=== PATIENT | female | born 1950 | race Caucasian/White ===

== ENCOUNTER 2016-05-11 08:37 | Inpatient (IN) | payer OTHER, MEDICARE ==
[~2016-05-11] VITALS: Ht 170.2 cm; Wt 70.8 kg
--- NOTE | 2016-05-11 09:00 | NUR ---
PT BIBA FROM DIALYSIS WHERE SHE WAS SNF THROUGH HER DIALYSIS WHEN SHE WILFRED DOWN INTO THE 30'S. PER EMS, UPON THEIR ARRIVAL PT BECAME UNRESPONSIVE. UPON ARRIVAL TO ED, PT BEING BAGGED BY EMS, PER EMS, UNABLE TO INTUBATE D/T GAG REFLEX. UPON ARRIVAL, RT AND DR JASMINE AT BEDSIDE. BIPAP PLACED AND PT MOANING CONSTANTLY. PT FOLLOWING COMMANDS TO OPEN EYES. PT MOVING ALL OVER STRETCHER. PT USUALLY SEEN AT [facility]
[2016-05-11 09:10] LABS: ABSOLUTE BASOPHIL COUNT 0.1 /CUMM (0.0-0.2); ABSOLUTE EOSINOPHIL COUNT 0.4 /CUMM (0.0-0.7); ABSOLUTE GRANULOCYTE CT 11.8 /CUMM (1.4-6.5); ABSOLUTE LYMPH COUNT 2.7 /CUMM (1.2-3.4); ABSOLUTE MONOCYTE COUNT 0.5 /CUMM (0.10-0.60); BASOPHIL % 0.4 % (0.0-2.0); EOSINOPHIL % 2.4 % (0-5); GRANULOCYTE % 76.7 % (42.2-75.2); HEMATOCRIT 22.4 % (37-47); MEAN CORPUSCULAR HGB 30.8 PG (27.0-31.0); MEAN PLATELET VOLUME 8.4 FL (7.4-10.4); PLATELET COUNT 447 /CUMM (130-400); RBC DISTRIBUTION WIDTH 17.4 % (11.5-14.5); RED BLOOD CELL CT 2.34 /CUMM (4.20-5.40); WHITE BLOOD CELL COUNT 15.3 /CUMM (4.8-10.8)
--- NOTE | 2016-05-11 09:10 | ED GENERAL ADULT ---
History of Present Illness General Chief Complaint: General Adult Stated Complaint: UNRESPONSIVE Source: EMS Exam Limitations: unable to give history Vital Signs & Intake/Output Vital Signs & Intake/Output Vital Signs Date Time Temp Pulse Resp B/P Pulse O2 O2 Flow FiO2 Ox Delivery Rate 05/11 1006 96.1 78 22 154/68 100 BIPAP 100% 05/11 0930 96.4 80 22 174/78 100 BIPAP 05/11 0859 106 100 05/11 0857 180/62 05/11 0852 95.2 82 22 202/117 100 BIPAP 100% Allergies Coded Allergies: No Known Allergies (05/11/16) Reconcile Medications Amlodipine Besylate 10 MG TABLET 1 TAB PO DAILY HEART (Reported) Calcium Acetate 667 MG TABLET 3 TAB PO TIDAC UNKNOWN (Reported) Carvedilol 3.125 MG TABLET 1 TAB PO BID HEART (Reported) Ergocalciferol (Vitamin D2) (Vitamin D2) 50,000 UNIT CAPSULE 1 CAP PO DAILY SUPPLEMENT (Reported) Eszopiclone (Lunesta) 1 MG TABLET 1 TAB PO QPM SLEEP (Reported) Furosemide (Lasix) 40 MG TABLET 1 TAB PO DAILY WATER PILL (Reported) Hydralazine HCl 25 MG TABLET 2 TAB PO TID UNKNOWN (Reported) Insulin Glargine,Hum.rec.anlog (Lantus Solostar) 100 UNIT/ML (3 ML) INSULN.PEN 10 U SC 1200 DIABETES (Reported) Lisinopril 40 MG TABLET 1 TAB PO DAILY HEART (Reported) Multivitamin (Daily Multiple Vitamin) 1 EACH TABLET 1 TAB PO DAILY SUPPLEMENT (Reported) Sertraline HCl 50 MG TABLET 1 TAB PO DAILY MENTAL HEALTH (Reported) Warfarin Sodium (Coumadin) 5 MG TABLET 1 TAB PO Fri BLOOD THINNER ( Reported) Warfarin Sodium (Coumadin) 7.5 MG TABLET 1 TAB PO Fri BLOOD THINNER ( Reported) Triage Note: PT BIBA FROM DIALYSIS WHERE SHE WAS DETENTION THROUGH HER DIALYSIS WHEN SHE WILFRED DOWN INTO THE 30'S. PER EMS, UPON THEIR ARRIVAL PT BECAME UNRESPONSIVE. UPON ARRIVAL TO ED, PT BEING BAGGED BY EMS, PER EMS, UNABLE TO INTUBATE D/T GAG REFLEX. UPON ARRIVAL, RT AND DR JASMINE AT BEDSIDE. BIPAP PLACED AND PT MOANING CONSTANTLY. PT FOLLOWING COMMANDS TO OPEN EYES. PT MOVING ALL OVER STRETCHER. PT USUALLY SEEN AT [facility] HPI: Patient 77-year-old lady with past medical history of ESRD requiring dialysis, HTN, anemia requiring high doses of EPO, is BIBA after having difficulty breathing and destaurating in the 60s while going through dialysis. Even though pt is awake, she is minimally responsive and not able to give a history. Per EMS , pt became unresponsive while dialysing, her heart rate was in the 30s which came back to the 50s when she was bagged. Due to gag reflex, was unable to be intubated by EMS. Pt receives dialysis at [facility], had only been dialysed 300mls, before she destaurated. Pt does not have any medical records at [place], normally goes to [facility]. (BRE SÁNCHEZ MD) Triage Nurses Notes Reviewed? yes (MAO JASMINE MD) Past History Travel History Traveled to [place] past 21 day No Psychosocial History What is your primary language Stateless Tobacco Use: UN (BRE SÁNCHEZ MD) Medical History Any Pertinent Medical History? see below for history Surgical History Surgical History: non-contributory Family History Hx Contributory? No (MAO JASMINE MD) Review of Systems Review of Systems Constitutional: Reports: see HPI. Respiratory: Reports: see HPI. (MAO JASMINE MD) Physical Exam Physical Exam General Appearance: awake, moderate distress Head: atraumatic, normal appearance Eyes: Bilateral: PERRL. Neck: normal inspection, supple, full range of motion Respiratory: crackles Cardiovascular: regular rate/rhythm Gastrointestinal: normal bowel sounds, soft Extremities: normal capillary refill, no edema Skin: intact, normal color, warm/dry (BRE SÁNCHEZ MD) Physical Exam Neurologic/Psych: VERBAL TO PAINFUL STIMULAE Core Measures ACS in differential dx? Yes CVA/TIA Diagnosis: No Severe Sepsis Present: No Septic Shock Present: No (MAO JASMINE MD) Progress Differential Diagnoses I considered the following diagnoses in my evaluation of the patient: pulmonary edema, TN, PE, Cardiac tamponade, PNA, ARDS. Plan of Care: Orders Procedure Date/time Status Patient Data 05/11 945 Active Admit to inpatient 05/11 939 Active BIPAP 05/11 935 Complete Lab Add-on Test 05/11 921 Active Restraint- Medical 05/11 907 Active URINALYSIS 05/11 0850 Complete TYPE & SCREEN (NOT X-MATCH) 05/11 0843 Active ARTERIAL BLOOD GAS (GEN) 05/11 841 Complete XRY-PORTABLE CHEST XRAY 05/11 841 Active Telemetry/Neurological Surgeon 05/11 841 Active TROPONIN LEVEL 05/11 841 Complete COMPREHENSIVE METABOLIC PANEL 05/11 841 Complete CBC WITHOUT DIFFERENTIAL 05/11 841 Complete EKG 05/11 08 Active Laboratory Tests 05/11/16 0850: Urinalysis LIGHT H, Urine Color YEL, Urine Clarity CLEAR, Urine pH 7.5, Ur Specific [place] 1.020, Urine Protein >=300 H, Urine Ketones NEG, Urine Nitrite NEG, Urine Bilirubin NEG, Urine Urobilinogen 0.2, Ur Leukocyte Esterase NEG, Ur Microscopic SEDIMENT EXAMINED, Urine RBC 1-3, Urine WBC 1-3 H, Ur Epithelial Cells RARE, Urine Mucus RARE, Urine Hemoglobin TRACE-LYSED, Urine Glucose 100 H 05/11/16 0843: Anion Gap 15, Estimated GFR 15 L, BUN/Creatinine Ratio 6.6 L, Glucose 312 H, Calcium 7.8 L, Total Bilirubin 0.5, AST 60 H, ALT 43, Alkaline Phosphatase 178 H, Troponin I 0.02, Total Protein 6.4, Albumin 3.6, Globulin 2.8, Albumin/ Globulin Ratio 1.3, CBC w Diff NO MAN DIFF REQ, RBC 2.34 L, MCV 96.0, MCH 30.8, RDW 17.4 H, MPV 8.4, Gran % 76.7 H, Lymphocytes % 17.4 L, Monocytes % 3.1, Eosinophils % 2.4, Basophils % 0.4, Absolute Granulocytes 11.8 H, Absolute Lymphocytes 2.7, Absolute Monocytes 0.5, Absolute Eosinophils 0.4, Absolute Basophils 0.1, PUBS MCHC 32.0 L Initial ED EKG: normal axis, no ST T wave changes Comments: Spoke to Dr De La O (Nephro) and discussed the case. He reccomended to continue stabilizing the patient and f/u with CXR, trops and CBC. At this point no need for emergent dialysis, and pt will be revaluated for any status changes, and will be seen later today by Nephrology. (GONZALO MONTANO,BRE) Differential Diagnoses I considered the following diagnoses in my evaluation of the patient: (MAO JASMINE MD) Departure Departure Disposition: STILL A PATIENT Condition: Stable Departure Forms: Customer Survey General Discharge Information (GONZALO MONTANO,BRE) Departure Clinical Impression Primary Impression: Respiratory failure Secondary Impressions: Anemia, Chronic renal failure, Symptomatic bradycardia Admission Note Spoke With: KULDEEP CHAVEZ MD Documentation of Exam: Documentation of any treatments & extenuating circumstances including Concerns Regarding Discharge (functional status, medication knowledge or non-compliance, living conditions, etc.) that warrant an admission rather than observation: [ Patient sent in from dialysis after going unresponsive. Shortly after starting dialysis. Patient had agonal respirations and her heart rate dropped to 30. The heart rate increased after EMS began to ventilator with a BVM. Upon presentation to the emergency room patient is attempted to pull off her mask but is not following any commands. She has rales in all [place]. Positive JVD. Her heart rate and blood pressure have normalized. Patient is responding to BiPAP. Patient is currently verbal however not following commands. Nephrology and cardiology have been consult 2. Patient will go to the intensive care unit. Patient will require dialysis. Patient will require transfusion during dialysis.] (MAO JASMINE MD) Critical Care Note Critical Care Note Critical Care Time: mins: (90 MIN) (MAO JASMINE MD)
--- NOTE | 2016-05-11 09:28 | NUR ---
CRITICAL TEST RESULTS [id number] YASEMIN SZYMANSKI 66 F TESTS AND RESULTS: H&H 7.2.4 Results received and read back by: REGGIE ORLANDO Results received date and time: 05/11/16 0928 The following provider was notified of the results, and read the results back: DR JASMINE Notified date and time: 05/11/16 at 0928
--- NOTE | 2016-05-11 09:39 | NUR ---
PCXR AT BEDSIDE
--- NOTE | 2016-05-11 09:40 | NUR ---
RT AT BEDSIDE TO CHANGE MASK
[2016-05-11] MEDS ORDERED: CARVEDILOL3.125 M1 PO (09:51)
[2016-05-11] MEDS ORDERED: DAILY MULTIPLE1 EACH PO (09:51)
[2016-05-11] MEDS ORDERED: AMLODIPINE BESY10 M1 PO (09:51)
[2016-05-11] MEDS ORDERED: LUNESTA1 MG PO (09:52)
[2016-05-11] MEDS ORDERED: HYDRALAZINE HCL25 M1 PO (09:52)
[2016-05-11] MEDS ORDERED: LISINOPRIL40 M1 PO (09:52)
[2016-05-11] MEDS ORDERED: SERTRALINE HCL50 MG PO (09:53)
--- NOTE | 2016-05-11 09:53 | NUR ---
HOUSE STAFF AND FAMILY AT BEDSIDE , PT REMIANS ON BIPAP, O2 SAT 99 % AT 100 A5 PT NOTED TO BE VERY ANXIOUS, REPEATING SHE CANT BREATHE, RESP AT BEDSIDE TO ADJUST FACE MASK.
[2016-05-11] MEDS ORDERED: CALCIUM ACETAT667 M2 PO (09:54)
[2016-05-11] MEDS ORDERED: COUMADIN5 M2 PO (09:55)
[2016-05-11] MEDS ORDERED: COUMADIN7.5 M1 PO (09:55)
[2016-05-11] MEDS ORDERED: LASIX40 M1 PO (09:56)
[2016-05-11] MEDS ORDERED: LANTUS SOL100 UNIT/1 SC (09:57)
--- NOTE | 2016-05-11 09:57 | NUR ---
RAD AT BEDSIDE TO DO REPEAT CXR
[2016-05-11] MEDS ORDERED: VITAMIN D250000 UNIT PO (09:58)
--- NOTE | 2016-05-11 10:08 | History & Physical ---
RANJEET GAY 05/11/16 1008: General Information and HPI MD Statement: I have seen and personally examined YASEMIN SZYMANSKI and documented this H&P. The patient is a 66 year old F who presented with a patient stated chief complaint of [Shortness of breath]. Source of Information: patient, family, EMS Exam Limitations: no limitations History of Present Illness: This is a 66 years old with medical history of end-stage renal disease on hemodialysis Friday and Friday, hypertension, diabetes mellitus, depression who was brought in by ambulance from hemodialysis facility after presenting with acute onset shortness of breath was followed by bradycardia and unresponsiveness midway through hemodialysis. The patient reports to have pain in her usual state of health and this morning was dropped by her at the dialysis facility. She denies any fever or chills, she has no cough sick contacts or shortness of breath prior to this index episode. She denies taking any new kind of food or medications prior to onset of symptoms. Patient has end-stage renal disease and is on hemodialysis since 2014 she has managed to get down and she has been worked up for a renal transplant in May 2016. Her tank builder is Dr. Rivera she denies following up with any other medical insurance verifier up at from battery starter visit for transplant clearance. Patient reports that she has been taking her blood pressure medications as instructed and her pressure has been well controlled. She is also compliant with her diabetic diet and taking insulin as instructed. She denies any lightheadedness or dizziness, she has no nausea or vomiting, she has no urinary symptoms like increased urine frequency burning sensation or sense of incomplete emptying. She denies any diarrhea or recent change in appetite. She has no chest pain or palpitations. Allergies/Medications Allergies: Coded Allergies: No Known Allergies (05/11/16) Home Med list Amlodipine Besylate 10 MG TABLET 1 TAB PO DAILY HEART (Reported) Calcium Acetate 667 MG TABLET 3 TAB PO TIDAC UNKNOWN (Reported) Carvedilol 3.125 MG TABLET 1 TAB PO BID HEART (Reported) Ergocalciferol (Vitamin D2) (Vitamin D2) 50,000 UNIT CAPSULE 1 CAP PO DAILY SUPPLEMENT (Reported) Eszopiclone (Lunesta) 1 MG TABLET 1 TAB PO QPM SLEEP (Reported) Furosemide (Lasix) 40 MG TABLET 1 TAB PO DAILY WATER PILL (Reported) Hydralazine HCl 25 MG TABLET 2 TAB PO TID UNKNOWN (Reported) Insulin Glargine,Hum.rec.anlog (Lantus Solostar) 100 UNIT/ML (3 ML) INSULN.PEN 10 U SC 1200 DIABETES (Reported) Lisinopril 40 MG TABLET 1 TAB PO DAILY HEART (Reported) Multivitamin (Daily Multiple Vitamin) 1 EACH TABLET 1 TAB PO DAILY SUPPLEMENT (Reported) Sertraline HCl 50 MG TABLET 1 TAB PO DAILY MENTAL HEALTH (Reported) Warfarin Sodium (Coumadin) 5 MG TABLET 1 TAB PO Fri BLOOD THINNER ( Reported) Warfarin Sodium (Coumadin) 7.5 MG TABLET 1 TAB PO Fri BLOOD THINNER ( Reported) Past History Travel History Traveled to [place] past 21 day No Surgical History Surgical History: cholecystectomy Past Family/Social History Family History Relations & Conditions if any MOTHER (Diabetes mellitus). Psychosocial History Smoking Status: Never Smoked ETOH Use: denies use Illicit Drug Use: denies illicit drug use Living Will? no Functional Ability ADLs Independent: dressing, eating, toileting, bathing. Ambulation: independent IADLs Independent: shopping, housework, finances, food prep, telephone, transportation , medication admin. Review of Systems Review of Systems Constitutional: Denies: chills, diaphoresis, fever. Cardiovascular: Denies: chest pain, palpitations. Respiratory: Denies: cough, orthopnea, short of breath, sputum production. GI: Denies: abdominal pain, nausea, vomiting. Genitourinary: Denies: dysuria, hesitation, urgency. Musculoskeletal: Denies: no symptoms. Skin: Denies: no symptoms. Neurological/Psychological: Denies: no symptoms. Hematologic/Endocrine: Denies: no symptoms. Immunologic/Allergic: Denies: no symptoms. Comments All other systems reviewed and are negative Exam & Diagnostic Data Last 24 Hrs of Vital Signs/I&O Vital Signs Date Time Temp Pulse Resp B/P Pulse O2 O2 Flow FiO2 Ox Delivery Rate 05/11 1137 96.0 64 18 103/53 100 BIPAP 100% 05/11 1052 77 18 122/58 99 BIPAP 100% 05/11 1045 100 05/11 1006 96.1 78 22 154/68 100 BIPAP 100% 05/11 0930 96.4 80 22 174/78 100 BIPAP 05/11 0859 106 100 05/11 0857 180/62 05/11 0852 95.2 82 22 202/117 100 BIPAP 100% Intake & Output 05/11 1600 05/11 0800 05/11 0000 Intake Total Output Total 75 Balance -75 Output, Urine 75 Patient 168 lb Weight Physical Exam General Appearance Alert, Oriented X3, Cooperative, No Acute Distress Skin No Rashes, No Breakdown HEENT Atraumatic, PERRLA, Mucous Membr. moist/pink, slight facial puffiness Neck Supple, No JVD Cardiovascular Regular Rate, Normal S1, Normal S2, systolic murmur Lungs transmitted sounds with basilar crackles Abdomen Normal Bowel Sounds, Soft, No Tenderness Neurological Strength at 5/5 X4 Ext, Normal Tone Extremities No Clubbing, No Cyanosis, mild pitting edema Vascular Normal Pulses Last 24 Hrs of Labs/Anupam: Laboratory Tests 05/11/16 1150: APTT Cancelled 05/11/16 1015: pH 7.27 *L, pCO2 51 H, pO2 155 H, HCO3 24, ABG O2 Sat (Measured) 98.0, P-50 ( Temp Corrected) Y, Carboxyhemoglobin 1.1 L, O2 Concentration % 100, Temperature 96.1 L, Respiration Rate 22, O2 Delivery Method BIPAP, Vent Mode ST, Expiratory Pressure 6, Inspiratory Pressure 18, Phlebotomy Draw Site LEFT RADIAL 05/11/16 0850: Methadone Screen Pending, Barbiturate Screen Pending, Ur Phencyclidine Scrn Pending, Amphetamines Screen Pending, U Benzodiazepines Scrn Pending, Urine Cocaine Screen Pending, Urine Cannabis Screen Pending, Urinalysis LIGHT H, Urine Color YEL, Urine Clarity CLEAR, Urine pH 7.5, Ur Specific [place] 1.020, Urine Protein >=300 H, Urine Ketones NEG, Urine Nitrite NEG, Urine Bilirubin NEG, Urine Urobilinogen 0.2, Ur Leukocyte Esterase NEG, Ur Microscopic SEDIMENT EXAMINED, Urine RBC 1-3, Urine WBC 1-3 H, Ur Epithelial Cells RARE, Urine Mucus RARE, Urine Hemoglobin TRACE-LYSED, Urine Glucose 100 H 05/11/16 0843: Anion Gap 15, Estimated GFR 15 L, BUN/Creatinine Ratio 6.6 L, Glucose 312 H, Lactic Acid 2.6 H, Calcium 7.8 L, Total Bilirubin 0.5, AST 60 H, ALT 43, Alkaline Phosphatase 178 H, Troponin I 0.02, Total Protein 6.4, Albumin 3.6, Globulin 2.8, Albumin/Globulin Ratio 1.3, CBC w Diff NO MAN DIFF REQ, RBC 2.34 L, MCV 96.0, MCH 30.8, RDW 17.4 H, MPV 8.4, Gran % 76.7 H, Lymphocytes % 17.4 L, Monocytes % 3.1, Eosinophils % 2.4, Basophils % 0.4, Absolute Granulocytes 11.8 H, Absolute Lymphocytes 2.7, Absolute Monocytes 0.5, Absolute Eosinophils 0.4, Absolute Basophils 0.1, PUBS MCHC 32.0 L 05/11/16 0842: PT 24.0 H, INR 2.30 H, APTT 37 Microbiology 05/11 1321 URINE ROUT: Urine Culture - CAN Cancelled: Cancelled via OE: Per MD Decision 05/11 1321 BLOOD: Blood Culture - ORD 05/11 1321 BLOOD: Blood Culture - ORD 05/11 1254 URINE ROUT: Legionella Antigen - CAN Cancelled: Cancelled via OE: Per MD Decision 05/11 1254 LOWER RESP: Respiratory Culture - ORD 05/11 1254 LOWER RESP: Gram Stain - ORD 05/11 1248 GI: Surveillance Culture - ORD 05/11 1041 UPPER RESP: Surveillance Culture - ORD Diagnostic Data EKG Results Sinus rhythm normal axis regular around [address]-T wave changes CXR Results Bilateral diffuse alveolar opacities are seen. Findings may represent ARDS in the clinical setting provided. Diffuse pulmonary edema or diffuse pneumonia can also be considered in the differential. Clinical correlation requested. Other Results Lactic acid 2.6 Assessment/Plan Assessment: 6 years old lady with an distended renal disease on hemodialysis, hypertension, diabetes mellitus and depression who presented after acute onset shortness of breath associated with bradycardia and unresponsiveness. On arrival the patient was dyspneic on antibiotics and improved significantly on BiPAP. Problem list Hypercarbic respiratory failure Diffuse pneumonia/pulmonary edema Anemia Lactic acidosis End-stage renal disease on hemodialysis Hypertension Diabetes mellitus A shunt admitted to the intensive care unit, vital signs every hour, continuous pulse oximetry, nothing by mouth Blood gas analysis one hour after initiation of BiPAP shows respiratory acidosis pH 7.27 with carbon dioxide of 51 continue with BiPAP Diffuse pneumonia/pulmonary edema: We will check urine Legionella and streptococcus antigens, lower respiratory culture, blood culture 2 times, cover the patient with IV contrast has been 1000 mg daily after dialysis, vancomycin 1000 mg after dialysis, azithromycin 500 mg daily. Anemia: Patient with end-stage renal disease whose blood level was reported to be always low. We have no previous hemoglobin levels to compare, but did hedge and head shows hemoglobin of 6.1 and hematocrit of 19 will give one transfusion of leukocyte reduced red blood cells during the dialysis. Continue to monitor H &H End-stage renal disease: Patient on hemodialysis Friday and Friday patient incomplete hemodialysis today. From chest x-ray had to rule out if has pulmonary edema. Assessment of the fistula shows that its clogged, we will get in a non-tunneled IJ catheter emergence dialysis. Patient seen by tank builder. Hypertension: Patient with history of hypertension on lisinopril hydralazine and amlodipine at home. Blood pressure is controlled. We'll restart home blood pressure medications and continue to monitor blood pressure. Diabetes mellitus: History of diabetes mellitus on insulin at home, patient is currently nothing by mouth and will be on insulin sliding scale for nothing by mouth, continue to monitor blood sugar. CODE STATUS: Full Code As Ranked By This Provider Problem List: 1. Respiratory failure 2. Anemia 3. End stage kidney disease 4. Hypertension 5. Depression Core Measures/Miscellaneous Acute Coronary Syndrome ACS Diagnosis: No Cerebrovascular Accident CVA/TIA Diagnosis: No Congestive Heart Failure CHF Diagnosis: No Venous Thromboembolism VTE Risk Factors: Acute medical illness, Age > 40 VTE Prophylaxis [facility]dered Inpt[facility] prophylaxis d/t: No contraindications No VTE Pharm Prophylaxis d/t: No contraindications VTE Diagnosis: No VTE Type: NONE VTE Confirmed by (Test): NONE Severe Sepsis Severe Sepsis Present: No Septic Shock Septic Shock Present: No Miscellaneous Documentation Attending Case Discussed With: KULDEEP CHAVEZ MD Primary Care Physician: TIA MORTENSEN MD Patient sees these Specialists Dr. Rivera Level of Patient Care: Critical Care (CRI) Consults Needed: Consulting Specialty: Cardiology Resident Review Statement Resident Statement: examined this patient, discussed with family, reviewed EMR data (avail) Other Findings: I did the initial review above KULDEEP CHAVEZ MD 05/11/16 0399: Attending Review Statement Attending Statement Attending Statement: examined this patient, discuss w/resident/PA/ENTOMOLOGY PROFESSOR, agreed w/resident/PA/ENTOMOLOGY PROFESSOR, discussed with family, reviewed EMR data (avail), discussed with nursing, discussed with case mgmt, reviewed images, amended to note Attending Assessment/Plan: 66-year-old female with history of end-stage renal disease on hemodialysis awaiting for renal transplant evaluation, hypertension, diabetes comes in with complaints of acute onset of shortness of breath and bradycardia with subsequent unresponsiveness at the hemodialysis center. intubation was attempted by EMS in the field, but wasn't successful. She was immediately brought to [facility] where she was stabilized on BiPAP. Chest x- ray done in the ER showed? ARDS/pulmonary edema/infiltrates. Dr. Chaudhary, Dr. Cary and the tank builder was contacted by the ER physician. Patient's and son were at the bedside. She usually goes to [facility]. Vital Signs Date Time Temp Pulse Resp B/P Pulse O2 O2 Flow FiO2 Ox Delivery Rate 05/11 1546 57 99 05/11 1429 51 98 05/11 1232 61 100 05/11 1137 96.0 64 18 103/53 100 BIPAP 100% 05/11 1052 77 18 122/58 99 BIPAP 100% 05/11 1045 100 05/11 1006 96.1 78 22 154/68 100 BIPAP 100% 05/11 0930 96.4 80 22 174/78 100 BIPAP 05/11 0859 106 100 05/11 0857 180/62 05/11 0852 95.2 82 22 202/117 100 BIPAP 100% Pertinent positive physical exam: Alert, awake, mild distress on BiPAP. Chest-Bilateral rhonchi and crackles Heart-S1,S2, murmur LE- no edema. Problem list 1. Acute respiratory failure- unclear etiology. Secondary to ? ARDS/ pulmonary edema/fluid overload/? Pneumonia 2. Chronic anemia resistant to EPO and IV iron 3. End-stage renal disease on hemodialysis 4. Dialysis fistula thrombosis Recommendations 1. Panculture. Check flu swab . Start IV vancomycin and ceftaz. Appreciate pulmonary input. 2. Patient will need urgent dialysis. But with a thrombosed dialysis fistula she'll need another line. As per renal she'll need nontunnel catheter which can be placed by IR. Awaiting IR input. 3. If repeat x-ray following hemodialysis does not show improvement will need a CT chest. 4. Monitor closely, low threshold for intubation if respiratory status deteriorates. 5. DVT prophylaxis.
--- NOTE | 2016-05-11 10:12 | NUR ---
RT AT BEDSIDE FOR ABG
--- NOTE | 2016-05-11 10:24 | NUR ---
DR GAY AT BEDSIDE FOR HOLDING ORDERS. PT MEDICATED WITH 0.25 MG ATIVAN IV FOR ANXIETY
--- NOTE | 2016-05-11 10:29 | RADIOLOGY REPORT ---
EXAMINATION: XR PORTABLE CHEST CLINICAL INFORMATION: Unresponsive. COMPARISON: None. TECHNIQUE: AP semierect portable view of the chest. FINDINGS: Cardiac mediastinal silhouette borderline enlarged. Calcification of aorta are noted. Lungs bilaterally symmetrically expanded with diffuse fluffy perihilar parenchymal opacities. No pleural effusion or pneumothorax. Multilevel vertebral spondylosis. Gaseous distention of stomach in the left upper quadrant. IMPRESSION: Bilateral diffuse alveolar opacities are seen. Findings may represent ARDS in the clinical setting provided. Diffuse pulmonary edema or diffuse pneumonia can also be considered in the differential. Clinical correlation requested.
--- NOTE | 2016-05-11 10:55 | NUR ---
PT IS GOING TO 101.
--- NOTE | 2016-05-11 11:19 | NUR ---
ICU NURSE UNABLE TO TAKE REPORT AT THIS TIME
--- NOTE | 2016-05-11 11:50 | NUR ---
DR OJEDA AT BEDSIDE, DR WHEELER AT BEDSIDE
--- NOTE | 2016-05-11 11:50 | NUR ---
REPORT TO JOEY CAMPOS. PT TO GO TO CT SCAN PRIOR TO ICU
--- NOTE | 2016-05-11 11:52 | NUR ---
CT SCAN IS BEING CANCELLED UNTIL AFTER DIALYSIS PER DR OJEDA
--- NOTE | 2016-05-11 12:06 | Cons- Nephrology ---
General Information and HPI Consulting Request Date of Consult: 05/11/16 Requested By: KULDEEP CHAVEZ MD Reason for Consult: ESRD & SOB Source of Information: patient, family, old records Exam Limitations: clinical condition History of Present Illness: 52 yr old WF w mult med problems including HTN, DM & ESRD on chronic HD. Admit today after developing resp distress w/o CP ~ 1 hr into HD. Found have bilat pulm infiltrates & hypercapnic resp failure requiring BiPaP w clinical improvement. Denies CP but had nonproductive cough w/o fever prior to HD. No vomiting. Known severe anemia resistant to EPO & IV Fe w last outpt Hg ~ 6.1. 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 In process of LD renal transplant eval/planning. Allergies/Medications Allergies: Coded Allergies: No Known Allergies (05/11/16) Home Med List: Amlodipine Besylate 10 MG TABLET 1 TAB PO DAILY HEART (Reported) Calcium Acetate 667 MG TABLET 3 TAB PO TIDAC UNKNOWN (Reported) Carvedilol 3.125 MG TABLET 1 TAB PO BID HEART (Reported) Ergocalciferol (Vitamin D2) (Vitamin D2) 50,000 UNIT CAPSULE 1 CAP PO DAILY SUPPLEMENT (Reported) Eszopiclone (Lunesta) 1 MG TABLET 1 TAB PO QPM SLEEP (Reported) Furosemide (Lasix) 40 MG TABLET 1 TAB PO DAILY WATER PILL (Reported) Hydralazine HCl 25 MG TABLET 2 TAB PO TID UNKNOWN (Reported) Insulin Glargine,Hum.rec.anlog (Lantus Solostar) 100 UNIT/ML (3 ML) INSULN.PEN 10 U SC 1200 DIABETES (Reported) Lisinopril 40 MG TABLET 1 TAB PO DAILY HEART (Reported) Multivitamin (Daily Multiple Vitamin) 1 EACH TABLET 1 TAB PO DAILY SUPPLEMENT (Reported) Sertraline HCl 50 MG TABLET 1 TAB PO DAILY MENTAL HEALTH (Reported) Warfarin Sodium (Coumadin) 5 MG TABLET 1 TAB PO Fri BLOOD THINNER ( Reported) Warfarin Sodium (Coumadin) 7.5 MG TABLET 1 TAB PO Fri BLOOD THINNER ( Reported) Current Medications: Current Medications Sig/Su Start time Last Medication Dose Route Stop Time Status Admin Lorazepam 0 .STK-MED ONE 05/11 1023 DC .ROUTE Lorazepam 0.25 MG ONCE ONE 05/11 1015 DC 05/11 IV 05/11 1016 1023 Review of Systems Review of Systems Constitutional: Denies: chills, fever. EENTM: Reports: no symptoms. Cardiovascular: Reports: see HPI. Respiratory: Reports: see HPI. GI: Reports: no symptoms. Genitourinary: Reports: no symptoms. Musculoskeletal: Reports: no symptoms. Skin: Reports: no symptoms. Neurological/Psychological: Reports: confusion. Hematologic/Endocrine: Reports: see HPI. Immunologic/Allergic: Reports: see HPI. Past History Travel History Traveled to [place] past 21 day No Surgical History Surgical History: non-contributory Exam & Diagnostic Data Vital Signs and I&O Vital Signs Date Time Temp Pulse Resp B/P Pulse O2 O2 Flow FiO2 Ox Delivery Rate 05/11 1137 96.0 64 18 103/53 100 BIPAP 100% 05/11 1052 77 18 122/58 99 BIPAP 100% 05/11 1045 100 05/11 1006 96.1 78 22 154/68 100 BIPAP 100% 05/11 0930 96.4 80 22 174/78 100 BIPAP 05/11 0859 106 100 05/11 0857 180/62 05/11 0852 95.2 82 22 202/117 100 BIPAP 100% Intake & Output 05/11 1600 05/11 0400 05/10 1600 05/10 0400 05/09 1600 05/09 0400 Intake Total Output Total 75 Balance -75 Output, Urine 75 Patient 168 lb Weight Physical Exam General Appearance: well developed/nourished, lethargic Head: atraumatic, normal appearance Eyes: Bilateral: normal appearance. Ears, Nose, Throat: normal ENT inspection, bipap mask Neck: normal inspection Respiratory: crackles Cardiovascular: regular rate/rhythm, friction rub (none) Gastrointestinal: soft, non-tender, no organomegaly Extremities: no edema, RICHARD AVG w/o bruit - needles inplace from outpt HD Neurologic/Psych: education nurse II-XII nml as tested, arouseable w/o obvious focal defecits Skin: intact, normal color, warm/dry Lymphatic: no anterior cervical gage Results Pertinent Lab Results: Laboratory Tests 05/11 05/11 1150 1015 Blood Gas pH (7.35 - 7.45 PH) 7.27 *L pCO2 (35 - 45 TORR) 51 H pO2 (80 - 100 TORR) 155 H HCO3 (21 - 28 MEQ/L) 24 ABG O2 Sat (Measured) (>96.0 %) 98.0 P-50 (Temp Corrected) Y Carboxyhemoglobin (1.5 - 5.0 %) 1.1 L O2 Concentration % 100 Temperature (97.0 - 100.0 FARH) 96.1 L Respiration Rate (BPM) 22 O2 Delivery Method BIPAP Vent Mode ST Expiratory Pressure (CM H2O P) 6 Inspiratory Pressure (CM H2O P) 18 Coagulation APTT Cancelled Miscellaneous Phlebotomy Draw Site LEFT RADIAL 05/11 05/11 0850 0843 Chemistry Sodium (137 - 145 mmol/L) 141 Potassium (3.5 - 5.1 mmol/L) 3.7 Chloride (98 - 107 mmol/L) 103 Carbon Dioxide (22 - 30 mmol/L) 24 Anion Gap (5 - 16) 15 BUN (7 - 17 mg/dL) 21 H Creatinine (0.5 - 1.0 mg/dL) 3.2 H Estimated GFR (>60 ml/min) 15 L BUN/Creatinine Ratio (7 - 25 %) 6.6 L Glucose (65 - 99 mg/dL) 312 H Calcium (8.4 - 10.2 mg/dL) 7.8 L Total Bilirubin (0.2 - 1.3 mg/dL) 0.5 AST (14 - 36 U/L) 60 H ALT (9 - 52 U/L) 43 Alkaline Phosphatase (<127 U/L) 178 H Troponin I (< 0.11 ng/ml) 0.02 Total Protein (6.3 - 8.2 g/dL) 6.4 Albumin (3.5 - 5.0 g/dL) 3.6 Globulin (1.9 - 4.2 gm/dL) 2.8 Albumin/Globulin Ratio (1.1 - 2.2 %) 1.3 Hematology CBC w Diff NO MAN DIFF REQ WBC (4.8 - 10.8 /CUMM) 15.3 H RBC (4.20 - 5.40 /CUMM) 2.34 L Hgb (12.0 - 16.0 G/DL) 7.2 *L Hct (37 - 47 %) 22.4 L MCV (81.0 - 99.0 FL) 96.0 MCH (27.0 - 31.0 PG) 30.8 RDW (11.5 - 14.5 %) 17.4 H Plt Count (130 - 400 /CUMM) 447 H MPV (7.4 - 10.4 FL) 8.4 Gran % (42.2 - 75.2 %) 76.7 H Lymphocytes % (20.5 - 51.1 %) 17.4 L Monocytes % (1.7 - 9.3 %) 3.1 Eosinophils % (0 - 5 %) 2.4 Basophils % (0.0 - 2.0 %) 0.4 Absolute Granulocytes (1.4 - 6.5 /CUMM) 11.8 H Absolute Lymphocytes (1.2 - 3.4 /CUMM) 2.7 Absolute Monocytes (0.10 - 0.60 /CUMM) 0.5 Absolute Eosinophils (0.0 - 0.7 /CUMM) 0.4 Absolute Basophils (0.0 - 0.2 /CUMM) 0.1 PUBS MCHC (33.0 - 37.0 G/DL) 32.0 L Urines Urinalysis LIGHT H Urine Color (YEL,AMB,STR) YEL Urine Clarity (CLEAR) CLEAR Urine pH (5.0 - 8.0) 7.5 Ur Specific [place] (1.001 - 1.035) 1.020 Urine Protein (NEG,<30 MG/DL) >=300 H Urine Ketones (NEG) NEG Urine Nitrite (NEG) NEG Urine Bilirubin (NEG) NEG Urine Urobilinogen (0.1 - 1.0 EU/dl) 0.2 Ur Leukocyte Esterase (NEG) NEG Ur Microscopic SEDIMENT EXAMINED Urine RBC (0 - 5 /HPF) 1-3 Urine WBC (0 - 2 /HPF) 1-3 H Ur Epithelial Cells (NONE,FEW) RARE Urine Mucus (FEW,NONE) RARE Urine Hemoglobin (NEG) TRACE-LYSED Urine Glucose (N MG/DL) 100 H Imaging/Other Studies: EXAMINATION: XR PORTABLE CHEST CLINICAL INFORMATION: Unresponsive. COMPARISON: None. TECHNIQUE: AP semierect portable view of the chest. FINDINGS: Cardiac mediastinal silhouette borderline enlarged. Calcification of aorta are noted. Lungs bilaterally symmetrically expanded with diffuse fluffy perihilar parenchymal opacities. No pleural effusion or pneumothorax. Multilevel vertebral spondylosis. Gaseous distention of stomach in the left upper quadrant. IMPRESSION: Bilateral diffuse alveolar opacities are seen. Findings may represent ARDS in the clinical setting provided. Diffuse pulmonary edema or diffuse pneumonia can also be considered in the differential. Clinical correlation requested. Assessment/Plan Assessment/Recommendations Assessment: 1. ESRD: due to DM & HTN; shortened HD today but AVG now clotted & will need IJ HD cath to complete. 2. Resp failure: doubt volume overload alone accounts for current picture w bilat infiltrates & leukocytosis but favor trial UF w HD as cover w antibiotics. Needs influenza excluded. Recommendations: 1. IR consult nontunneled HD cath 2. HD/UF later today 3. remove needles from AVG 3. antibitoic coverage 4. influenza screen 5. hold on any transfusion w stable Hg & upcoming plan for renal Tx
[2016-05-11 12:15] LABS: PTT 37 SEC (25-37)
[2016-05-11 12:25] VITALS: BP 130/52
--- NOTE | 2016-05-11 12:40 | Cons- CRCU ---
General Information and HPI Consulting Request Date of Consult: 05/11/16 Requested By: Dr. Olivarez Reason for Consult: Acute hypercarbic and hypoxemic respiratory failure Source of Information: patient, family Exam Limitations: clinical condition History of Present Illness: Patient is a 66-year-old woman. Consultation is requested in the emergency room department for hypoxemic and hypercarbic respiratory failure. Her medical problems include hypertension, diabetes and end-stage renal disease on chronic hemodialysis. She was getting hemodialysis and [place] today and about an hour into a developed chest pain and had an altered mental status. Upon presentation to the emergency room department and was considered to intubated the patient however she had a significant gag reflex and woke up and was alert and oriented. At the time she denied any chest pain without a cough she did have a sick contact with her who had a recent upper respiratory tract infection. She has known severe anemia that has been resistant to E Doyle and iron. Outpatient hemoglobin was 6.1 per nephrology and currently is 7.2. She also has had thrombosis of her AV graft requiring lysis in the past. She also is awaiting a renal transplantation. This morning she is on BiPAP after found to be hypercarbic and her blood gas showed pH of 7.27 PCO2 51 and a PO2 of 155. Creatinine is 3.2 with normal electrolytes. Troponin has been negative so far. Upon review she is on BiPAP and she is denying any new problems and overall does feel better without any new cough or fevers. She does have slight pitting edema that is trace. Allergies/Medications Allergies: Coded Allergies: No Known Allergies (05/11/16) Home Med List: Amlodipine Besylate 10 MG TABLET 1 TAB PO DAILY HEART (Reported) Calcium Acetate 667 MG TABLET 3 TAB PO TIDAC UNKNOWN (Reported) Carvedilol 3.125 MG TABLET 1 TAB PO BID HEART (Reported) Ergocalciferol (Vitamin D2) (Vitamin D2) 50,000 UNIT CAPSULE 1 CAP PO DAILY SUPPLEMENT (Reported) Eszopiclone (Lunesta) 1 MG TABLET 1 TAB PO QPM SLEEP (Reported) Furosemide (Lasix) 40 MG TABLET 1 TAB PO DAILY WATER PILL (Reported) Hydralazine HCl 25 MG TABLET 2 TAB PO TID UNKNOWN (Reported) Insulin Glargine,Hum.rec.anlog (Lantus Solostar) 100 UNIT/ML (3 ML) INSULN.PEN 10 U SC 1200 DIABETES (Reported) Lisinopril 40 MG TABLET 1 TAB PO DAILY HEART (Reported) Multivitamin (Daily Multiple Vitamin) 1 EACH TABLET 1 TAB PO DAILY SUPPLEMENT (Reported) Sertraline HCl 50 MG TABLET 1 TAB PO DAILY MENTAL HEALTH (Reported) Warfarin Sodium (Coumadin) 5 MG TABLET 1 TAB PO Fri BLOOD THINNER ( Reported) Warfarin Sodium (Coumadin) 7.5 MG TABLET 1 TAB PO Fri BLOOD THINNER ( Reported) Current Medications: Current Medications Sig/Su Start time Last Medication Dose Route Stop Time Status Admin Lorazepam 0 .STK-MED ONE 05/11 1023 DC .ROUTE Lorazepam 0.25 MG ONCE ONE 05/11 1015 DC 05/11 IV 05/11 1016 1023 Review of Systems Comments 18 point Review of Systems performed. Positive and negative pertinent findings are deliniated in the HPI. Otherwise the ROS is negative. Past History Travel History Traveled to [place] past 21 day No Surgical History Surgical History: non-contributory Family History Relations & Conditions If Any: MOTHER (Diabetes mellitus). Exam & Diagnostic Data Last 24 Hrs of Vital Signs/I&O Vital Signs Date Time Temp Pulse Resp B/P Pulse O2 O2 Flow FiO2 Ox Delivery Rate 05/11 1137 96.0 64 18 103/53 100 BIPAP 100% 05/11 1052 77 18 122/58 99 BIPAP 100% 05/11 1045 100 05/11 1006 96.1 78 22 154/68 100 BIPAP 100% 05/11 0930 96.4 80 22 174/78 100 BIPAP 05/11 0859 106 100 05/11 0857 180/62 05/11 0852 95.2 82 22 202/117 100 BIPAP 100% Intake & Output 05/11 1600 05/11 0800 05/11 0000 Intake Total Output Total 75 Balance -75 Output, Urine 75 Patient 168 lb Weight Physical Exam Other Physical Findings: General - Alert, awake and oriented HEENT - currently on BiPAP and arousable Cardiovascular - S1, S2 Lungs - bilateral rhonchi anterior chest Abdomen - soft, bowel sounds positive, no tenderness Extremities - trace pitting edema Normal capillary refill normal skin turgor Last 48 Hrs of Labs/Anupam: Laboratory Tests 05/11/16 1150: APTT Cancelled 05/11/16 1015: pH 7.27 *L, pCO2 51 H, pO2 155 H, HCO3 24, ABG O2 Sat (Measured) 98.0, P-50 ( Temp Corrected) Y, Carboxyhemoglobin 1.1 L, O2 Concentration % 100, Temperature 96.1 L, Respiration Rate 22, O2 Delivery Method BIPAP, Vent Mode ST, Expiratory Pressure 6, Inspiratory Pressure 18, Phlebotomy Draw Site LEFT RADIAL 05/11/16 0850: Urinalysis LIGHT H, Urine Color YEL, Urine Clarity CLEAR, Urine pH 7.5, Ur Specific [place] 1.020, Urine Protein >=300 H, Urine Ketones NEG, Urine Nitrite NEG, Urine Bilirubin NEG, Urine Urobilinogen 0.2, Ur Leukocyte Esterase NEG, Ur Microscopic SEDIMENT EXAMINED, Urine RBC 1-3, Urine WBC 1-3 H, Ur Epithelial Cells RARE, Urine Mucus RARE, Urine Hemoglobin TRACE-LYSED, Urine Glucose 100 H 05/11/16 0843: Anion Gap 15, Estimated GFR 15 L, BUN/Creatinine Ratio 6.6 L, Glucose 312 H, Lactic Acid 2.6 H, Calcium 7.8 L, Total Bilirubin 0.5, AST 60 H, ALT 43, Alkaline Phosphatase 178 H, Troponin I 0.02, Total Protein 6.4, Albumin 3.6, Globulin 2.8, Albumin/Globulin Ratio 1.3, CBC w Diff NO MAN DIFF REQ, RBC 2.34 L, MCV 96.0, MCH 30.8, RDW 17.4 H, MPV 8.4, Gran % 76.7 H, Lymphocytes % 17.4 L, Monocytes % 3.1, Eosinophils % 2.4, Basophils % 0.4, Absolute Granulocytes 11.8 H, Absolute Lymphocytes 2.7, Absolute Monocytes 0.5, Absolute Eosinophils 0.4, Absolute Basophils 0.1, PUBS MCHC 32.0 L 05/11/16 0842: PT Pending, INR Pending, APTT Pending Assessment/Plan Impression/Plan: Impression 66-year-old woman -Acute hypoxemic and hypercarbic respiratory failure with a broad differential could be fluid overload, pneumonia, possibly acute lung injury/ARDS -End-stage renal disease on dialysis -Chronic severe anemia appears stable with a hemoglobin of 7.2 baseline 6.1 last outpatient read per nephrology -Malfunctioning AV graft Plan Respiratory -keep spo2>92% -bipap for now -repeat abg after HD -hold CT chest until cxr performed after HD ID - begin vancomycin/ceftazadime empirically, would also give zithromax, - swab for influenza - pancx including sputum - monitor wbc, fevers CVS - monitor hemodynamics - check ECHO Heme - monitor cbc/coags - repeat cbc in 4 hrs, goal hgb >7 Metabolic - monitor ins/outs, creatinine, electrolytes - plan for HD, nephrology input - IR if AV graft has malfunctioned to insert a new access line - check lactate Neuro - no longer altered, would check utox DVT prophylaxis at all times Bakari Cary M.D. TTS 60 Min Consult Acknowledgment - Thank you for your consult request.
[2016-05-11 14:53] LABS: ABSOLUTE BASOPHIL COUNT 0 /CUMM (0.0-0.2); ABSOLUTE EOSINOPHIL COUNT 0 /CUMM (0.0-0.7); ABSOLUTE GRANULOCYTE CT 17.2 /CUMM (1.4-6.5); ABSOLUTE LYMPH COUNT 0.5 /CUMM (1.2-3.4); ABSOLUTE MONOCYTE COUNT 0.6 /CUMM (0.10-0.60); BASOPHIL % 0 % (0.0-2.0); EOSINOPHIL % 0 % (0-5); GRANULOCYTE % 94.1 % (42.2-75.2); MEAN CORPUSCULAR HGB 30.5 PG (27.0-31.0); MEAN CORPUSCULAR HGB CONC 31.9 G/DL (33.0-37.0); MEAN CORPUSCULAR VOLUME 95.5 FL (81.0-99.0); MEAN PLATELET VOLUME 8.1 FL (7.4-10.4); PLATELET COUNT 299 /CUMM (130-400); WHITE BLOOD CELL COUNT 18.2 /CUMM (4.8-10.8)
--- NOTE | 2016-05-11 14:57 | Cons- Cardiology ---
General Information and HPI Consulting Request Date of Consult: 05/11/16 Requested By: KULDEEP CHAVEZ MD Reason for Consult: Bradycardia Source of Information: old records Exam Limitations: unable to give history History of Present Illness: The patient is a 66-year-old female. She has a past medical history of end- stage renal disease, on hemodialysis, hypertension, diabetes, and depression. The patient was apparently at dialysis today. She developed acute onset of shortness of breath which was followed by the cardia with a heart rate in the 30s and subsequent unresponsiveness. Apparently, the patient was in her usual state of health prior to that time. There was no evidence of any prior illness, etc. There was no evidence of any chest discomfort, etc. at the time of the initial event. Since her respiratory status has improved, there has been no evidence of any further bradycardia. She does have occasional ventricular ectopy. Allergies/Medications Allergies: Coded Allergies: No Known Allergies (05/11/16) Home Med List: Amlodipine Besylate 10 MG TABLET 1 TAB PO DAILY HEART (Reported) Calcium Acetate 667 MG TABLET 3 TAB PO TIDAC UNKNOWN (Reported) Carvedilol 3.125 MG TABLET 1 TAB PO BID HEART (Reported) Ergocalciferol (Vitamin D2) (Vitamin D2) 50,000 UNIT CAPSULE 1 CAP PO DAILY SUPPLEMENT (Reported) Eszopiclone (Lunesta) 1 MG TABLET 1 TAB PO QPM SLEEP (Reported) Furosemide (Lasix) 40 MG TABLET 1 TAB PO DAILY WATER PILL (Reported) Hydralazine HCl 25 MG TABLET 2 TAB PO TID UNKNOWN (Reported) Insulin Glargine,Hum.rec.anlog (Lantus Solostar) 100 UNIT/ML (3 ML) INSULN.PEN 10 U SC 1200 DIABETES (Reported) Lisinopril 40 MG TABLET 1 TAB PO DAILY HEART (Reported) Multivitamin (Daily Multiple Vitamin) 1 EACH TABLET 1 TAB PO DAILY SUPPLEMENT (Reported) Sertraline HCl 50 MG TABLET 1 TAB PO DAILY MENTAL HEALTH (Reported) Warfarin Sodium (Coumadin) 5 MG TABLET 1 TAB PO Fri BLOOD THINNER ( Reported) Warfarin Sodium (Coumadin) 7.5 MG TABLET 1 TAB PO Fri BLOOD THINNER ( Reported) Current Medications: Current Medications Sig/Su Start time Last Medication Dose Route Stop Time Status Admin Azithromycin 500 MG ONCE ONE 05/11 1245 DC Dextrose/Water 250 ML IV 05/11 1344 Ceftazidime 1,000 MG DAILY 05/11 1300 AC IV Ceftazidime 2,000 MG DAILY 05/11 1230 CAN IV Insulin Human Regular 0 Q6 05/11 1324 AC SC Lorazepam 0 .STK-MED ONE 05/11 1023 DC .ROUTE Lorazepam 0.25 MG ONCE ONE 05/11 1015 DC 05/11 IV 05/11 1016 1023 Vancomycin HCl 1,000 MG ONCE ONE 05/11 1245 DC Dextrose/Water 250 ML IV 05/11 1344 Past History Travel History Traveled to [place] past 21 day No Medical History Blood Transfusion Hx: No Neurological: NONE EENT: NONE Cardiovascular: hypertension, hyperlipidemia Respiratory: NONE Gastrointestinal: CHRONIC DIARRHEA Hepatic: NONE Renal: ESRD on HD Musculoskeletal: chronic back pain Psychiatric: depression, insomnia Endocrine: diabetes, vitamin D deficiency Blood Disorders: anemia, 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 Psychosocial History Where Do You Live? Home Services at Home: None Smoking Status: Former Smoker ETOH Use: denies use Illicit Drug Use: denies illicit drug use Living Will? no Functional Ability ADLs Independent: dressing, eating, toileting, bathing. Ambulation: independent IADLs Independent: shopping, housework, finances, food prep, telephone, transportation , medication admin. Exam & Diagnostic Data Vital Signs and I&O Vital Signs Date Time Temp Pulse Resp B/P Pulse O2 O2 Flow FiO2 Ox Delivery Rate 05/11 1429 51 98 05/11 1232 61 100 05/11 1137 96.0 64 18 103/53 100 BIPAP 100% 05/11 1052 77 18 122/58 99 BIPAP 100% 05/11 1045 100 05/11 1006 96.1 78 22 154/68 100 BIPAP 100% 05/11 0930 96.4 80 22 174/78 100 BIPAP 05/11 0859 106 100 05/11 0857 180/62 05/11 0852 95.2 82 22 202/117 100 BIPAP 100% Intake & Output 05/11 1600 05/11 0800 05/11 0000 05/10 1600 05/10 0800 05/10 0000 Intake Total Output Total 75 Balance -75 Output, Urine 75 Patient 168 lb Weight Physical Exam: General Appearance: Resting quietly, no acute distress, vital signs stable Head: Normal Eyes:Normal Neck: normal inspection, JVP normal, carotid up strokes 1-2+ bilaterally with no bruits Respiratory: Bilateral rhonchi and crackles Cardiovascular: regular rate/rhythm, 1 to 2/6 systolic murmur Gastrointestinal: normal bowel sounds, soft Extremities: normal capillary refill, no edema Skin: intact, normal color, warm/dry Labs/Anupam Results: Laboratory Tests 05/11 05/11 05/11 1410 1150 1015 Blood Gas pH (7.35 - 7.45 PH) 7.27 *L pCO2 (35 - 45 TORR) 51 H pO2 (80 - 100 TORR) 155 H HCO3 (21 - 28 MEQ/L) 24 ABG O2 Sat (Measured) (>96.0 %) 98.0 P-50 (Temp Corrected) Y Carboxyhemoglobin (1.5 - 5.0 %) 1.1 L O2 Concentration % 100 Temperature (97.0 - 100.0 FARH) 96.1 L Respiration Rate (BPM) 22 O2 Delivery Method BIPAP Vent Mode ST Expiratory Pressure (CM H2O P) 6 Inspiratory Pressure (CM H2O P) 18 Coagulation APTT Cancelled Hematology CBC w Diff Pending WBC Pending RBC Pending Hgb Pending Hct Pending MCV Pending MCH Pending RDW Pending Plt Count Pending MPV Pending PUBS MCHC Pending Miscellaneous Phlebotomy Draw Site LEFT RADIAL 05/11 05/11 0850 0843 Chemistry Sodium (137 - 145 mmol/L) 141 Potassium (3.5 - 5.1 mmol/L) 3.7 Chloride (98 - 107 mmol/L) 103 Carbon Dioxide (22 - 30 mmol/L) 24 Anion Gap (5 - 16) 15 BUN (7 - 17 mg/dL) 21 H Creatinine (0.5 - 1.0 mg/dL) 3.2 H Estimated GFR (>60 ml/min) 15 L BUN/Creatinine Ratio (7 - 25 %) 6.6 L Glucose (65 - 99 mg/dL) 312 H Lactic Acid (0.7 - 2.1 mmol/L) 2.6 H Calcium (8.4 - 10.2 mg/dL) 7.8 L Total Bilirubin (0.2 - 1.3 mg/dL) 0.5 AST (14 - 36 U/L) 60 H ALT (9 - 52 U/L) 43 Alkaline Phosphatase (<127 U/L) 178 H Troponin I (< 0.11 ng/ml) 0.02 Total Protein (6.3 - 8.2 g/dL) 6.4 Albumin (3.5 - 5.0 g/dL) 3.6 Globulin (1.9 - 4.2 gm/dL) 2.8 Albumin/Globulin Ratio (1.1 - 2.2 %) 1.3 Hematology CBC w Diff NO MAN DIFF REQ WBC (4.8 - 10.8 /CUMM) 15.3 H RBC (4.20 - 5.40 /CUMM) 2.34 L Hgb (12.0 - 16.0 G/DL) 7.2 *L Hct (37 - 47 %) 22.4 L MCV (81.0 - 99.0 FL) 96.0 MCH (27.0 - 31.0 PG) 30.8 RDW (11.5 - 14.5 %) 17.4 H Plt Count (130 - 400 /CUMM) 447 H MPV (7.4 - 10.4 FL) 8.4 Gran % (42.2 - 75.2 %) 76.7 H Lymphocytes % (20.5 - 51.1 %) 17.4 L Monocytes % (1.7 - 9.3 %) 3.1 Eosinophils % (0 - 5 %) 2.4 Basophils % (0.0 - 2.0 %) 0.4 Absolute Granulocytes (1.4 - 6.5 /CUMM) 11.8 H Absolute Lymphocytes (1.2 - 3.4 /CUMM) 2.7 Absolute Monocytes (0.10 - 0.60 /CUMM) 0.5 Absolute Eosinophils (0.0 - 0.7 /CUMM) 0.4 Absolute Basophils (0.0 - 0.2 /CUMM) 0.1 PUBS MCHC (33.0 - 37.0 G/DL) 32.0 L Toxicology Urine Opiates Screen (>2000 NG/ML) < 100.00 Methadone Screen (>300 NG/ML) < 40 Barbiturate Screen (>200 NG/ML) < 60 Ur Phencyclidine Scrn (>25 NG/ML) < 6.00 Amphetamines Screen (>1000 NG/ML) < 100 U Benzodiazepines Scrn (>200 NG/ML) < 85 Urine Cocaine Screen (>300 NG/ML) < 50 Urine Cannabis Screen (>50 NG/ML) < 5.00 Urines Urinalysis LIGHT H Urine Color (YEL,AMB,STR) YEL Urine Clarity (CLEAR) CLEAR Urine pH (5.0 - 8.0) 7.5 Ur Specific [place] (1.001 - 1.035) 1.020 Urine Protein (NEG,<30 MG/DL) >=300 H Urine Ketones (NEG) NEG Urine Nitrite (NEG) NEG Urine Bilirubin (NEG) NEG Urine Urobilinogen (0.1 - 1.0 EU/dl) 0.2 Ur Leukocyte Esterase (NEG) NEG Ur Microscopic SEDIMENT EXAMINED Urine RBC (0 - 5 /HPF) 1-3 Urine WBC (0 - 2 /HPF) 1-3 H Ur Epithelial Cells (NONE,FEW) RARE Urine Mucus (FEW,NONE) RARE Urine Hemoglobin (NEG) TRACE-LYSED Urine Glucose (N MG/DL) 100 H 05/11 0842 Coagulation PT (9.4 - 12.5 SEC) 24.0 H INR (0.90 - 1.19) 2.30 H APTT (25 - 37 SEC) 37 Diagnostic Data CXR Results FINDINGS: Cardiac mediastinal silhouette borderline enlarged. Calcification of aorta are noted. Lungs bilaterally symmetrically expanded with diffuse fluffy perihilar parenchymal opacities. No pleural effusion or pneumothorax. Multilevel vertebral spondylosis. Gaseous distention of stomach in the left upper quadrant. IMPRESSION: Bilateral diffuse alveolar opacities are seen. Findings may represent ARDS in the clinical setting provided. Diffuse pulmonary edema or diffuse pneumonia can also be considered in the differential. Clinical correlation requested. Assessment/Plan Assessment/Plan Assessment: 1. Acute hypoxic/hypercapnic respiratory failure-at the present time, the etiology remains unclear. It is possible this is related to volume overload, however, other causes of congestive heart failure such as ischemia, valvular disease, etc. remain to be excluded. In addition, other issues such as pneumonia, ARDS, etc. also remain to be excluded. In addition, high output failure related to marked anemia is also a possibility 2. Transient bradycardia-reportedly, the patient had transient sinus bradycardia at the time of the initial event. I suspect this was related to the underlying respiratory issues. She has had no further evidence of bradycardia. 3. Ventricular ectopy-rare ventricular ectopy noted on the monitor at the present time, continue to monitor 4. End-stage renal disease on hemodialysis 5. Chronic anemia 6. Malfunctioning AV graft Recommendations: -Continue current management as per the critical care team -Check serial troponins -ECG later today and again in the morning -Keep the patient on environmental scientist -Monitor potassium, magnesium, etc. -Echocardiogram pending -In view of the patient's marked anemia with a hemoglobin of 6 and a hematocrit of 19, it would likely be worthwhile to consider transfusion. However, in view of the patient's volume status, renal failure, etc. this will need to be discussed in detail with nephrology, with plans for fluid management as per nephrology service. -Avoid any rate lowering medications for now. Consult Acknowledgment - Thank you for your consult request.
[2016-05-11 15:03] LABS: HEMATOCRIT 19.1 % (37-47)
[2016-05-11 16:00] VITALS: BP 122/50
--- NOTE | 2016-05-11 16:02 | Admission Certification ---
Admission Certification Certification Statement - As attending physician, I certify that at the time of - admission, based on clinical presentation, severity of - symptoms, need for further diagnostic testing and - therapeutic interventions, and risk of adverse outcomes - without in-hospital treatment, in my clinical assessment, - this patient requires an acute hospital stay for a minimum - of two nights or longer. I have also considered psychsocial - factors such as support system, advanced age, financial - issues, cognitive issues, and failed out-patient treatments, - past re-admission history, safety of patient, and lack of - compliance as applicable. Specific rationale supporting this admission is: Acute respiratory failure, ?ARDS, pulmonary overload, will need urgent dialysis.
[2016-05-11 17:56] LABS: PT 25.5 SEC (9.4-12.5); PTT 35 SEC (25-37)
[2016-05-12] VITALS: BP 159/70
--- NOTE | 2016-05-12 01:57 | NUR ---
REC'D PT @2300. PT A/OX3. ON THE BIPAP W/FIO2 50%. POX 100%, LS CLEAR THROUGHOUT. EKG DONE, LABS DRAWN/SENT & BS 61. PT HAS NOT EATEN SINCE ADMITTED TO THE ICU. INFORMED DR. SILVA RE. PT'S STATUS. RECHECK BS IN 1HR. COMPLETED HER DIALYSIS IN THE EVENINGS 2L TOOK OUT [facility]. REC'D 2U PRBC ON EVENINGS. SB/SR ON THE MONITOR HR 50-60'S, DID WILFRED DOWN LOW 46. NO CP/GEN PAIN. FC INSITU POOR U/O. CALLED RT ED TO ADJUST THE BIPAP. 0100 S/B RT ED. NO ABG ORDERED. TOOK HER OFF THE BIPAP & PLACED HER ON 3LNC POX 99%, LS CLEAR & DIMINISHED AT THE BASES. RECHECK BS 65. PT'S NPO & INFORMED DR. SILVA RE. BS RESULTS. WILL INFORMED DR. VILLALOBOS RE. NPO STATUS. PT'S INFORMED MYSELF/RN RE. NO CARDIAC CATH PER HER THEATER PROJECTIONIST DR. DIEOG FROM [facility]. INFORMED DR. SILVA RE. PT CONCERNS. [address] TO DR. VILLALOBOS WANTS PT NPO BUT TO GIVE AN AMP OF D50. SEE EMAR. CONT TO MONITOR.
--- NOTE | 2016-05-12 01:58 | Event Note ---
Event Note Event Note: Third set of troponins had trended up to 2.69. Patient was seen and examined at bedside. Vitals were normal. She denied chest pain, palpitations or shortness of breath. EKG showed no acute changes. Patient was kept NPO in case of possible cardiac cath. Will continue to trend EKG and troponins. Dr. Chaudhary was made aware and is in agreement with the plan.
--- NOTE | 2016-05-12 03:15 | NUR ---
BS 160. INFORMED DR. SILVA. NO FURTHER INTERVENTION. CONT TO MONITOR.
[2016-05-12 06:52] LABS: ABSOLUTE BASOPHIL COUNT 0 /CUMM (0.0-0.2); ABSOLUTE EOSINOPHIL COUNT 0.1 /CUMM (0.0-0.7); ABSOLUTE GRANULOCYTE CT 8.4 /CUMM (1.4-6.5); ABSOLUTE LYMPH COUNT 1.3 /CUMM (1.2-3.4); ABSOLUTE MONOCYTE COUNT 0.9 /CUMM (0.10-0.60); BASOPHIL % 0.2 % (0.0-2.0); EOSINOPHIL % 1.2 % (0-5); GRANULOCYTE % 78.3 % (42.2-75.2); MEAN CORPUSCULAR HGB 29.7 PG (27.0-31.0); MEAN CORPUSCULAR HGB CONC 32.4 G/DL (33.0-37.0); MEAN CORPUSCULAR VOLUME 91.6 FL (81.0-99.0); MEAN PLATELET VOLUME 8.1 FL (7.4-10.4); PLATELET COUNT 295 /CUMM (130-400); RBC DISTRIBUTION WIDTH 18.3 % (11.5-14.5); WHITE BLOOD CELL COUNT 10.7 /CUMM (4.8-10.8)
[2016-05-12 06:57] LABS: RED BLOOD CELL CT 2.91 /CUMM (4.20-5.40)
[2016-05-12 06:58] LABS: HEMATOCRIT 26.6 % (37-47)
[2016-05-12 06:59] LABS: PT 24.2 SEC (9.4-12.5)
--- NOTE | 2016-05-12 07:55 | NUR ---
[address] EVERETT HOLD INSULIN FOR NOW. PT REMAINS NPO. NO C/O PAIN VOICED.
[2016-05-12 08:00] VITALS: BP 160/58
--- NOTE | 2016-05-12 08:37 | PN- Resident CRCU ---
Subjective HPI/CRCU Issues: Patient was seen and examined, she is sitting on chair looks comfortable. She has no current complaint except left leg muscle spasm that she gets mostly after dialysis. Patient denies chest pain, palpitation, nausea, vomiting, or abdominal pain. Patient reported difficulty sleeping yesterday and would like something to help her sleep. Objective Vital Signs & I&O Last 8 Hrs of Vitals and I&O: Tmax: 98.9 BP highest 144/45 otherwise was within normal limits HR: 74 Inputs:1245 Outputs:2105 Exam General Appearance: well developed/nourished, no apparent distress, alert, awake , comfortable Head: atraumatic, normal appearance Neck: normal inspection Respiratory: decreased air entry over lung bilaterally Cardiovascular: regular rate/rhythm Gastrointestinal: soft, non-tender Extremities: normal inspection, no edema Current Medications: Current Medications Sig/Su Start time Last Medication Dose Route Stop Time Status Admin Acetaminophen 650 MG Q6P PRN 05/11 1930 AC PO Acetaminophen 1,000 MG Q6P PRN 05/11 1930 AC IV Amlodipine Besylate 10 MG DAILY 05/12 1000 AC PO Azithromycin 500 MG ONCE ONE 05/11 1245 DC 05/11 Dextrose/Water 250 ML IV 05/11 1344 1549 Calcium Acetate 667 MG WM 05/11 1700 AC 05/12 PO 0804 Ceftazidime 1,000 MG DAILY 05/11 1300 AC 05/11 IV 1548 Ceftazidime 2,000 MG DAILY 05/11 1230 CAN IV Dextrose 25 GM ONCE ONE 05/12 0130 DC 05/12 IV 05/12 0131 0200 Epoetin Amanuel 10,000 UNIT .WITH DIALYSIS 05/11 2045 AC IV Ergocalciferol 50,000 IU ONCE A WEEK 05/18 1000 AC PO Furosemide 40 MG DAILY 05/12 1000 AC PO Heparin Sodium 0 .STK-MED ONE 05/11 183 DC (Porcine) IV Hydralazine HCl 50 MG TID 05/11 2200 AC 05/11 PO 2320 Insulin Human Regular 0 Q6 05/11 1324 AC 05/11 SC 1415 Lidocaine 0 .STK-MED ONE 05/11 1835 DC .ROUTE Lisinopril 40 MG DAILY 05/12 1000 AC PO Lorazepam 0 .STK-MED ONE 05/11 1023 DC .ROUTE Lorazepam 0.25 MG ONCE ONE 05/11 1015 DC 05/11 IV 05/11 1016 1023 Morphine Sulfate 1 MG Q6-PRN PRN 05/11 1930 AC IV Multivitamins 1 TAB DAILY 05/12 1000 AC PO Non-Formulary 0 SEE ADMIN CRITERIA 05/11 1645 CAN Medication ANY Ramelteon 8 MG AT BEDTIME PRN 05/11 1815 AC PO Sertraline HCl 50 MG DAILY 05/12 1000 AC PO Vancomycin HCl 1,000 MG ONCE ONE 05/11 1245 DC 05/11 Dextrose/Water 250 ML IV 05/11 1344 2128 Impression/Plan Impression/Problem List Impression: Respiratory * Patient will be supplied with IA oxygen saturation goal > 92% * We ordered chest x-ray this morning, based on the results we may order chest CT ID * We will continue ceftazadime 1000 mg IV daily * Patient received 1 dose of vancomycin and azithromycin. * swab for influenza * We will follow pancx results, negative so far * We will repeat CBC to watch out for any elevation white blood cells CVS Patient was found to have systolic murmur, she stated that the murmur present since she was child. Patient had high troponin up to 2.69 yesterday, however the next level was 2.35. * We will trend her troponin and couple it with EKG. 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 Patient currently has a clots on her dialysis to on the right arm. A new tube was placed. Today INR is 2.32. Patient hemoglobin was 6.1 yesterday increased to 8.6 post blood. transfusion. * We will repeat CBC daily * We will consult vascular surgery. Metabolic Patient has end-stage renal disease, she went for dialysis yesterday. Yesterday input was 1245 and output was 2105. She has a clots that formed in her dialysis AV graft. Yesterday INR implanted a new access line. According to the patient she still need to do 7 dialysis before she gets the renal transplant on the first week of May. * We will keep monitor ins/outs * We will repeat creatinine, and when necessary daily * We will follow nephrology recommendation Neuro Patient was altered yesterday. Toxicology was done and was negative. Today she is awake, alert and oriented X3 Endocrine Patient is complaining of feeling cold all the time, she think that's may be related to her anemia. * We will order TSH level DVT prophylaxis patient is on warfarin Diet renal dialysis diet CODE STATUS full code Problem List: 1. Respiratory failure 2. Anemia 3. End stage kidney disease Pain Ratin Tomorrow's Labs & Rationales: CBC, ICU bundle Plan DVT/Prophylaxis: mechanical, pharmacological
--- NOTE | 2016-05-12 10:20 | PN- Pulmonary ---
Subjective HPI/Critical Care Issues: Patient is awake alert comfortable without shortness of breath status post dialysis Objective Current Medications: Current Medications Sig/Su Start time Last Medication Dose Route Stop Time Status Admin Acetaminophen 650 MG Q6P PRN 05/11 193 AC PO Acetaminophen 1,000 MG Q6P PRN 05/11 1930 AC IV Amlodipine Besylate 10 MG DAILY 05/12 1000 AC 05/12 PO 0948 Azithromycin 500 MG ONCE ONE 05/11 1245 DC 05/11 Dextrose/Water 250 ML IV 05/11 1344 1549 Calcium Acetate 667 MG WM 05/11 1700 AC 05/12 PO 0804 Ceftazidime 1,000 MG DAILY 05/11 1300 AC 05/12 IV 0947 Ceftazidime 2,000 MG DAILY 05/11 1230 CAN IV Dextrose 25 GM ONCE ONE 05/12 0130 DC 05/12 IV 05/12 0131 0200 Epoetin Amanuel 10,000 UNIT .WITH DIALYSIS 05/11 2044 AC IV Ergocalciferol 50,000 IU ONCE A WEEK 05/18 1000 AC PO Furosemide 40 MG DAILY 05/12 1000 AC 05/12 PO 0948 Heparin Sodium 0 .STK-MED ONE 05/11 183 DC (Porcine) IV Hydralazine HCl 50 MG TID 05/11 2200 AC 05/12 PO 0947 Insulin Human Regular 0 Q6 05/11 1324 AC 05/11 SC 1415 Lidocaine 0 .STK-MED ONE 05/11 1835 DC .ROUTE Lisinopril 40 MG DAILY 05/12 1000 AC 05/12 PO 0948 Lorazepam 0 .STK-MED ONE 05/11 1023 DC .ROUTE Morphine Sulfate 1 MG Q6-PRN PRN 05/11 1929 AC IV Multivitamins 1 TAB DAILY 05/12 1000 AC 05/12 PO 0948 Non-Formulary 0 SEE ADMIN CRITERIA 05/11 1645 CAN Medication ANY Ramelteon 8 MG AT BEDTIME PRN 05/11 1815 AC PO Sertraline HCl 50 MG DAILY 05/12 1000 AC 05/12 PO 0949 Vancomycin HCl 1,000 MG ONCE ONE 05/11 1245 DC 05/11 Dextrose/Water 250 ML IV 05/11 1344 2128 Vital Signs & I&O Last 24 Hrs of Vitals and I&O: Vital Signs Date Time Temp Pulse Resp B/P Pulse O2 O2 Flow FiO2 Ox Delivery Rate 05/12 0948 72 142/70 05/12 0948 78 142/70 05/12 0947 74 142/73 05/12 0800 97.8 74 21 160/58 97 Nasal 1.0L Cannula 05/12 0800 97 Nasal 1.0L Cannula 05/12 0400 99 Nasal 3.0L Cannula 05/12 0103 99 Nasal 3.0L Cannula 05/12 0101 58 100 05/12 0000 97.8 56 27 159/70 100 BIPAP 50% 05/12 0000 100 BIPAP 50% 05/11 2320 58 159/70 05/11 2201 53 99 05/11 2000 100 BIPAP 50% 05/11 1900 60 99 05/11 1600 99 BIPAP 50% 05/11 1600 97.6 64 26 122/50 99 BIPAP 50% 05/11 1546 57 99 05/11 1429 51 98 05/11 1300 97 BIPAP 50% 05/11 1232 61 100 05/11 1225 96.4 51 28 130/52 97 BIPAP 50% 05/11 1137 96.0 64 18 103/53 100 BIPAP 100% 05/11 1052 77 18 122/58 99 BIPAP 100% 05/11 1045 100 Intake & Output 05/12 1600 05/12 0800 05/12 0000 Intake Total 25 1200 Output Total 40 2030 Balance -15 -830 Intake, Blood 700 Product Intake, IV 0 500 Intake, Oral 25 0 Number 0 0 Bowel Movements Output, 2000 Dialysate Output, Urine 40 30 Oxygen saturation 197% exam for chest shows clear lung [place] cardiac exam showed a regular S1 and S2 without murmurs Impression/Plan Impression/Plan Impression/Plan: 66-year-old woman presented with altered mental status and respiratory failure likely result of profound anemia possible high output congestive heart failure resolved following transfusion and dialysis Recommendations: Taper O2 and monitor O2 sats repeat chest x-ray follow-up cultures, further evaluation for profound anemia per primary care team
--- NOTE | 2016-05-12 11:08 | PN- Att Addend ---
Attending Addendum Attending Brief Note Patient seen and examined. Sitting comfortably in chair and having breakfast. Denies any chest pain, shortness of breath, or any other complaints. Had hemodialysis yesterday following which she started feeling better. Rise in troponin overnight noted. Kayla Chaudhary MD was informed about the same. Troponins are trending down, and patient is symptom-free. Has bilateral crackles on exam Vascular has been consulted to follow up on the thrombosed hemodialysis fistula. 1. Acute respiratory failure-most likely secondary to fluid overload/high- output failure. 2. Chronic anemia status post 2 units blood transfusion 3. End-stage renal disease on hemodialysis 4. Dialysis fistula thrombosis 5. Elevated troponins Recommendations 1. Follow-up cultures. Please repeat a chest x-ray to make sure that it is oral fluid that caused his symptoms and there was nothing else going on. As according to the patient and the family she was feeling weak and lousy even prior to this episode, ? Could be secondary to her anemia. If the chest x-ray is negative and the cultures remained negative can discontinue the antibiotics. 2. She is appropriately responded to 2 units of blood transfusion. Guaiac stools to make sure she is not bleeding. Follow up with renal. 3. Patient's troponins are trending down and she is symptom free, ? Demand ischemia. Follow-up with Dr. Chaudhary for the same. 4. Follow-up with vascular for further management of the thrombosed fistula.
--- NOTE | 2016-05-12 11:16 | Event Note ---
Event Note Event Note: Information about her AV fistula Fistula was placed in January/2014 by Patient has been having recurrent thrombosis in the past which was attributed to low flow. She had clot extraction in the past done by [facility] She was started on Warfarin in for the same problem and since then she has been fine with out issues of clotting. stated that they have an appoiontment to see Dr. Paredes tomorrow. She has KENAN cath placed in right IJ by IR yesterday for emergent dialysis. Discussed with the [facility] vascular surgeon who will see the patient today . We will continue her warfarin to maintain an INR between 2-3.
--- NOTE | 2016-05-12 11:27 | NUR ---
@0800-PT ALERT AND ORIENTED, CALM AND COOP. VSS. NOTED TO BE ON 1LNC. LUNGS CLEAR, DIM TO BASES. DENIES SOB. CXR ORD FOR THIS AM. TO RECIEVE LASIX 40MG DAILY PO WITH AM MEDS. NSR HR 70S. BP 160/58, WILL RECIEVE PO NORVASC, HYDRALAZINE AND LISINOPRIL WITH AM MEDS. ECHO AT BEDSIDE. 3RD TROP 2.35, PREV TROP 2.69. 4TH TROP ORD FOR 1220. H/H 8.6, 26.6-S/P 2 UNITS PRBC WITH DIALYSIS 05/11/16. PT STARTED ON RENAL DIALYSIS DIET-[facility]. WILL GUIAC ANY STOOL-NO BM SINCE 05/10/16. ABD SOFT, +BS. DOMINGUEZ CATH IN PLACE WITH CLEAR YELLOW URINE 20-30ML HOURLY. SKIN INTACT. R FELICIA FISTULA NOTED-FAINT BRUIT AUSCULTATED, NO THRILL NOTED. CONT TO MONITOR CLOSELY, CALL WORKMAN WITHIN REACH.
--- NOTE | 2016-05-12 11:32 | NUR ---
@0900-PT ASSISTED OOB TO CHAIR, [facility]. PREV C/O LE CRAMPS HAS RESOLVED AT THIS TIME-HOUSESTAFF AWARE. DENIES CP/SOB. FAMILY AT BEDSIDE. @1100-O2 TITRATED TO RA PER RT. O2SAT 97%.
--- NOTE | 2016-05-12 12:30 | NUR ---
@1200-MANUAL BP TAKEN BY THIS RN. SYSTOLIC 190. UNABLE TO OBTAIN DIASTOLIC READING DUE TO CONT BEAT AUSCULTATED WHILE TAKING BP READING. REPORTED ABOVE TO HOUSESTAFF AND DR VILLALOBOS. PT ASYMPTOMATIC. CONT TO MONITOR.
--- NOTE | 2016-05-12 13:16 | RADIOLOGY REPORT ---
EXAMINATION: XR PORTABLE CHEST CLINICAL INFORMATION: Decreased air entry over both lungs. Presumptive diagnosis of pleural effusion/pneumonia. COMPARISON: Chest x-ray dated 05/11/2016. TECHNIQUE: AP semierect portable view of the chest was obtained. FINDINGS: A large bore right jugular central venous line is in place with tip in the deep SVC/cavoatrial junction. The cardiomediastinal silhouette is borderline normal in size. Calcification of the aortic arch is seen. Lungs bilaterally are symmetrically expanded and clear. Previously seen diffuse pulmonary opacities have resolved. No effusion or pneumothorax is seen. Multilevel vertebral spondylosis again seen. IMPRESSION: 1. Right jugular large bore central venous catheter is in place with tip in the deep SVC/cavoatrial junction. 2. Resolution of previously seen diffuse bilateral pulmonary opacities. 3. No focal pneumonia or evidence of pleural effusion.
--- NOTE | 2016-05-12 14:22 | PN- Cardiology ---
Subjective Subjective: The patient appears to be doing dramatically better today. She is sitting in the bedside chair. She denies any chest discomfort, shortness of breath, etc. Her blood pressure is mildly elevated. Objective Vital Signs and I&Os Vital Signs Date Time Temp Pulse Resp B/P Pulse O2 O2 Flow FiO2 Ox Delivery Rate 05/12 1200 97 Room Air 05/12 1152 96 Room Air 05/12 0948 72 142/70 05/12 0948 78 142/70 05/12 0947 74 142/73 05/12 0800 97.8 74 21 160/58 97 Nasal 1.0L Cannula 05/12 0800 97 Nasal 1.0L Cannula 05/12 0400 99 Nasal 3.0L Cannula 05/12 0103 99 Nasal 3.0L Cannula 05/12 0101 58 100 05/12 0000 97.8 56 27 159/70 100 BIPAP 50% 05/12 0000 100 BIPAP 50% 05/11 2320 58 159/70 05/11 2201 53 99 05/11 2000 100 BIPAP 50% 05/11 1900 60 99 05/11 1600 99 BIPAP 50% 05/11 1600 97.6 64 26 122/50 99 BIPAP 50% 05/11 1546 57 99 05/11 1429 51 98 Intake & Output 05/12 1600 05/12 0800 05/12 0000 05/11 1600 05/11 0800 05/11 0000 Intake Total 25 1200 20 Output Total 40 2030 110 Balance -15 -830 -90 Intake, Blood 700 Product Intake, IV 0 500 20 Intake, Oral 25 0 Number 0 0 0 Bowel Movements Output, 2000 Dialysate Output, Urine 40 30 110 Patient 162 lb Weight Physical Exam: General Appearance: Sitting come to believe the bedside chair, no acute distress , alert and oriented, vital signs stable. Head: Normal Eyes:Normal Neck: normal inspection, JVP normal, carotid up strokes 1-2+ bilaterally with no bruits Respiratory: Scattered rhonchi Cardiovascular: regular rate/rhythm, 1 to 2/6 systolic ejection murmur Gastrointestinal: normal bowel sounds, soft Extremities: normal capillary refill, no edema, nonfunctioning dialysis graft right arm Skin: intact, normal color, warm/dry Current Medications: Current Medications Sig/Su Start time Last Medication Dose Route Stop Time Status Admin Acetaminophen 650 MG Q6P PRN 05/11 193 AC PO Acetaminophen 1,000 MG Q6P PRN 05/11 1930 AC IV Amlodipine Besylate 10 MG DAILY 05/12 1000 AC 05/12 PO 0948 Calcium Acetate 667 MG WM 05/11 1700 AC 05/12 PO 1156 Ceftazidime 1,000 MG DAILY 05/11 1300 AC 05/12 IV 0947 Dextrose 25 GM ONCE ONE 05/12 0130 DC 05/12 IV 05/12 0131 0200 Diclofenac Sodium 1 CATALINA 4 TIMES/DAY 05/12 1400 AC TOP Epoetin Amanuel 10,000 UNIT .WITH DIALYSIS 05/11 2044 AC IV Ergocalciferol 50,000 IU ONCE A WEEK 05/18 1000 AC PO Furosemide 40 MG DAILY 05/12 1000 AC 05/12 PO 0948 Heparin Sodium 0 .STK-MED ONE 05/11 183 DC (Porcine) IV Hydralazine HCl 50 MG TID 05/11 2200 AC 05/12 PO 0947 Insulin Aspart 0 TIDAC 05/12 1200 AC 05/12 SC 1156 Insulin Human Regular 0 Q6 05/11 1324 DC 05/11 SC 1415 Lidocaine 0 .STK-MED ONE 05/11 183 DC .ROUTE Lisinopril 40 MG DAILY 05/12 1000 AC 05/12 PO 0948 Morphine Sulfate 1 MG Q6-PRN PRN 05/11 193 AC IV Multivitamins 1 TAB DAILY 05/12 1000 AC 05/12 PO 0948 Non-Formulary 0 SEE ADMIN CRITERIA 05/11 1645 CAN Medication ANY Ramelteon 8 MG AT BEDTIME PRN 05/11 1815 AC PO Sertraline HCl 50 MG DAILY 05/12 1000 AC 05/12 PO 0949 Warfarin Sodium 7.5 MG COUMADIN 1700 ONE 05/12 1700 AC PO 05/12 1701 Results Last 48 Hrs of Labs/Mics: Laboratory Tests 05/12/16 1220: Troponin I Cancelled 05/12/16 0604: Anion Gap 9, Estimated GFR 14 L, Glucose 104 H, Calcium 8.8, Phosphorus 4.8 H , Magnesium 1.8, Total Bilirubin 0.8, AST 29, ALT 33, Troponin I 2.35 *H, Albumin 3.2 L, TSH 0.398, PT 24.2 H, INR 2.32 H, CBC w Diff NO MAN DIFF REQ, RBC 2.91 L, MCV 91.6, MCH 29.7, RDW 18.3 H, MPV 8.1, Gran % 78.3 H, Lymphocytes % 11.8 L, Monocytes % 8.5, Eosinophils % 1.2, Basophils % 0.2, Absolute Granulocytes 8.4 H, Absolute Lymphocytes 1.3, Absolute Monocytes 0.9 H, Absolute Eosinophils 0.1, Absolute Basophils 0, PUBS MCHC 32.4 L 05/11/16 2342: Troponin I 2.69 *H 05/11/16 1710: Anion Gap 12, Estimated GFR 11 L, Glucose 174 H, Calcium 8.2 L, Phosphorus 7.0 H, Magnesium 1.9, Total Bilirubin 0.4, AST 34, ALT 43, Troponin I 1.75 *H, Albumin 3.1 L, PT 25.5 H, INR 2.45 H, APTT 35 05/11/16 1410: CBC w Diff MAN DIFF ORDERED, RBC 2.00 L, MCV 95.5, MCH 30.5, RDW 17.0 H, MPV 8.1, Gran % 94.1 H, Lymphocytes % 2.6 L, Monocytes % 3.3, Eosinophils % 0, Basophils % 0 L, Absolute Granulocytes 17.2 H, Absolute Lymphocytes 0.5 L, Absolute Monocytes 0.6, Absolute Eosinophils 0, Absolute Basophils 0, Hypochromic-Microcytic 1+, Poikilocytosis 1+, Anisocytosis 2+, PUBS MCHC 31.9 L 05/11/16 1150: APTT Cancelled 05/11/16 1015: pH 7.27 *L, pCO2 51 H, pO2 155 H, HCO3 24, ABG O2 Sat (Measured) 98.0, P-50 ( Temp Corrected) Y, Carboxyhemoglobin 1.1 L, O2 Concentration % 100, Temperature 96.1 L, Respiration Rate 22, O2 Delivery Method BIPAP, Vent Mode ST, Expiratory Pressure 6, Inspiratory Pressure 18, Phlebotomy Draw Site LEFT RADIAL 05/11/16 0850: Urine Opiates Screen < 100.00, Methadone Screen < 40, Barbiturate Screen < 60, Ur Phencyclidine Scrn < 6.00, Amphetamines Screen < 100, U Benzodiazepines Scrn < 85, Urine Cocaine Screen < 50, Urine Cannabis Screen < 5.00, Urinalysis LIGHT H, Urine Color YEL, Urine Clarity CLEAR, Urine pH 7.5, Ur Specific Riparius 1.020 , Urine Protein >=300 H, Urine Ketones NEG, Urine Nitrite NEG, Urine Bilirubin NEG, Urine Urobilinogen 0.2, Ur Leukocyte Esterase NEG, Ur Microscopic SEDIMENT EXAMINED, Urine RBC 1-3, Urine WBC 1-3 H, Ur Epithelial Cells RARE, Urine Mucus RARE, Urine Hemoglobin TRACE-LYSED, Urine Glucose 100 H 05/11/16 0843: Anion Gap 15, Estimated GFR 15 L, BUN/Creatinine Ratio 6.6 L, Glucose 312 H, Lactic Acid 2.6 H, Calcium 7.8 L, Total Bilirubin 0.5, AST 60 H, ALT 43, Alkaline Phosphatase 178 H, Troponin I 0.02, Total Protein 6.4, Albumin 3.6, Globulin 2.8, Albumin/Globulin Ratio 1.3, CBC w Diff NO MAN DIFF REQ, RBC 2.34 L, MCV 96.0, MCH 30.8, RDW 17.4 H, MPV 8.4, Gran % 76.7 H, Lymphocytes % 17.4 L, Monocytes % 3.1, Eosinophils % 2.4, Basophils % 0.4, Absolute Granulocytes 11.8 H, Absolute Lymphocytes 2.7, Absolute Monocytes 0.5, Absolute Eosinophils 0.4, Absolute Basophils 0.1, PUBS MCHC 32.0 L 05/11/16 0842: PT 24.0 H, INR 2.30 H, APTT 37 Assessment/Plan Assessment/Plan Assessment: 1. Acute hypoxic/hypercapnic respiratory failure-improved 2. Elevated troponin-the patient's troponin peaked at 2.69. There are no acute ECG changes noted, however, all of her ECGs here to show evidence of a possible old anteroseptal infarct. No ECGs for comparison available. In view of the patient's presentation, elevated troponin, ECG, and today's echocardiogram which shows evidence of a mid to distal area of hypokinesia in the anterior wall and septum, the findings are most consistent with a small non-ST elevation myocardial infarction. The patient's residual ejection fraction is normal. This may be related to underlying coronary disease. This may also be related to profound anemia, etc. The possibility of Takotsubo variant cannot be excluded. 2. Transient bradycardia-reportedly, the patient had transient sinus bradycardia at the time of the initial event. I suspect this was related to the underlying respiratory issues. She has had no further evidence of bradycardia. 3. Ventricular ectopy-rare ventricular ectopy noted on the monitor at the present time, continue to monitor 4. End-stage renal disease on hemodialysis 5. Acute on Chronic anemia 6. Nonfunctioning dialysis graft right arm 7. Mild aortic stenosis and mild mitral stenosis noted on echocardiogram Recommendations: -Keep patient on knitter mechanic -Continue as per nephrology -I discussed the situation in detail with the patient and her family. She has had a recent pre-transplant evaluation by her regular jewel corner brushing machine operator Dr. Tapia in [place]. According to the family, and nuclear stress test performed last month showed no significant abnormalities. All of her results are not available today. In view of the current events, it is likely that the renal transplant team may require further evaluation such as a cardiac catheterization. This can be further discussed tomorrow once the patient's primary jewel corner brushing machine operator, renal transplant physician, etc. are available. -At this point, if okay with nephrology, I would consider adding low-dose statin and aspirin 81 mg daily to the patient's regimen for now. -At some point, if tolerated, low dose beta carlene will also be useful. Continue telemetry? Yes
--- NOTE | 2016-05-12 14:53 | NUR ---
@1400-PT C/O RETURN OF MUSCLE CRAMPS TO BLE. REPORTED TO HOUSESTAFF, VOLTERAN GEL ORD AND ADMINISTERED ORD. PT ASSISTED TO COMF POSITION IN CHAIR. BP 180/60-PER HOUSESTAFF-AWAITING NEPHRO INPUT. CONT TO MONITOR CLOSELY.
--- NOTE | 2016-05-12 15:52 | INTERVENTIONAL RADIOLOGY RPT ---
RIGHT-SIDED NON TUNNELED DIALYSIS CATHETER PLACEMENT INTERVENTIONAL RADIOLOGIST: Deion Henderson M.D. CLINICAL INDICATION: Needs emergent dialysis ACCESS: Right internal jugular vein. GUIDANCE: Ultrasound and Fluoroscopy (15 seconds) CONSCIOUS SEDATION: No sedation required. A registered nurse monitored the patient and the patient's vital signs throughout the procedure. COMPLICATIONS: none CONTRAST: none INFORMED CONSENT: Informed consent was obtained from the patient's prior to the procedure. During this process, the procedure and potential alternatives were explained, along with the intended outcome and benefits. The risks of the procedure including the possibility of an unsuccessful procedure, as well as the risk of not doing the procedure were discussed. The patient's was given the opportunity to ask questions regarding the procedure and appeared competent to make decisions. A signed consent form documenting this discussion was placed in the medical record. A time out procedure was performed. DESCRIPTION: The right neck and chest wall were prepped and draped. Ultrasound was used to identify the the right internal jugular vein. The right internal jugular vein was confirmed to be patent. Real time imaging confirmed needle access into the right internal jugular vein. An image was saved for permanent recording in PACS. Under fluoroscopic guidance, a 0.018 guidewire was advanced into the right atrium. Fluoroscopic landmarks were utilized to calculate a tunnel length. The 0.018 guidewire was exchanged for a 0.035 inch guidewire. After serial dilatation, a 12 Bulgarian dialysis catheter was then placed into the right jugular vein [id number], and positioned with its tip in the mid-right atrium. The peel-away sheath was removed and the wings of the catheter were secured to the skin using 2-0 silk suture. The lumens of the Perma-Cath were flushed with normal saline. A sterile dressing was applied. IMPRESSION: Successful placement of a non tunneled dialysis catheter. The catheter is ready for use. This catheter may be converted to a perm catheter if the patient's INR decreases appropriately.
[2016-05-12 16:00] VITALS: BP 184/60
--- NOTE | 2016-05-12 16:27 | NUR ---
@1600-PT ASSISTED BACK TO BED FOR ULTRASOUND OF RUE. VSS. BP 160/50. AWAITING NEURONTIN 1 X DOSE FROM PHARMACY. CONT TO MONITOR, CALL WORKMAN WITHIN REACH.
--- NOTE | 2016-05-12 17:07 | ULTRASOUND REPORT ---
EXAMINATION: US TRIPLEX UPPER EXTREMITY, RIGHT CLINICAL INFORMATION: History of right AV graft. COMPARISON: None. TECHNIQUE: Color-flow triplex imaging with spectral analysis and compression Doppler were performed on the right upper extremity. FINDINGS: Evaluation is significantly limited secondary to overlying bandages. Evaluation of the internal jugular vein is specifically limited secondary to indwelling triple-lumen catheter. Normal venous waveforms and [id number] flow are obtained within the right upper, mid and lower subclavian vein. Evaluation of the upper and lower portion of the right axillary vein demonstrates xszc-co-[id number] flow and a normal venous waveform. There is relatively decreased flow within the lower right axillary vein. An AV graft is identified in the region of the upper brachial vein. The vein is not compressible. Cfjc-xn-wpsw flow is identified between the axillary vein anastomosis in the proximal graft. The waveform appears within normal limits. There are low level internal echoes on evaluation of the mid graft. Only minimal flow can be obtained. The distal graft cannot be assessed secondary to overlying bandages. The brachial vein demonstrates normal compressibility and jvmp-mo-xmlu flow. The lower basilic vein also demonstrates normal compressibility. Normal wave form is obtained within the basilic vein. The cephalic vein is not demonstrated. IMPRESSION: 1. Technically challenging examination secondary to overlying bandages. Likely at least partial occlusion of the AV graft located in the right upper arm. 2. The veins superior to the graft demonstrate normal [id number] flow and venous waveforms. 3. The cephalic vein is not demonstrated on the current study.
--- NOTE | 2016-05-12 21:03 | ECHOCARDIOGRAM REPORT ---
YASEMIN SZYMANSKI Age: 66 : 1950 Gender: F Exam Date: 05/12/2016 08:14 Exam Location: [facility] Ht (in): 67 Wt (lb): 162 BSA: 1.87 BP: 159 / 70 Ordering Physician: RANJEET GAY MD Referring Physician: Kayla Chaudhary MD Technologist: Dominga Chahal [facility] Room Number: 101 Indications: SHORTNESS OF BREATH Rhythm: Sinus Technical Quality: Fair, Technically difficult study FINDINGS Left Ventricle Normal size left ventricle. Borderline normal left ventricular ejection fraction estimated at 50-55%. Hypokinetic septum. Hypokinetic anterior wall. Right Ventricle Normal right ventricular size and function. Right Atrium Normal right atrial size. Left Atrium Mild to moderate left atrial dilatation. Mitral Valve Mild thickening/calcification of the anterior mitral valve leaflet. Severe mitral annular calcification. Mild mitral stenosis. Mild mitral regurgitation. Aortic Valve Trileaflet aortic valve. Diffuse thickening of the aortic valve cusps with reduced excursion. Mild aortic stenosis. Trace to mild aortic regurgitation. Tricuspid Valve Tricuspid valve not well visualized, grossly normal. Pulmonic Valve Pulmonic valve not well visualized. Pericardium No pericardial effusion. Great Vessels Aortic root and proximal ascending aorta not well visualized, grossly normal. CONCLUSIONS 1. This was a technically difficult examination. 2. Fibrocalcific degeneration is present in the aortic valve with evidence of mild valvular stenosis (PG 35 mmHg; MG 20 mmHg; DEIRDRE 2.0 cm2) and minimal to mild aortic insufficiency. 3. Thickening and calcification of the mitral leaflets is present extending into the chordal structures with moderate to severe anular calcification and mild mitral stenosis ( PDG 35 mmHg; MDG 18 mmHg: MVA 1.8 cm2 ), mild mitral insufficiency and mild to moderate left atrial atrial enlargement 4. There is no significant pericardial fluid present. 5. The left ventricuar chamber size appears normal. THere is hypokinesia with focal dyskinesia of the mid to distal septum with hypokinesia of the mid to distal anterior wall and an ejection fraction of about 50%. 6. The right heart structures are grossly normal. THe RV systolic pressure could not be accurately assessed. Kayla Chaudhary M.D. (Electronically Signed) Final Date: 12 May 2016 21:02 MEASUREMENTS (Male / Female) Normal Values 2D ECHO LV Diastolic Diameter PLAX 4.9 cm 4.2 - 5.9 / 3.9 - 5.3 cm LV Systolic Diameter PLAX 2.7 cm 2.1 - 4.0 cm LV Fractional Shortening PLAX 44.9 % 25 - 46 % LV Ejection Fraction 2D Teich 76.1 % IVS Diastolic Thickness 1.1 cm LVPW Diastolic Thickness 1.1 cm LV Relative Wall Thickness 0.4 RV Internal Dim ED PLAX 2.8 cm 1.9 - 3.8 cm LVOT Diameter 1.9 cm Aortic Root Diameter 2.5 cm LA Systolic Diameter LX 3.9 cm 3.0 - 4.0 / 2.7 - 3.8 cm LA Volume 46.0 cm 18 - 58 / 22 - 52 cm Ascending Aorta Diameter 2.7 cm DOPPLER AV Peak Velocity 295.0 cm/s AV Peak Gradient 34.8 mmHg AV Mean Velocity 210.0 cm/s AV Mean Gradient 20.0 mmHg AV Velocity Time Integral 67.3 cm LVOT Peak Velocity 209.0 cm/s LVOT Peak Gradient 17.5 mmHg LVOT Mean Velocity 153.0 cm/s LVOT Mean Gradient 10.0 mmHg LVOT Velocity Time Integral 48.6 cm LVOT Stroke Volume 137.8 cm AV Area Cont Eq vti 2.0 cm AV Area Cont Eq pk 2.0 cm MV Peak Velocity 284.7 cm/s MV Peak Gradient 32.4 mmHg MV Mean Velocity 183.0 cm/s MV Mean Gradient 15.3 mmHg Mitral E Point Velocity 224.0 cm/s Mitral A Point Velocity 214.0 cm/s Mitral E to A Ratio 1.0 MV PHT Velocity 290.7 cm/s MV Deceleration [place] 1235.3 cm/s MV Pressure Half Time 70.6 ms MV Area PHT 3.1 cm MV Deceleration Time 256.0 ms PV Peak Velocity 149.0 cm/s PV Peak Gradient 8.9 mmHg PV Mean Velocity 93.8 cm/s PV Mean Gradient 4.0 mmHg PV Velocity Time Integral 33.5 cm LV E' Lateral Velocity 5.1 cm/s Mitral E to LV E' Lateral Ratio 43.5 LV E' Septal Velocity 7.0 cm/s Mitral E to LV E' Septal Ratio 32.2
[2016-05-13] VITALS: BP 141/58
[2016-05-13 05:53] LABS: ABSOLUTE BASOPHIL COUNT 0.1 /CUMM (0.0-0.2); ABSOLUTE EOSINOPHIL COUNT 0.3 /CUMM (0.0-0.7); ABSOLUTE GRANULOCYTE CT 6.1 /CUMM (1.4-6.5); ABSOLUTE LYMPH COUNT 1.7 /CUMM (1.2-3.4); BASOPHIL % 0.6 % (0.0-2.0); EOSINOPHIL % 2.9 % (0-5); GRANULOCYTE % 67.1 % (42.2-75.2); HEMATOCRIT 28.2 % (37-47); MEAN CORPUSCULAR HGB 29.7 PG (27.0-31.0); MEAN CORPUSCULAR HGB CONC 32.8 G/DL (33.0-37.0); MEAN CORPUSCULAR VOLUME 90.5 FL (81.0-99.0); MEAN PLATELET VOLUME 8.3 FL (7.4-10.4); PLATELET COUNT 321 /CUMM (130-400); RED BLOOD CELL CT 3.12 /CUMM (4.20-5.40); WHITE BLOOD CELL COUNT 9.1 /CUMM (4.8-10.8)
[2016-05-13 08:00] VITALS: BP 170/80
--- NOTE | 2016-05-13 08:01 | NUR ---
0500 PT'S BP/MANUAL 180/60 & AUTO/ 174/87. INFORMED DR. SILVA. RECHECK IN 1 HOUR. 0630 SBP STILL READING 180/60. INFORMED DR. EVERETT. V/O TO GIVE HYDRALAZINE EARLY. SEE EMAR 0700 168/[address] PEREIRA INFORMED THAT PT NEED TO BE NPO FOR A POSSIBLE FISTULOGRAM TODAY. INFORMED DR. MAXWELL.
--- NOTE | 2016-05-13 09:38 | PN- CRCU ---
Subjective HPI/Critical Care Issues: pt seen and examined hemodynamically stable hemoglobin stabilized comfortable no blood gas since 11/08 Objective Current Medications: Current Medications Sig/Su Start time Last Medication Dose Route Stop Time Status Admin Acetaminophen 650 MG Q6P PRN 05/11 1929 AC PO Acetaminophen 1,000 MG Q6P PRN 05/11 193 AC IV Amlodipine Besylate 10 MG DAILY 05/12 1000 AC 05/13 PO 0917 Calcium Acetate 667 MG WM 05/11 1700 AC 05/12 PO 1709 Ceftazidime 1,000 MG DAILY 05/11 1300 DC 05/12 IV 0947 Diclofenac Sodium 1 CATALINA 4 TIMES/DAY 05/12 1400 AC 05/13 TOP 0918 Epoetin Amanuel 10,000 UNIT .WITH DIALYSIS 05/11 2044 AC IV Ergocalciferol 50,000 IU ONCE A WEEK 05/18 1000 AC PO Furosemide 40 MG DAILY 05/12 1000 DC 05/12 PO 0948 Gabapentin 100 MG ONCE ONE 05/12 1530 DC 05/12 PO 05/12 1531 1708 Hydralazine HCl 50 MG TID 05/11 2200 AC 05/13 PO 0653 Insulin Aspart 1 UNITS ONCE ONE 05/12 2315 DC 05/12 SC 05/12 2316 2324 Insulin Aspart 0 TIDAC 05/12 1200 05/12 SC 1707 Insulin Human Regular 0 Q6 05/11 1324 DE 05/11 SC 1415 Lisinopril 40 MG DAILY 05/12 1000 AC 05/13 PO 0917 Morphine Sulfate 1 MG Q6-PRN PRN 05/11 193 AC IV Multivitamins 1 TAB DAILY 05/12 1000 AC 05/13 PO 0917 Ramelteon 8 MG .STK-MED ONE 05/12 2220 DC PO 05/12 2221 Ramelteon 8 MG AT BEDTIME PRN 05/11 1815 AC 05/12 PO 2223 Sertraline HCl 50 MG DAILY 05/12 1000 AC 05/13 PO 0917 Warfarin Sodium 7.5 MG COUMADIN 1700 ONE 05/13 1700 AC PO 05/13 1701 Warfarin Sodium 7.5 MG COUMADIN 1700 ONE 05/12 1700 DC 05/12 PO 05/12 1701 1708 Vital Signs & I&O Last 24 Hrs of Vitals and I&O: Vital Signs Date Time Temp Pulse Resp B/P Pulse O2 O2 Flow FiO2 Ox Delivery Rate 05/13 0917 67 155/68 05/13 0917 67 155/68 05/13 0653 78 180/60 05/13 0400 94 Room Air 05/13 0000 99.8 60 19 141/58 95 Room Air 05/13 0000 95 Room Air 05/12 2211 83 174/63 05/12 2000 100 Room Air 05/12 1709 80 148/95 05/12 1600 99.4 82 20 184/60 94 Room Air 05/12 1200 97 Room Air 05/12 1152 96 Room Air 05/12 0948 72 142/70 05/12 0948 78 142/70 05/12 0947 74 142/73 Intake & Output 05/13 1600 05/13 0800 05/13 0000 Intake Total 0 340 Output Total 400 750 Balance -400 -410 Intake, Oral 0 340 Number 0 0 Bowel Movements Output, Urine 400 750 Exam Other Physical Findings: General - Alert, awake and oriented HEENT - ncat Cardiovascular - S1, S2 Lungs - bilateral rhonchi anterior chest Abdomen - soft, bowel sounds positive, no tenderness Extremities - trace pitting edema Normal capillary refill normal skin turgor Results Last 24 Hrs of Lab Results: Laboratory Tests 05/13/16 0450: Anion Gap 11, Estimated GFR 7 L, Glucose 150 H, Calcium 9.2, Phosphorus 5.6 H , Magnesium 1.9, Total Bilirubin 0.5, AST 19, ALT 33, Troponin I 0.85 *H, Albumin 3.0 L, PT 18.0 H, INR 1.72 H, CBC w Diff NO MAN DIFF REQ, RBC 3.12 L , MCV 90.5, MCH 29.7, RDW 18.0 H, MPV 8.3, Gran % 67.1, Lymphocytes % 18.5 L, Monocytes % 10.9 H, Eosinophils % 2.9, Basophils % 0.6, Absolute Granulocytes 6.1, Absolute Lymphocytes 1.7, Absolute Monocytes 1.0 H, Absolute Eosinophils 0.3, Absolute Basophils 0.1, PUBS MCHC 32.8 L 05/12/16 1220: Troponin I Cancelled Impression/Plan Impression/Plan Impression/Plan: Impression 66-year-old woman -Improved acute hypoxemic and hypercarbic respiratory failure -End-stage renal disease on dialysis -Chronic severe anemia appears stable with a hemoglobin of 7.2 baseline 6.1 last outpatient read per nephrology -Malfunctioning AV graft Plan Respiratory -keep spo2>92% ID - off abx, cx negative to date - monitor wbc, fevers CVS - monitor hemodynamics - ECHO reviewed Heme - monitor cbc/coags Metabolic - monitor ins/outs, creatinine, electrolytes - f/u renal Neuro - stable without acute issues DVT prophylaxis at all times Bakari Cary M.D. TTS 40 Min
--- NOTE | 2016-05-13 11:02 | PN- Resident CRCU ---
Subjective HPI/CRCU Issues: Patient is in ICU for: ESRD with clotted AV fistula, now with the new Adair cath in IJ; ARDS versus pneumonia. Saw patient at bedside this a.m. She said she felt much better posttransfusion. She stated she had no complaints. Denied chest pain, or shortness of breath. Patient is scheduled for fistula gram this a.m. so she is nothing by mouth. No acute overnight events. MAXIMUM TEMPERATURE 98.9, heart rate between 51 and 74, respiratory rate between 16 and 27, blood pressure between 180-108 /60-48 . Satting well on room air. In 1244, out 2104 Objective Vital Signs & I&O Last 8 Hrs of Vitals and I&O: Vital Signs Date Time Temp Pulse Resp B/P Pulse O2 O2 Flow FiO2 Ox Delivery Rate 05/13 0917 67 155/68 05/13 0917 67 155/68 05/13 0653 78 180/60 05/13 0400 94 Room Air 05/13 0000 99.8 60 19 141/58 95 Room Air 05/13 0000 95 Room Air 05/12 2211 83 174/63 05/12 2000 100 Room Air 05/12 1709 80 148/95 05/12 1600 99.4 82 20 184/60 94 Room Air 05/12 1200 97 Room Air 05/12 1152 96 Room Air Intake & Output 05/13 1600 05/13 0800 05/13 0000 Intake Total 0 340 Output Total 400 750 Balance -400 -410 Intake, Oral 0 340 Number 0 0 Bowel Movements Output, Urine 400 750 Exam General Appearance: well developed/nourished, no apparent distress, alert, awake , comfortable Head: atraumatic, normal appearance Ears, Nose, Throat: normal pharynx, normal ENT inspection Neck: supple Respiratory: normal breath sounds, chest non-tender, no respiratory distress, quiet respiration Cardiovascular: regular rate/rhythm, systolic murmur Gastrointestinal: soft, non-tender IV Drips IV Drips: none Nutrition Nutrition: NPO Current Medications: Current Medications Sig/Su Start time Last Medication Dose Route Stop Time Status Admin Acetaminophen 650 MG Q6P PRN 05/11 1929 AC PO Acetaminophen 1,000 MG Q6P PRN 05/11 1929 AC IV Amlodipine Besylate 10 MG DAILY 05/12 1000 AC 05/13 PO 0917 Calcium Acetate 667 MG WM 05/11 1700 AC 05/12 PO 1709 Ceftazidime 1,000 MG DAILY 05/11 1300 DC 05/12 IV 0947 Diclofenac Sodium 1 CATALINA 4 TIMES/DAY 05/12 1400 AC 05/13 TOP 0918 Epoetin Amanuel 10,000 UNIT .WITH DIALYSIS 05/11 2044 AC IV Ergocalciferol 50,000 IU ONCE A WEEK 05/18 1000 AC PO Furosemide 40 MG DAILY 05/12 1000 DC 05/12 PO 0948 Gabapentin 100 MG ONCE ONE 05/12 1530 DC 05/12 PO 05/12 1531 1708 Hydralazine HCl 50 MG TID 05/11 2200 AC 05/13 PO 0653 Insulin Aspart 1 UNITS ONCE ONE 05/12 2315 DC 05/12 SC 05/12 2316 2324 Insulin Aspart 0 TIDAC 05/12 1200 AC 05/12 SC 1707 Insulin Human Regular 0 Q6 05/11 1324 NJ 05/11 SC 1415 Lisinopril 40 MG DAILY 05/12 1000 AC 05/13 PO 0917 Morphine Sulfate 1 MG Q6-PRN PRN 05/11 1930 AC IV Multivitamins 1 TAB DAILY 05/12 1000 AC 05/13 PO 0917 Ramelteon 8 MG .STK-MED ONE 05/12 2220 DC PO 05/12 2221 Ramelteon 8 MG AT BEDTIME PRN 05/11 1815 05/12 PO 2223 Sertraline HCl 50 MG DAILY 05/12 1000 AC 05/13 PO 0917 Warfarin Sodium 7.5 MG COUMADIN 1700 ONE 05/13 1700 AC PO 05/13 1701 Warfarin Sodium 7.5 MG COUMADIN 1700 ONE 05/12 1700 DC 05/12 PO 05/12 1701 1708 Impression/Plan Impression/Problem List Impression: This is a 66-year-old female with past medical history significant for ESRD on hemodialysis, hypertension, diabetes, who was brought in for chief complaint of acute shortness of breath and bradycardia accompanied by unresponsiveness during her hemodialysis. Of note during admission is noted that her dialysis access has clotted. Patient got IJ non-tunnelled cath placed on 05/11/2016. She is due for renal transplant on May 28. PLAN Respiratory: Initially there was concern that patient might have ARDS/pulmonary edema/pneumonia. She was started on Ceftriaxone and vancomycin and subsequently switched to Ceftaz. Patient has been afebrile, white count 9.1 today; repeat chest x-ray yesterday showed dissolution of infiltrates and low probability of pneumonia. * Discontinue ceftaz * Patient will be supplied with CT oxygen saturation goal > 92% ID: See above * Discontinue ceftaz * Negative swab for influenza * We will follow pancx results, negative so far * We will repeat CBC to watch out for any elevation white blood cells CVS: Patient has 3/6 crescendo decrescendo midsystolic murmur best heard at right upper sternal border. She states that she has had this since childhood. Of note, during this admission patient had troponin up to 2.69 subsequently trended down to 2.35 and today at .85. Cardiology made aware. She does not have any accompanying EKG changes. Hemodynamically stable. Possible etiology of elevated troponins include and ischemia secondary to severe anemia and ESRD with decreased clearance of the troponins. She was transfused 2 units PRBCs on 05/11 and subsequently hemodialyzed. Today H&H at 9.3, which is up from 6.7. * We will monitor hemodynamics status * Echocardiogram showed EF of 50. * Cardiology is already on board Heme: She is on warfarin for a coagulopathy which results in recurrent clots in her AV fistula. As such, we will continue to warfarin. Today INR at 1.72. * We will repeat CBC daily * We will consult vascular surgery; fistulogram in a.m. * Continue warfarin Metabolic: * Patient has end-stage renal disease, due for dialysis today. * We will keep monitor ins/outs * Pt NPO currently Neuro: Stable. We'll continue to monitor Endocrine: Patient complained of feeling cold all the time. Most likely secondary to anemia. TSH level: 0.398 within normal limits.. DVT prophylaxis patient is on warfarin NPO CODE STATUS full code Problem List: 1. Hypertension 2. End stage kidney disease 3. Anemia 4. Respiratory failure Pain Ratin Pain Location: NONE Tomorrow's Labs & Rationales: ICU/CBC Plan DVT/Prophylaxis: mechanical, pharmacological
--- NOTE | 2016-05-13 12:28 | PN- Cardiology ---
Subjective Subjective: Patient feels well this morning. Currently no shortness of breath, dyspnea, or palpitations. Objective Vital Signs and I&Os Vital Signs Date Time Temp Pulse Resp B/P Pulse O2 O2 Flow FiO2 Ox Delivery Rate 05/13 0917 67 155/68 05/13 0917 67 155/68 05/13 0800 99.8 77 22 170/80 96 Room Air 05/13 0653 78 180/60 05/13 0400 94 Room Air 05/13 0000 99.8 60 19 141/58 95 Room Air 05/13 0000 95 Room Air 05/12 2211 83 174/63 05/12 2000 100 Room Air 05/12 1709 80 148/95 05/12 1600 99.4 82 20 184/60 94 Room Air Intake & Output 05/13 1600 05/13 0800 05/13 0000 05/12 1600 05/12 0800 05/12 0000 Intake Total 0 340 233 30 8833 Output Total 400 750 170 54 0795 Balance -400 -410 280 -15 -830 Intake, Blood 700 Product Intake, IV 30 0 500 Intake, Oral 0 340 500 25 0 Number 0 0 0 0 0 Bowel Movements Output, 2000 Dialysate Output, Urine 400 750 250 40 30 Physical Exam: General: no apparent distress. Alert. Eyes: No obvious scleral icterus. HEENT: No abnormal jugular venous pulsations. Cardiovascular: Normal intensity S1/S2. 3/6 systolic murmur, dialysis catheter noted. Respiratory: No rales or rhonchi Abdomen: Soft, nontender with no guarding or rebound tenderness. Musculoskeletal: No clubbing or cyanosis noted Skin: Warm Neurologic: No gross focal deficits noted. Current Medications: Current Medications Sig/Su Start time Last Medication Dose Route Stop Time Status Admin Acetaminophen 650 MG Q6P PRN 05/11 1929 AC PO Acetaminophen 1,000 MG Q6P PRN 05/11 1929 AC IV Amlodipine Besylate 10 MG DAILY 05/12 1000 AC 05/13 PO 0917 Calcium Acetate 667 MG WM 05/11 1700 AC 05/12 PO 1709 Ceftazidime 1,000 MG DAILY 05/11 1300 DC 05/12 IV 0947 Diclofenac Sodium 1 CATALINA 4 TIMES/DAY 05/12 1400 AC 05/13 TOP 0918 Epoetin Amanuel 10,000 UNIT .WITH DIALYSIS 05/11 2044 AC IV Ergocalciferol 50,000 IU ONCE A WEEK 05/18 1000 AC PO Furosemide 40 MG DAILY 05/12 1000 DC 05/12 PO 0948 Gabapentin 100 MG ONCE ONE 05/12 1530 DC 05/12 PO 05/12 1531 1708 Hydralazine HCl 50 MG TID 05/11 2200 AC 05/13 PO 0653 Insulin Aspart 1 UNITS ONCE ONE 05/12 2315 DC 05/12 NV 05/12 2316 2324 Insulin Aspart 0 TIDAC 05/12 1200 AC 05/12 SC 1707 Lisinopril 40 MG DAILY 05/12 1000 AC 05/13 PO 0917 Morphine Sulfate 1 MG Q6-PRN PRN 05/11 1930 AC IV Multivitamins 1 TAB DAILY 05/12 1000 AC 05/13 PO 0917 Ramelteon 8 MG .STK-MED ONE 05/12 2220 DC PO 05/12 2221 Ramelteon 8 MG AT BEDTIME PRN 05/11 1815 AC 05/12 PO 2223 Sertraline HCl 50 MG DAILY 05/12 1000 AC 05/13 PO 0917 Warfarin Sodium 7.5 MG COUMADIN 1700 ONE 05/13 1700 AC PO 05/13 1701 Warfarin Sodium 7.5 MG COUMADIN 1700 ONE 05/12 1700 DC 05/12 PO 05/12 1701 1708 Results Last 48 Hrs of Labs/Mics: Laboratory Tests 05/13/16 0450: Anion Gap 11, Estimated GFR 7 L, Glucose 150 H, Calcium 9.2, Phosphorus 5.6 H , Magnesium 1.9, Total Bilirubin 0.5, AST 19, ALT 33, Troponin I 0.85 *H, Albumin 3.0 L, PT 18.0 H, INR 1.72 H, CBC w Diff NO MAN DIFF REQ, RBC 3.12 L , MCV 90.5, MCH 29.7, RDW 18.0 H, MPV 8.3, Gran % 67.1, Lymphocytes % 18.5 L, Monocytes % 10.9 H, Eosinophils % 2.9, Basophils % 0.6, Absolute Granulocytes 6.1, Absolute Lymphocytes 1.7, Absolute Monocytes 1.0 H, Absolute Eosinophils 0.3, Absolute Basophils 0.1, PUBS MCHC 32.8 L 05/12/16 1220: Troponin I Cancelled 05/12/16 0604: Anion Gap 9, Estimated GFR 14 L, Glucose 104 H, Calcium 8.8, Phosphorus 4.8 H , Magnesium 1.8, Total Bilirubin 0.8, AST 29, ALT 33, Troponin I 2.35 *H, Albumin 3.2 L, TSH 0.398, PT 24.2 H, INR 2.32 H, CBC w Diff NO MAN DIFF REQ, RBC 2.91 L, MCV 91.6, MCH 29.7, RDW 18.3 H, MPV 8.1, Gran % 78.3 H, Lymphocytes % 11.8 L, Monocytes % 8.5, Eosinophils % 1.2, Basophils % 0.2, Absolute Granulocytes 8.4 H, Absolute Lymphocytes 1.3, Absolute Monocytes 0.9 H, Absolute Eosinophils 0.1, Absolute Basophils 0, PUBS MCHC 32.4 L 05/11/16 2342: Troponin I 2.69 *H 05/11/16 1710: Anion Gap 12, Estimated GFR 11 L, Glucose 174 H, Calcium 8.2 L, Phosphorus 7.0 H, Magnesium 1.9, Total Bilirubin 0.4, AST 34, ALT 43, Troponin I 1.75 *H, Albumin 3.1 L, PT 25.5 H, INR 2.45 H, APTT 35 05/11/16 1410: CBC w Diff MAN DIFF ORDERED, RBC 2.00 L, MCV 95.5, MCH 30.5, RDW 17.0 H, MPV 8.1, Gran % 94.1 H, Lymphocytes % 2.6 L, Monocytes % 3.3, Eosinophils % 0, Basophils % 0 L, Absolute Granulocytes 17.2 H, Absolute Lymphocytes 0.5 L, Absolute Monocytes 0.6, Absolute Eosinophils 0, Absolute Basophils 0, Hypochromic-Microcytic 1+, Poikilocytosis 1+, Anisocytosis 2+, PUBS MCHC 31.9 L Microbiology 05/11 1224 UPPER RESP: Surveillance Culture - COMP 05/11 1224 GI: Surveillance Culture - COMP Recent Imaging Studies: Chest x-ray from yesterday 1. Right jugular large bore central venous catheter is in place with tip in the deep SVC/cavoatrial junction. 2. Resolution of previously seen diffuse bilateral pulmonary opacities. 3. No focal pneumonia or evidence of pleural effusion. Telemetry tracings were personally reviewed and shows sinus rhythm with occasional PVCs Echocardiogram 1. This was a technically difficult examination. 2. Fibrocalcific degeneration is present in the aortic valve with evidence of mild valvular stenosis (PG 35 mmHg; MG 20 mmHg; DEIRDRE 2.0 cm2) and minimal to mild aortic insufficiency. 3. Thickening and calcification of the mitral leaflets is present extending into the chordal structures with moderate to severe anular calcification and mild mitral stenosis ( PDG 35 mmHg; MDG 18 mmHg: MVA 1.8 cm2 ), mild mitral insufficiency and mild to moderate left atrial atrial enlargement 4. There is no significant pericardial fluid present. 5. The left ventricuar chamber size appears normal. THere is hypokinesia with focal dyskinesia of the mid to distal septum with hypokinesia of the mid to distal anterior wall and an ejection fraction of about 50%. 6. The right heart structures are grossly normal. THe RV systolic pressure could not be accurately assessed. Kayla Chaudhary M.D. (Electronically Signed) Final Date: 12 May 2016 21:02 Assessment/Plan Assessment/Plan 1. Acute hypoxic/hypercapnic respiratory failure with volume overload, - improved 2. Elevated troponin consistent with non-ST elevation myocardial infarction versus demand ischemia in the setting of severe anemia 3. Transient bradycardia-reportedly, the patient had transient sinus bradycardia at the time of the initial event. I suspect this was related to the underlying respiratory issues. She has had no further evidence of bradycardia. 3. Ventricular ectopy-rare ventricular ectopy noted on the monitor at the present time, continue to monitor 4. End-stage renal disease on hemodialysis 5. Acute on Chronic anemia 6. 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 Mild aortic stenosis and mild mitral stenosis noted on echocardiogram The patient is asymptomatic this morning. The elevated troponin may have been due to significant demand ischemia but cannot exclude a small NSTEMI. The patient is on Coumadin for anticoagulation (I.NR 1.72 today). Hg 9.3 today. If no medical contraindication, recommend adding low-dose aspirin and statin as recommended by Dr. Chaudhary yesterday. Would also recommend adding metoprolol 12.5 mg by mouth twice a day while monitoring for bradycardia on telemetry. As the patient is currently asymptomatic were are not planning on inpatient cardiac catheterization at this time but she will certainly need either a repeat nuclear stress test or possibly a cardiac catheterization in the future prior to being considered for renal transplant. Bruno Ulrich MD [facility] Continue telemetry? Yes
--- NOTE | 2016-05-13 14:28 | PN- Nephrology ---
Assessment/Plan Assessment: 1. End-stage renal disease 2. Shortness of breath and altered mental status - transient - now completely resolved; etiology uncertain 3. Thrombosed right upper arm AVG; patient has a temporary non-tunneled catheter in place 4. Severe anemia requiring 2 unit packed RBC transfusion; etiology of anemia, which has recently worsened, needs to be ascertained Suggestion: 1. For fistulogram/thrombolysis today 2. Please check stools for occult blood and work up for anemia 3. Patient will likely need anticoagulation again to maintain patency of her AVG, which makes it critically important to be sure that she is not having ongoing GI blood loss 4. Hemodialysis for tomorrow; if AVG usable, we'll then arrange for discontinuation of her DLQ catheter; there is no clinical indication for dialysis today even with exposure to contrast during her fistulogram Subjective Subjective: Patient feels well this morning without complaint. She denies shortness of breath or chest pain. Objective Vital Signs and I&Os Vital Signs Date Time Temp Pulse Resp B/P Pulse O2 O2 Flow FiO2 Ox Delivery Rate 05/13 0917 67 155/68 05/13 0917 67 155/68 05/13 0800 99.8 77 22 170/80 96 Room Air 05/13 0653 78 180/60 05/13 0400 94 Room Air 05/13 0000 99.8 60 19 141/58 95 Room Air 05/13 0000 95 Room Air 05/12 2211 83 174/63 05/12 2000 100 Room Air 05/12 1709 80 148/95 05/12 1600 99.4 82 20 184/60 94 Room Air Intake & Output 05/13 1600 05/13 0400 05/12 1600 05/12 0400 05/11 1600 05/11 0400 Intake Total 0 518 985 6692 20 Output Total 400 130 041 3992 110 Balance -400 -410 265 -830 -90 Intake, Blood 700 Product Intake, IV 30 500 20 Intake, Oral 0 340 525 0 Number 0 0 0 0 0 Bowel Movements Output, 2000 Dialysate Output, Urine 400 750 290 30 110 Patient 162 lb Weight Physical Exam: General: Well-developed white female in no acute distress Skin: Without rash or jaundice HEENT: Conjunctivae pink, sclerae anicteric, mucous membranes moist Neck: Without masses or thyromegaly, no supraclavicular or cervical adenopathy; there is a right IJ non-tunneled dialysis catheter in place Chest: Clear to P&A Heart: Regular rate and rhythm without S3 or rub Abdomen: Soft and nontender without palpable masses or organomegaly Extremities: Without cyanosis or edema; the right upper arm AVG is without pulse or bruit Neuro: No focal findings, no asterixis or myoclonus Results Pertinent Lab Results: Laboratory Tests 05/13 05/12 0450 1220 Chemistry Sodium (137 - 145 mmol/L) 138 Potassium (3.5 - 5.1 mmol/L) 4.1 Chloride (98 - 107 mmol/L) 104 Carbon Dioxide (22 - 30 mmol/L) 23 Anion Gap (5 - 16) 11 BUN (7 - 17 mg/dL) 40 H Creatinine (0.5 - 1.0 mg/dL) 5.8 *H Estimated GFR (>60 ml/min) 7 L Glucose (65 - 99 mg/dL) 150 H Calcium (8.4 - 10.2 mg/dL) 9.2 Phosphorus (2.5 - 4.5 mg/dL) 5.6 H Magnesium (1.6 - 2.3 mg/dL) 1.9 Total Bilirubin (0.2 - 1.3 mg/dL) 0.5 AST (14 - 36 U/L) 19 ALT (9 - 52 U/L) 33 Troponin I (< 0.11 ng/ml) 0.85 *H Cancelled Albumin (3.5 - 5.0 g/dL) 3.0 L Coagulation PT (9.4 - 12.5 SEC) 18.0 H INR (0.90 - 1.19) 1.72 H Hematology CBC w Diff NO MAN DIFF REQ WBC (4.8 - 10.8 /CUMM) 9.1 RBC (4.20 - 5.40 /CUMM) 3.12 L Hgb (12.0 - 16.0 G/DL) 9.3 L Hct (37 - 47 %) 28.2 L MCV (81.0 - 99.0 FL) 90.5 MCH (27.0 - 31.0 PG) 29.7 RDW (11.5 - 14.5 %) 18.0 H Plt Count (130 - 400 /CUMM) 321 MPV (7.4 - 10.4 FL) 8.3 Gran % (42.2 - 75.2 %) 67.1 Lymphocytes % (20.5 - 51.1 %) 18.5 L Monocytes % (1.7 - 9.3 %) 10.9 H Eosinophils % (0 - 5 %) 2.9 Basophils % (0.0 - 2.0 %) 0.6 Absolute Granulocytes (1.4 - 6.5 /CUMM) 6.1 Absolute Lymphocytes (1.2 - 3.4 /CUMM) 1.7 Absolute Monocytes (0.10 - 0.60 /CUMM) 1.0 H Absolute Eosinophils (0.0 - 0.7 /CUMM) 0.3 Absolute Basophils (0.0 - 0.2 /CUMM) 0.1 PUBS MCHC (33.0 - 37.0 G/DL) 32.8 L 05/12 05/11 05/11 0604 2342 1710 Chemistry Sodium (137 - 145 mmol/L) 139 141 Potassium (3.5 - 5.1 mmol/L) 3.6 4.0 Chloride (98 - 107 mmol/L) 104 103 Carbon Dioxide (22 - 30 mmol/L) 26 25 Anion Gap (5 - 16) 9 12 BUN (7 - 17 mg/dL) 17 28 H Creatinine (0.5 - 1.0 mg/dL) 3.4 H 4.2 H Estimated GFR (>60 ml/min) 14 L 11 L Glucose (65 - 99 mg/dL) 104 H 174 H Calcium (8.4 - 10.2 mg/dL) 8.8 8.2 L Phosphorus (2.5 - 4.5 mg/dL) 4.8 H 7.0 H Magnesium (1.6 - 2.3 mg/dL) 1.8 1.9 Total Bilirubin (0.2 - 1.3 mg/dL) 0.8 0.4 AST (14 - 36 U/L) 29 34 ALT (9 - 52 U/L) 33 43 Troponin I (< 0.11 ng/ml) 2.35 *H 2.69 *H 1.75 *H Albumin (3.5 - 5.0 g/dL) 3.2 L 3.1 L TSH (0.270 - 4.200 uIU/mL) 0.398 Coagulation PT (9.4 - 12.5 SEC) 24.2 H 25.5 H INR (0.90 - 1.19) 2.32 H 2.45 H APTT (25 - 37 SEC) 35 Hematology CBC w Diff NO MAN DIFF REQ WBC (4.8 - 10.8 /CUMM) 10.7 RBC (4.20 - 5.40 /CUMM) 2.91 L Hgb (12.0 - 16.0 G/DL) 8.6 L Hct (37 - 47 %) 26.6 L MCV (81.0 - 99.0 FL) 91.6 MCH (27.0 - 31.0 PG) 29.7 RDW (11.5 - 14.5 %) 18.3 H Plt Count (130 - 400 /CUMM) 295 MPV (7.4 - 10.4 FL) 8.1 Gran % (42.2 - 75.2 %) 78.3 H Lymphocytes % (20.5 - 51.1 %) 11.8 L Monocytes % (1.7 - 9.3 %) 8.5 Eosinophils % (0 - 5 %) 1.2 Basophils % (0.0 - 2.0 %) 0.2 Absolute Granulocytes (1.4 - 6.5 /CUMM) 8.4 H Absolute Lymphocytes (1.2 - 3.4 /CUMM) 1.3 Absolute Monocytes (0.10 - 0.60 /CUMM) 0.9 H Absolute Eosinophils (0.0 - 0.7 /CUMM) 0.1 Absolute Basophils (0.0 - 0.2 /CUMM) 0 PUBS MCHC (33.0 - 37.0 G/DL) 32.4 L 05/11 05/11 1410 1150 Coagulation APTT Cancelled Hematology CBC w Diff MAN DIFF ORDERED WBC (4.8 - 10.8 /CUMM) 18.2 H RBC (4.20 - 5.40 /CUMM) 2.00 L Hgb (12.0 - 16.0 G/DL) 6.1 *L Hct (37 - 47 %) 19.1 *L MCV (81.0 - 99.0 FL) 95.5 MCH (27.0 - 31.0 PG) 30.5 RDW (11.5 - 14.5 %) 17.0 H Plt Count (130 - 400 /CUMM) 299 MPV (7.4 - 10.4 FL) 8.1 Gran % (42.2 - 75.2 %) 94.1 H Lymphocytes % (20.5 - 51.1 %) 2.6 L Monocytes % (1.7 - 9.3 %) 3.3 Eosinophils % (0 - 5 %) 0 Basophils % (0.0 - 2.0 %) 0 L Absolute Granulocytes (1.4 - 6.5 /CUMM) 17.2 H Absolute Lymphocytes (1.2 - 3.4 /CUMM) 0.5 L Absolute Monocytes (0.10 - 0.60 /CUMM) 0.6 Absolute Eosinophils (0.0 - 0.7 /CUMM) 0 Absolute Basophils (0.0 - 0.2 /CUMM) 0 Hypochromic-Microcytic 1+ Poikilocytosis 1+ Anisocytosis 2+ PUBS MCHC (33.0 - 37.0 G/DL) 31.9 L 05/11 05/11 1015 0850 Blood Gas pH (7.35 - 7.45 PH) 7.27 *L pCO2 (35 - 45 TORR) 51 H pO2 (80 - 100 TORR) 155 H HCO3 (21 - 28 MEQ/L) 24 ABG O2 Sat (Measured) (>96.0 %) 98.0 P-50 (Temp Corrected) Y Carboxyhemoglobin (1.5 - 5.0 %) 1.1 L O2 Concentration % 100 Temperature (97.0 - 100.0 FARH) 96.1 L Respiration Rate (BPM) 22 O2 Delivery Method BIPAP Vent Mode ST Expiratory Pressure (CM H2O P) 6 Inspiratory Pressure (CM H2O P) 18 Miscellaneous Phlebotomy Draw Site LEFT RADIAL Toxicology Urine Opiates Screen (>2000 NG/ML) < 100.00 Methadone Screen (>300 NG/ML) < 40 Barbiturate Screen (>200 NG/ML) < 60 Ur Phencyclidine Scrn (>25 NG/ML) < 6.00 Amphetamines Screen (>1000 NG/ML) < 100 U Benzodiazepines Scrn (>200 NG/ML) < 85 Urine Cocaine Screen (>300 NG/ML) < 50 Urine Cannabis Screen (>50 NG/ML) < 5.00 Urines Urinalysis LIGHT H Urine Color (YEL,AMB,STR) YEL Urine Clarity (CLEAR) CLEAR Urine pH (5.0 - 8.0) 7.5 Ur Specific [place] (1.001 - 1.035) 1.020 Urine Protein (NEG,<30 MG/DL) >=300 H Urine Ketones (NEG) NEG Urine Nitrite (NEG) NEG Urine Bilirubin (NEG) NEG Urine Urobilinogen (0.1 - 1.0 EU/dl) 0.2 Ur Leukocyte Esterase (NEG) NEG Ur Microscopic SEDIMENT EXAMINED Urine RBC (0 - 5 /HPF) 1-3 Urine WBC (0 - 2 /HPF) 1-3 H Ur Epithelial Cells (NONE,FEW) RARE Urine Mucus (FEW,NONE) RARE Urine Hemoglobin (NEG) TRACE-LYSED Urine Glucose (N MG/DL) 100 H 05/11 05/11 0843 0842 Chemistry Sodium (137 - 145 mmol/L) 141 Potassium (3.5 - 5.1 mmol/L) 3.7 Chloride (98 - 107 mmol/L) 103 Carbon Dioxide (22 - 30 mmol/L) 24 Anion Gap (5 - 16) 15 BUN (7 - 17 mg/dL) 21 H Creatinine (0.5 - 1.0 mg/dL) 3.2 H Estimated GFR (>60 ml/min) 15 L BUN/Creatinine Ratio (7 - 25 %) 6.6 L Glucose (65 - 99 mg/dL) 312 H Lactic Acid (0.7 - 2.1 mmol/L) 2.6 H Calcium (8.4 - 10.2 mg/dL) 7.8 L Total Bilirubin (0.2 - 1.3 mg/dL) 0.5 AST (14 - 36 U/L) 60 H ALT (9 - 52 U/L) 43 Alkaline Phosphatase (<127 U/L) 178 H Troponin I (< 0.11 ng/ml) 0.02 Total Protein (6.3 - 8.2 g/dL) 6.4 Albumin (3.5 - 5.0 g/dL) 3.6 Globulin (1.9 - 4.2 gm/dL) 2.8 Albumin/Globulin Ratio (1.1 - 2.2 %) 1.3 Coagulation PT (9.4 - 12.5 SEC) 24.0 H INR (0.90 - 1.19) 2.30 H APTT (25 - 37 SEC) 37 Hematology CBC w Diff NO MAN DIFF REQ WBC (4.8 - 10.8 /CUMM) 15.3 H RBC (4.20 - 5.40 /CUMM) 2.34 L Hgb (12.0 - 16.0 G/DL) 7.2 *L Hct (37 - 47 %) 22.4 L MCV (81.0 - 99.0 FL) 96.0 MCH (27.0 - 31.0 PG) 30.8 RDW (11.5 - 14.5 %) 17.4 H Plt Count (130 - 400 /CUMM) 447 H MPV (7.4 - 10.4 FL) 8.4 Gran % (42.2 - 75.2 %) 76.7 H Lymphocytes % (20.5 - 51.1 %) 17.4 L Monocytes % (1.7 - 9.3 %) 3.1 Eosinophils % (0 - 5 %) 2.4 Basophils % (0.0 - 2.0 %) 0.4 Absolute Granulocytes (1.4 - 6.5 /CUMM) 11.8 H Absolute Lymphocytes (1.2 - 3.4 /CUMM) 2.7 Absolute Monocytes (0.10 - 0.60 /CUMM) 0.5 Absolute Eosinophils (0.0 - 0.7 /CUMM) 0.4 Absolute Basophils (0.0 - 0.2 /CUMM) 0.1 PUBS MCHC (33.0 - 37.0 G/DL) 32.0 L
[2016-05-13 16:00] VITALS: BP 154/58
--- NOTE | 2016-05-13 23:04 | ULTRASOUND REPORT ---
EXAMINATION: US TRIPLEX UPPER EXTREMITY, BILATERAL CLINICAL INFORMATION: Occluded AV fistula within the right upper extremity. COMPARISON: Right upper extremity ultrasound 05/12/2016. TECHNIQUE: Color-flow triplex imaging with spectral analysis and compression Doppler were performed on the bilateral upper extremity veins. FINDINGS: Respiratory variation, normal compression and flow are noted throughout the imaged veins of the left upper extremity. Specifically, the left internal jugular, subclavian, axillary, brachial and basilic veins demonstrate no evidence of deep venous thrombosis. Evaluation of the right upper extremity somewhat limited secondary to overlying bandages along the right neck. The right internal jugular vein could not be adequately visualized. A linear echogenicity within the subclavian vein may correspond to a small venous catheter. The right subclavian and axillary veins are patent, without evidence of deep venous thrombosis. An AV fistula is again noted within the right upper extremity. The proximal segment of the graft is patent with internal flow. However, the mid segment of the graft demonstrates no internal flow. Flow is identified within the distal segment of the graft. The right axillary, brachial, basilic and cephalic veins are patent, without evidence of deep venous thrombosis. IMPRESSION: 1. No evidence of deep venous thrombosis involving the left upper extremity veins, as described above. 2. Limited evaluation of the right internal jugular vein secondary to overlying bandage material. Redemonstrated is a graft within the right upper extremity with occlusion of the mid segment of the graft. Flow is identified within the proximal and distal segments of the graft. There is no evidence of deep venous thrombosis involving the [place] imaged veins of the right upper extremity, as noted above.
[2016-05-13 23:59] VITALS: BP 156/80
[2016-05-14 06:07] LABS: ABSOLUTE BASOPHIL COUNT 0 /CUMM (0.0-0.2); ABSOLUTE EOSINOPHIL COUNT 0.3 /CUMM (0.0-0.7); ABSOLUTE GRANULOCYTE CT 6.4 /CUMM (1.4-6.5); ABSOLUTE LYMPH COUNT 1.3 /CUMM (1.2-3.4); ABSOLUTE MONOCYTE COUNT 0.9 /CUMM (0.10-0.60); BASOPHIL % 0.3 % (0.0-2.0); EOSINOPHIL % 3.5 % (0-5); GRANULOCYTE % 71.6 % (42.2-75.2); HEMATOCRIT 27.9 % (37-47); MEAN CORPUSCULAR HGB 29.4 PG (27.0-31.0); MEAN CORPUSCULAR HGB CONC 32.3 G/DL (33.0-37.0); MEAN CORPUSCULAR VOLUME 91.1 FL (81.0-99.0); MEAN PLATELET VOLUME 8.2 FL (7.4-10.4); PLATELET COUNT 323 /CUMM (130-400); RBC DISTRIBUTION WIDTH 17.5 % (11.5-14.5); RED BLOOD CELL CT 3.06 /CUMM (4.20-5.40); WHITE BLOOD CELL COUNT 8.9 /CUMM (4.8-10.8)
[2016-05-14 08:00] VITALS: BP 170/67
--- NOTE | 2016-05-14 08:36 | PN- Cardiology ---
Subjective Subjective: Patient feels well. She is currently undergoing dialysis. She denies chest pain or shortness of breath. Review of Systems: Eyes no blurred or double vision Ears no deafness or ringing Nose and throat no recurrent sinusitis Lungs per history of present illness Heart per history of present illness Abdomen no nausea vomiting Musculoskeletal occasional muscle and joint pains Psych no anxiety or depression Neuro without recurrent headache or seizures Endocrine no heat or cold intolerance Objective Vital Signs and I&Os Vital Signs Date Time Temp Pulse Resp B/P Pulse O2 O2 Flow FiO2 Ox Delivery Rate 05/14 0603 78 152/74 05/13 2359 99.3 66 18 156/80 95 Room Air 05/13 2120 72 150/80 05/13 1623 80 156/69 05/13 1600 98.9 70 22 154/58 93 Room Air 05/13 0917 67 155/68 05/13 0917 67 155/68 Intake & Output 05/14 1600 05/14 0800 05/14 0000 05/13 1600 05/13 0800 05/13 0000 Intake Total 240 335 50 0 340 Output Total 300 250 375 400 750 Balance -60 85 -325 -400 -410 Intake, IV 20 Intake, Oral 240 315 50 0 340 Number 0 0 0 Bowel Movements Output, Urine 300 250 375 400 750 Patient 156 lb Weight Physical Exam: Patient is a well-developed well-nourished female appearing in no acute distress HEENT is unremarkable Neck is supple there is no JVD Lungs are clear Heart regular rhythm S1 and S2 are normal 3/6 systolic ejection murmur at the right upper sternal border no gallops or rubs Abdomen bowel sounds positive Extremities without edema Current Medications: Current Medications Sig/Su Start time Last Medication Dose Route Stop Time Status Admin Acetaminophen 650 MG Q6P PRN 05/11 1929 AC PO Acetaminophen 1,000 MG Q6P PRN 05/11 193 AC IV Amlodipine Besylate 10 MG DAILY 05/12 1000 AC 05/13 PO 0917 Aspirin 81 MG DAILY 05/13 1721 AC 05/13 PO 1758 Atorvastatin Calcium 40 MG 1700 05/14 1700 AC PO Calcium Acetate 667 MG WM 05/11 1700 AC 05/13 PO 1623 Diclofenac Sodium 1 CATALINA 4 TIMES/DAY 05/12 1400 AC 05/13 TOP 2120 Epoetin Amanuel 10,000 UNIT .WITH DIALYSIS 05/11 2044 AC IV Ergocalciferol 50,000 IU ONCE A WEEK 05/18 1000 AC PO Heparin Sodium 2,000 UNIT BOLUS ONE 05/14 0730 DC (Porcine) IV 05/14 0731 Hydralazine HCl 50 MG Q8 05/13 1530 AC 05/14 PO 0603 Hydralazine HCl 50 MG TID 05/11 2200 DC 05/13 PO 0653 Insulin Aspart 0 TIDAC 05/12 1200 AC 05/12 SC 1707 Lisinopril 40 MG DAILY 05/12 1000 AC 05/13 PO 0917 Metoprolol Tartrate 12.5 MG BID 05/13 2200 AC 05/13 PO 2120 Morphine Sulfate 1 MG Q6-PRN PRN 05/11 1930 AC 05/13 IV 2121 Multivitamins 1 TAB DAILY 05/12 1000 AC 05/13 PO 0917 Ramelteon 8 MG .STK-MED ONE 05/13 2101 DC PO 05/13 210 Ramelteon 8 MG AT BEDTIME PRN 05/11 1815 AC 05/13 PO 2109 Sertraline HCl 50 MG DAILY 05/12 1000 AC 05/13 PO 0917 Warfarin Sodium 5 MG COUMADIN 1700 ONE 05/14 1700 AC PO 05/14 1701 Warfarin Sodium 5 MG .[Fri] 05/14 0800 CAN PO Warfarin Sodium 7.5 MG .[Fri ] 05/14 0800 CAN PO Warfarin Sodium 7.5 MG COUMADIN 1700 ONE 05/13 1700 DC 05/13 PO 05/13 1701 1624 Results Last 48 Hrs of Labs/Mics: Laboratory Tests 05/14/16 0515: Anion Gap 11, Estimated GFR 6 L, Glucose 169 H, Calcium 8.9, Phosphorus 5.9 H , Magnesium 1.9, Total Bilirubin 0.4, AST 17, ALT 36, Albumin 3.2 L, PT 21.0 H , INR 2.01 H, CBC w Diff NO MAN DIFF REQ, RBC 3.06 L, MCV 91.1, MCH 29.4, RDW 17.5 H, MPV 8.2, Gran % 71.6, Lymphocytes % 14.4 L, Monocytes % 10.2 H, Eosinophils % 3.5, Basophils % 0.3, Absolute Granulocytes 6.4, Absolute Lymphocytes 1.3, Absolute Monocytes 0.9 H, Absolute Eosinophils 0.3, Absolute Basophils 0, PUBS MCHC 32.3 L 05/13/16 0450: Anion Gap 11, Estimated GFR 7 L, Glucose 150 H, Calcium 9.2, Phosphorus 5.6 H , Magnesium 1.9, Total Bilirubin 0.5, AST 19, ALT 33, Troponin I 0.85 *H, Albumin 3.0 L, PT 18.0 H, INR 1.72 H, CBC w Diff NO MAN DIFF REQ, RBC 3.12 L , MCV 90.5, MCH 29.7, RDW 18.0 H, MPV 8.3, Gran % 67.1, Lymphocytes % 18.5 L, Monocytes % 10.9 H, Eosinophils % 2.9, Basophils % 0.6, Absolute Granulocytes 6.1, Absolute Lymphocytes 1.7, Absolute Monocytes 1.0 H, Absolute Eosinophils 0.3, Absolute Basophils 0.1, PUBS MCHC 32.8 L 05/12/16 1220: Troponin I Cancelled Telemetry personally reviewed sinus rhythm PVCs Assessment/Plan Assessment/Plan 1. Acute hypoxic/hypercapnic respiratory failure with volume overload, resolved 2. Elevated troponin consistent with non-ST elevation myocardial infarction versus demand ischemia in the setting of severe anemia 3. Transient bradycardia-reportedly, the patient had transient sinus bradycardia at the time of the initial event. I suspect this was related to the underlying respiratory issues. She has had no further evidence of bradycardia. 3. Ventricular ectopy-rare ventricular ectopy noted on the monitor at the present time, continue to monitor 4. End-stage renal disease on hemodialysis 5. Acute on Chronic anemia 6. 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 Mild aortic stenosis and mild mitral stenosis noted on echocardiogram Recommendations 1. Continue current medications 2. Plan is for fistula thrombolyzes today 3. Patient will require further ischemic workup as an outpatient consisting either of a nuclear stress test or cardiac catheterization prior to consideration for renal transplant Continue telemetry? Yes
--- NOTE | 2016-05-14 09:19 | PN- Pulmonary ---
Subjective HPI/Critical Care Issues: pt seen and examined doing well this am no dyspnea or cp hd no n/v/d/c for fistulogram Objective Current Medications: Current Medications Sig/Su Start time Last Medication Dose Route Stop Time Status Admin Acetaminophen 650 MG Q6P PRN 05/11 1929 AC PO Acetaminophen 1,000 MG Q6P PRN 05/11 193 AC IV Amlodipine Besylate 10 MG DAILY 05/12 1000 AC 05/13 PO 0917 Aspirin 81 MG DAILY 05/13 1721 AC 05/13 PO 1758 Atorvastatin Calcium 40 MG 1700 05/14 1700 AC PO Calcium Acetate 667 MG WM 05/11 1700 AC 05/13 PO 1623 Diclofenac Sodium 1 CATALINA 4 TIMES/DAY 05/12 1400 AC 05/13 TOP 2120 Epoetin Amanuel 10,000 UNIT .WITH DIALYSIS 05/11 2044 AC IV Ergocalciferol 50,000 IU ONCE A WEEK 05/18 1000 AC PO Heparin Sodium 2,000 UNIT BOLUS ONE 05/14 0730 DC 05/14 (Porcine) IV 05/14 0731 0854 Hydralazine HCl 50 MG Q8 05/13 1530 AC 05/14 PO 0603 Hydralazine HCl 50 MG TID 05/11 2200 DC 05/13 PO 0653 Insulin Aspart 0 TIDAC 05/12 1200 AC 05/12 SC 1707 Lisinopril 40 MG DAILY 05/12 1000 AC 05/13 PO 0917 Metoprolol Tartrate 12.5 MG BID 05/13 2200 AC 05/13 PO 2120 Morphine Sulfate 1 MG Q6-PRN PRN 05/11 1930 AC 05/13 IV 2121 Multivitamins 1 TAB DAILY 05/12 1000 AC 05/13 PO 0917 Ramelteon 8 MG .STK-MED ONE 05/13 2101 DC PO 05/13 210 Ramelteon 8 MG AT BEDTIME PRN 05/11 1815 AC 05/13 PO 2109 Sertraline HCl 50 MG DAILY 05/12 1000 AC 05/13 PO 0917 Warfarin Sodium 5 MG COUMADIN 1700 ONE 05/14 1700 AC PO 05/14 1701 Warfarin Sodium 5 MG .[Fri] 05/14 0800 CAN PO Warfarin Sodium 7.5 MG .[Fri ] 05/14 0800 CAN PO Warfarin Sodium 7.5 MG COUMADIN 1700 ONE 05/13 1700 DC 05/13 PO 05/13 1701 1624 Vital Signs & I&O Last 24 Hrs of Vitals and I&O: Vital Signs Date Time Temp Pulse Resp B/P Pulse O2 O2 Flow FiO2 Ox Delivery Rate 05/14 08 98.0 70 20 170/67 95 Room Air 05/14 0603 78 152/74 05/13 2359 99.3 66 18 156/80 95 Room Air 05/13 2120 72 150/80 05/13 1623 80 156/69 05/13 1600 98.9 70 22 154/58 93 Room Air Intake & Output 05/14 1600 05/14 0800 05/14 0000 Intake Total 240 335 Output Total 300 250 Balance -60 85 Intake, IV 20 Intake, Oral 240 315 Output, Urine 300 250 Patient 156 lb 156 lb Weight Exam Other Physical Findings: General - Alert, awake and oriented HEENT - ncat Cardiovascular - S1, S2, +murmur Lungs - bilateral rhonchi anterior chest Abdomen - soft, bowel sounds positive, no tenderness Extremities - no edema Results Last 24 Hrs of Lab Results: Laboratory Tests 05/14/16 0515: Anion Gap 11, Estimated GFR 6 L, Glucose 169 H, Calcium 8.9, Phosphorus 5.9 H , Magnesium 1.9, Total Bilirubin 0.4, AST 17, ALT 36, Albumin 3.2 L, PT 21.0 H , INR 2.01 H, CBC w Diff NO MAN DIFF REQ, RBC 3.06 L, MCV 91.1, MCH 29.4, RDW 17.5 H, MPV 8.2, Gran % 71.6, Lymphocytes % 14.4 L, Monocytes % 10.2 H, Eosinophils % 3.5, Basophils % 0.3, Absolute Granulocytes 6.4, Absolute Lymphocytes 1.3, Absolute Monocytes 0.9 H, Absolute Eosinophils 0.3, Absolute Basophils 0, PUBS MCHC 32.3 L Impression/Plan Impression/Plan Impression/Plan: Impression 66-year-old woman -Improved acute hypoxemic and hypercarbic respiratory failure -End-stage renal disease on dialysis -Chronic severe anemia appears stable with a hemoglobin of 7.2 baseline 6.1 last outpatient read per nephrology -Malfunctioning AV graft Plan -for fistulogram today -hd per renal -cardiology f/u -outpt ischemic w/u per cardiology -telemetry monitoring per cardiology DG to tele
--- NOTE | 2016-05-14 09:49 | PN- Housestaff ---
Subjective Follow-up For: Patient in ICU for: ESRD with clotted access. Tele-Events Since Last Visit: No acute overnight events on telemetry. Patient in NSR. Subjective: Saw patient at bedside this a.m. She was getting dialyzed. She stated that she felt much better than admission. No acute overnight events. No complaints. Pt now NPO going for fistulogram later today. MAXIMUM TEMPERATURE noted at 99.8, INR 2.01 this AM. Creatinine prior dialysis was 7. Review of Systems Constitutional: Denies: chills, diaphoresis, fever, weakness. EENTM: Reports: no symptoms. Cardiovascular: Denies: chest pain, palpitations. Respiratory: Denies: cough, hemoptysis, short of breath. Gastrointestinal: Denies: abdominal pain, constipation, diarrhea. Genitourinary: Reports: no symptoms. Musculoskeletal: Denies: back pain, joint pain. Skin: Reports: no symptoms. Objective Last 24 Hrs of Vital Signs/I&O Vital Signs Date Time Temp Pulse Resp B/P Pulse O2 O2 Flow FiO2 Ox Delivery Rate 05/14 08 98.0 70 20 170/67 95 Room Air 05/14 0603 78 152/74 05/13 2359 99.3 66 18 156/80 95 Room Air 05/13 2120 72 150/80 05/13 1623 80 156/69 05/13 1600 98.9 70 22 154/58 93 Room Air Intake & Output 05/14 1600 05/14 0800 05/14 0000 Intake Total 240 335 Output Total 300 250 Balance -60 85 Intake, IV 20 Intake, Oral 240 315 Output, Urine 300 250 Patient 70.534 kg 70.534 kg Weight Physical Exam General Appearance: Alert, Oriented X3, Cooperative, No Acute Distress Skin: No Rashes, No Breakdown HEENT: Atraumatic, PERRLA, EOMI, Mucous Membr. moist/pink Neck: Supple Cardiovascular: Regular Rate, Normal S1, Normal S2, 3/6 systolic murmur Lungs: Clear to Auscultation, Normal Air Movement Abdomen: Soft, No Tenderness Neurological: Normal Speech, Normal Tone, Sensation Intact, Cranial Nerves 3-12 NL Extremities: No Clubbing, No Edema, No Tenderness/Swelling Vascular: Normal Pulses Current Medications: Current Medications Sig/Su Start time Last Medication Dose Route Stop Time Status Admin Acetaminophen 650 MG Q6P PRN 01/21 1930 AC PO Acetaminophen 1,000 MG Q6P PRN 05/11 1930 AC IV Amlodipine Besylate 10 MG DAILY 05/12 1000 AC 05/13 PO 0917 Aspirin 81 MG DAILY 05/13 1721 AC 05/13 PO 1758 Atorvastatin Calcium 40 MG 1700 05/14 1700 AC PO Calcium Acetate 667 MG WM 05/11 1700 AC 05/13 PO 1623 Diclofenac Sodium 1 CATALINA 4 TIMES/DAY 05/12 1400 AC 05/13 TOP 2120 Epoetin Amanuel 10,000 UNIT .WITH DIALYSIS 05/11 2044 IV Ergocalciferol 50,000 IU ONCE A WEEK 05/18 1000 AC PO Heparin Sodium 2,000 UNIT BOLUS ONE 05/14 0730 DC 05/14 (Porcine) IV 05/14 0731 0854 Hydralazine HCl 50 MG Q8 05/13 1530 AC 05/14 PO 0603 Hydralazine HCl 50 MG TID 05/11 2200 DC 05/13 PO 0653 Insulin Aspart 0 TIDAC 05/12 1200 AC 05/12 SC 1707 Lisinopril 40 MG DAILY 05/12 1000 AC 05/13 PO 0917 Metoprolol Tartrate 12.5 MG BID 05/13 2200 AC 05/13 PO 2120 Morphine Sulfate 1 MG Q6-PRN PRN 05/11 193 AC 05/13 IV 2121 Multivitamins 1 TAB DAILY 05/12 1000 AC 05/13 PO 0917 Ramelteon 8 MG .STK-MED ONE 05/13 2101 DC PO 05/13 210 Ramelteon 8 MG AT BEDTIME PRN 05/11 1815 AC 05/13 PO 2109 Sertraline HCl 50 MG DAILY 05/12 1000 AC 05/13 PO 0917 Warfarin Sodium 5 MG COUMADIN 1700 ONE 05/14 1700 AC PO 05/14 1701 Warfarin Sodium 5 MG .[Fri] 05/14 0800 CAN PO Warfarin Sodium 7.5 MG .[Fri ] 05/14 0800 CAN PO Warfarin Sodium 7.5 MG COUMADIN 1700 ONE 05/13 1700 DC 05/13 PO 05/13 1701 1624 Last 24 Hrs of Lab/Anupam Results Last 24 Hrs of Labs/Mics: Laboratory Tests 05/14/16 0515: Anion Gap 11, Estimated GFR 6 L, Glucose 169 H, Calcium 8.9, Phosphorus 5.9 H , Magnesium 1.9, Total Bilirubin 0.4, AST 17, ALT 36, Albumin 3.2 L, PT 21.0 H , INR 2.01 H, CBC w Diff NO MAN DIFF REQ, RBC 3.06 L, MCV 91.1, MCH 29.4, RDW 17.5 H, MPV 8.2, Gran % 71.6, Lymphocytes % 14.4 L, Monocytes % 10.2 H, Eosinophils % 3.5, Basophils % 0.3, Absolute Granulocytes 6.4, Absolute Lymphocytes 1.3, Absolute Monocytes 0.9 H, Absolute Eosinophils 0.3, Absolute Basophils 0, PUBS MCHC 32.3 L Assessment/Plan Assessment: This is a 66-year-old female with past medical history significant for ESRD on hemodialysis, hypertension, diabetes, who was brought in for chief complaint of acute shortness of breath and bradycardia accompanied by unresponsiveness during her hemodialysis. Of note, during admission is noted that her dialysis access has clotted. Patient got IJ non-tunnelled cath placed on 05/11/2016. She is due for renal transplant on May 28. PLAN Respiratory/ID: RESOLVED. Initially there was concern that patient might have ARDS/pulmonary edema/pneumonia. She was started on Ceftriaxone and vancomycin and subsequently switched to Ceftaz. Patient has been afebrile, white count 9.0 today; repeat chest x-ray yesterday showed dissolution of infiltrates and low probability of pneumonia. * Discontinue ceftaz * Keep O2> 92% * We will follow pancx results, negative so far * Negative swab for influenza CVS: Of note, during this admission patient had troponin up to 2.69 subsequently trended down to 2.35 and on 05/13 at .85. She did not have any accompanying EKG changes. Hemodynamically stable. Possible etiology of elevated troponins include and ischemia secondary to severe anemia and ESRD with decreased clearance of the troponins. She was transfused 2 units PRBCs on 05/11 and subsequently hemodialyzed. Today H&H at 9.0, which is up from 6.7 at admission. She will require outpatient stress test/work up prior to her renal transplant. * We will monitor hemodynamics status * Echocardiogram showed EF of 50. * Cardiology is already on board * FOBT-Guiac all stool Heme: She is on warfarin for a coagulopathy which results in recurrent clots in her AV fistula. As such, we will continue warfarin. Today INR at 2.01 * We will repeat CBC daily * We will consult vascular surgery; fistulogram in a.m. * Continue warfarin Metabolic: * Patient has end-stage renal disease, due for dialysis today. * Monitor ins/outs * Pt NPO currently Neuro: Stable. We'll continue to monitor Endocrine: Patient complained of feeling cold all the time. Most likely secondary to anemia. TSH level: 0.398 within normal limits.. Renal: Pt ESRD. Due for dialysis today. Getting fistulogram for clotted l. arm access. DVT prophylaxis patient is on warfarin NPO CODE STATUS full code Problem List: 1. End stage kidney disease 2. Anemia 3. Respiratory failure Pain Ratin Pain Location: NONE Pain Goal: Remain pain free Pain Plan: NONE Tomorrow's Labs & Rationales: CBC ICU DVT/Prophylaxis: pharmacological Consulting Request: Consulting Specialty: Cardiology
--- NOTE | 2016-05-14 10:40 | PN- Nephrology ---
Assessment/Plan Assessment: 1. End-stage renal disease 2. Shortness of breath and altered mental status - transient - now completely resolved; etiology uncertain 3. Thrombosed right upper arm AVG - thombectomy cancelled yesterday; patient has a temporary non-tunneled catheter in place 4. Severe anemia requiring 2 unit packed RBC transfusion; etiology of anemia, which has recently worsened, being evaluated Suggestion: 1. Hemodialysis today - in progress 2. For thrombectomy after dialysis 3. Workup of anemia 4. Patient will likely need anticoagulation again to maintain patency of her AVG, which makes it critically important to be sure that she is not having ongoing GI blood loss 4. Will discontinue non-tunneled dialysis catheter once it is clear that her AVG is functional Subjective Subjective: Patient continues to feel well without any shortness of breath, chest pain or lightheadedness. Seen with hemodialysis which is in progress. Thrombectomy of her AVG was canceled yesterday for reasons that are unclear but rescheduled for later today. Objective Vital Signs and I&Os Vital Signs Date Time Temp Pulse Resp B/P Pulse O2 O2 Flow FiO2 Ox Delivery Rate 05/14 0800 98.0 70 20 170/67 95 Room Air 05/14 0603 78 152/74 05/13 2359 99.3 66 18 156/80 95 Room Air 05/13 2120 72 150/80 05/13 1623 80 156/69 05/13 1600 98.9 70 22 154/58 93 Room Air Intake & Output 05/14 1600 05/14 0400 05/13 1600 05/13 0400 05/12 1600 05/12 0400 Intake Total 240 335 50 526 665 7128 Output Total 300 250 775 694 855 3740 Balance -60 85 -725 -410 265 -830 Intake, Blood 700 Product Intake, IV 20 30 500 Intake, Oral 240 315 50 340 525 0 Number 0 0 0 0 Bowel Movements Output, 2000 Dialysate Output, Urine 300 250 775 750 290 30 Patient 156 lb Weight Physical Exam: General: Well-developed white female in no acute distress Skin: Without rash or jaundice HEENT: Conjunctivae pink, sclerae anicteric, mucous membranes moist Neck: Without masses or thyromegaly, no supraclavicular or cervical adenopathy; there is a right IJ non-tunneled dialysis catheter in place Chest: Clear to P&A Heart: Regular rate and rhythm without S3 or rub Abdomen: Soft and nontender without palpable masses or organomegaly Extremities: Without cyanosis or edema; the right upper arm AVG is without pulse or bruit Neuro: No focal findings, no asterixis or myoclonus Current Medications: Current Medications Sig/Su Start time Last Medication Dose Route Stop Time Status Admin Acetaminophen 650 MG Q6P PRN 05/11 1930 AC PO Acetaminophen 1,000 MG Q6P PRN 05/11 193 AC IV Amlodipine Besylate 10 MG DAILY 05/12 1000 AC 05/13 PO 0917 Aspirin 81 MG DAILY 05/13 1721 AC 05/13 PO 1758 Atorvastatin Calcium 40 MG 1700 05/14 1700 AC PO Calcium Acetate 667 MG WM 05/11 1700 AC 05/13 PO 1623 Diclofenac Sodium 1 CATALINA 4 TIMES/DAY 05/12 1400 AC 05/13 TOP 2120 Epoetin Amanuel 10,000 UNIT .WITH DIALYSIS 05/11 2044 AC IV Ergocalciferol 50,000 IU ONCE A WEEK 05/18 1000 AC PO Heparin Sodium 2,000 UNIT BOLUS ONE 05/14 0730 DC 05/14 (Porcine) IV 05/14 0731 0854 Hydralazine HCl 50 MG Q8 05/13 1530 AC 05/14 PO 0603 Hydralazine HCl 50 MG TID 05/11 2200 DC 05/13 PO 0653 Insulin Aspart 0 TIDAC 05/12 1200 AC 05/12 SC 1707 Lisinopril 40 MG DAILY 05/12 1000 AC 05/13 PO 0917 Metoprolol Tartrate 12.5 MG BID 05/13 2200 AC 05/13 PO 2120 Morphine Sulfate 1 MG Q6-PRN PRN 05/11 1930 AC 05/13 IV 2121 Multivitamins 1 TAB DAILY 05/12 1000 AC 05/13 PO 0917 Ramelteon 8 MG .STK-MED ONE 05/13 2101 DC PO 05/13 210 Ramelteon 8 MG AT BEDTIME PRN 05/11 1815 AC 05/13 PO 2109 Sertraline HCl 50 MG DAILY 05/12 1000 AC 05/13 PO 0917 Warfarin Sodium 5 MG COUMADIN 1700 ONE 05/14 1700 AC PO 05/14 1701 Warfarin Sodium 5 MG .[TUE THUR] 05/14 0800 CAN PO Warfarin Sodium 7.5 MG .[Fri FRI ] 05/14 0800 CAN PO Warfarin Sodium 7.5 MG COUMADIN 1700 ONE 05/13 1700 DC 05/13 PO 05/13 1701 1624 Results Pertinent Lab Results: Laboratory Tests 05/14 05/13 0515 0450 Chemistry Sodium (137 - 145 mmol/L) 137 138 Potassium (3.5 - 5.1 mmol/L) 4.4 4.1 Chloride (98 - 107 mmol/L) 105 104 Carbon Dioxide (22 - 30 mmol/L) 22 23 Anion Gap (5 - 16) 11 11 BUN (7 - 17 mg/dL) 54 H 40 H Creatinine (0.5 - 1.0 mg/dL) 7.0 *H 5.8 *H Estimated GFR (>60 ml/min) 6 L 7 L Glucose (65 - 99 mg/dL) 169 H 150 H Calcium (8.4 - 10.2 mg/dL) 8.9 9.2 Phosphorus (2.5 - 4.5 mg/dL) 5.9 H 5.6 H Magnesium (1.6 - 2.3 mg/dL) 1.9 1.9 Total Bilirubin (0.2 - 1.3 mg/dL) 0.4 0.5 AST (14 - 36 U/L) 17 19 ALT (9 - 52 U/L) 36 33 Troponin I (< 0.11 ng/ml) 0.85 *H Albumin (3.5 - 5.0 g/dL) 3.2 L 3.0 L Coagulation PT (9.4 - 12.5 SEC) 21.0 H 18.0 H INR (0.90 - 1.19) 2.01 H 1.72 H Hematology CBC w Diff NO MAN DIFF REQ NO MAN DIFF REQ WBC (4.8 - 10.8 /CUMM) 8.9 9.1 RBC (4.20 - 5.40 /CUMM) 3.06 L 3.12 L Hgb (12.0 - 16.0 G/DL) 9.0 L 9.3 L Hct (37 - 47 %) 27.9 L 28.2 L MCV (81.0 - 99.0 FL) 91.1 90.5 MCH (27.0 - 31.0 PG) 29.4 29.7 RDW (11.5 - 14.5 %) 17.5 H 18.0 H Plt Count (130 - 400 /CUMM) 323 321 MPV (7.4 - 10.4 FL) 8.2 8.3 Gran % (42.2 - 75.2 %) 71.6 67.1 Lymphocytes % (20.5 - 51.1 %) 14.4 L 18.5 L Monocytes % (1.7 - 9.3 %) 10.2 H 10.9 H Eosinophils % (0 - 5 %) 3.5 2.9 Basophils % (0.0 - 2.0 %) 0.3 0.6 Absolute Granulocytes (1.4 - 6.5 /CUMM) 6.4 6.1 Absolute Lymphocytes (1.2 - 3.4 /CUMM) 1.3 1.7 Absolute Monocytes (0.10 - 0.60 /CUMM) 0.9 H 1.0 H Absolute Eosinophils (0.0 - 0.7 /CUMM) 0.3 0.3 Absolute Basophils (0.0 - 0.2 /CUMM) 0 0.1 PUBS MCHC (33.0 - 37.0 G/DL) 32.3 L 32.8 L 05/12 05/12 05/11 1220 0604 2342 Chemistry Sodium (137 - 145 mmol/L) 139 Potassium (3.5 - 5.1 mmol/L) 3.6 Chloride (98 - 107 mmol/L) 104 Carbon Dioxide (22 - 30 mmol/L) 26 Anion Gap (5 - 16) 9 BUN (7 - 17 mg/dL) 17 Creatinine (0.5 - 1.0 mg/dL) 3.4 H Estimated GFR (>60 ml/min) 14 L Glucose (65 - 99 mg/dL) 104 H Calcium (8.4 - 10.2 mg/dL) 8.8 Phosphorus (2.5 - 4.5 mg/dL) 4.8 H Magnesium (1.6 - 2.3 mg/dL) 1.8 Total Bilirubin (0.2 - 1.3 mg/dL) 0.8 AST (14 - 36 U/L) 29 ALT (9 - 52 U/L) 33 Troponin I (< 0.11 ng/ml) Cancelled 2.35 *H 2.69 *H Albumin (3.5 - 5.0 g/dL) 3.2 L TSH (0.270 - 4.200 uIU/mL) 0.398 Coagulation PT (9.4 - 12.5 SEC) 24.2 H INR (0.90 - 1.19) 2.32 H Hematology CBC w Diff NO MAN DIFF REQ WBC (4.8 - 10.8 /CUMM) 10.7 RBC (4.20 - 5.40 /CUMM) 2.91 L Hgb (12.0 - 16.0 G/DL) 8.6 L Hct (37 - 47 %) 26.6 L MCV (81.0 - 99.0 FL) 91.6 MCH (27.0 - 31.0 PG) 29.7 RDW (11.5 - 14.5 %) 18.3 H Plt Count (130 - 400 /CUMM) 295 MPV (7.4 - 10.4 FL) 8.1 Gran % (42.2 - 75.2 %) 78.3 H Lymphocytes % (20.5 - 51.1 %) 11.8 L Monocytes % (1.7 - 9.3 %) 8.5 Eosinophils % (0 - 5 %) 1.2 Basophils % (0.0 - 2.0 %) 0.2 Absolute Granulocytes (1.4 - 6.5 /CUMM) 8.4 H Absolute Lymphocytes (1.2 - 3.4 /CUMM) 1.3 Absolute Monocytes (0.10 - 0.60 /CUMM) 0.9 H Absolute Eosinophils (0.0 - 0.7 /CUMM) 0.1 Absolute Basophils (0.0 - 0.2 /CUMM) 0 PUBS MCHC (33.0 - 37.0 G/DL) 32.4 L 05/11 05/11 05/11 1710 1410 1150 Chemistry Sodium (137 - 145 mmol/L) 141 Potassium (3.5 - 5.1 mmol/L) 4.0 Chloride (98 - 107 mmol/L) 103 Carbon Dioxide (22 - 30 mmol/L) 25 Anion Gap (5 - 16) 12 BUN (7 - 17 mg/dL) 28 H Creatinine (0.5 - 1.0 mg/dL) 4.2 H Estimated GFR (>60 ml/min) 11 L Glucose (65 - 99 mg/dL) 174 H Calcium (8.4 - 10.2 mg/dL) 8.2 L Phosphorus (2.5 - 4.5 mg/dL) 7.0 H Magnesium (1.6 - 2.3 mg/dL) 1.9 Total Bilirubin (0.2 - 1.3 mg/dL) 0.4 AST (14 - 36 U/L) 34 ALT (9 - 52 U/L) 43 Troponin I (< 0.11 ng/ml) 1.75 *H Albumin (3.5 - 5.0 g/dL) 3.1 L Coagulation PT (9.4 - 12.5 SEC) 25.5 H INR (0.90 - 1.19) 2.45 H APTT (25 - 37 SEC) 35 Cancelled Hematology CBC w Diff MAN DIFF ORDERED WBC (4.8 - 10.8 /CUMM) 18.2 H RBC (4.20 - 5.40 /CUMM) 2.00 L Hgb (12.0 - 16.0 G/DL) 6.1 *L Hct (37 - 47 %) 19.1 *L MCV (81.0 - 99.0 FL) 95.5 MCH (27.0 - 31.0 PG) 30.5 RDW (11.5 - 14.5 %) 17.0 H Plt Count (130 - 400 /CUMM) 299 MPV (7.4 - 10.4 FL) 8.1 Gran % (42.2 - 75.2 %) 94.1 H Lymphocytes % (20.5 - 51.1 %) 2.6 L Monocytes % (1.7 - 9.3 %) 3.3 Eosinophils % (0 - 5 %) 0 Basophils % (0.0 - 2.0 %) 0 L Absolute Granulocytes (1.4 - 6.5 /CUMM) 17.2 H Absolute Lymphocytes (1.2 - 3.4 /CUMM) 0.5 L Absolute Monocytes (0.10 - 0.60 /CUMM) 0.6 Absolute Eosinophils (0.0 - 0.7 /CUMM) 0 Absolute Basophils (0.0 - 0.2 /CUMM) 0 Hypochromic-Microcytic 1+ Poikilocytosis 1+ Anisocytosis 2+ PUBS MCHC (33.0 - 37.0 G/DL) 31.9 L
--- NOTE | 2016-05-14 12:15 | NUR ---
PREOP OR SCRUB DONE
[2016-05-14 12:27] VITALS: BP 166/60
[2016-05-14 16:00] VITALS: BP 140/60
--- NOTE | 2016-05-14 19:22 | Transfer of Care Summary ---
Hospital Course Course Hospital Course: This is a 66-year-old female with past medical history significant for ESRD on hemodialysis, hypertension, diabetes, who was brought in for chief complaint of acute shortness of breath and bradycardia accompanied by unresponsiveness during her hemodialysis. Of note, during admission is noted that her dialysis access has clotted. Patient got IJ non-tunnelled cath placed on 05/11/2016. She is due for renal transplant on May 28. She is going for fistulogram on 05/14/[address] Palencia. Significant Procedures: Fistulogram on 05/14/2015 Pertinent Lab Results: Vital Signs Date Time Temp Pulse Resp B/P Pulse O2 O2 Flow FiO2 Ox Delivery Rate 05/14 1423 70 170/60 05/14 1227 98.5 65 18 166/60 95 Room Air Intake & Output 05/14 1600 Intake Total Output Total 1250 Balance -1250 Output, 1000 Dialysate Output, Urine 250 Patient 69.4 kg Weight Assessment/Plan: PLAN Respiratory/ID: RESOLVED. Initially there was concern that patient might have ARDS/pulmonary edema/pneumonia. She was started on Ceftriaxone and vancomycin and subsequently switched to Ceftaz. Patient has been afebrile, white count 9.0 today; repeat chest x-ray yesterday showed dissolution of infiltrates and low probability of pneumonia. * Keep off abx * Keep O2> 92% * We will follow pancx results, negative so far * Negative swab for influenza CVS: RESOLVED.Of note, during this admission patient had troponin up to 2.69 subsequently trended down to 2.35 and on 05/13 at .85. She did not have any accompanying EKG changes. Hemodynamically stable. Possible etiology of elevated troponins include and ischemia secondary to severe anemia and ESRD with decreased clearance of the troponins. She was transfused 2 units PRBCs on 05/11 and subsequently hemodialyzed. Today H&H at 9.0, which is up from 6.7 at admission. She will require outpatient stress test/work up prior to her renal transplant. * We will monitor hemodynamics status * Echocardiogram showed EF of 50. * Cardiology is already on board * Heme: She is on warfarin for a coagulopathy which results in recurrent clots in her AV fistula. As such, we will continue warfarin. Today INR at 2.01 * We will repeat CBC daily * We will consult vascular surgery * Continue warfarin; MONITOR INR * FOBT-Guiac all stool-MONITOR FOR OCCULT GI LOSS Metabolic: * Patient has end-stage renal disease, due for dialysis today.(T/) * Monitor ins/outs * Pt NPO currently--RESTART RENAL DIET AFTER FISTULOGRAM Neuro: Stable. We'll continue to monitor Endocrine: Patient complained of feeling cold all the time. Most likely secondary to anemia. TSH level: 0.398 within normal limits. Renal: Pt ESRD. Due for dialysis today. Getting fistulogram for clotted l. arm access on 05/14.
--- NOTE | 2016-05-14 20:20 | Operative Report ---
Operative/Inv Procedure Report Surgery Date: 05/14/16 Name of Procedure: Right arm AV graft cutdown Right arm fistulogram Thrombolyzes of right arm AV graft Thrombectomy of right arm AV graft Angioplasty of proximal and mid AV graft Pre-Operative Diagnosis: Thrombosed right arm AV graft Post-Operative Diagnosis: Same Estimated Blood Loss: less than 50ml Surgeon/Double End Production Grinder: MERRITT WEBER MD/JANAE GARCIA MD Anesthesia: moderate sedation Operative/Procedure Note Note: Patient is a pleasant 66-year-old left-handed lady who at an outside institution underwent right arm AV graft due to inadequate vein. This access has been intervened multiple times. These interventions included thrombectomy and thrombolysis as well as stent placement. 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 On her last dialysis they found that the axis was thrombosed. While at [facility] on this admission, a temporary IJ catheter was placed and she has been getting dialysis through that catheter. The patient was scheduled for right arm fistulogram and thrombolyzes and thrombectomy. The nature of the procedure including is possible complications including but not limited to bleeding, infection, clots, injury to vessels, need for re-intervention were discussed. An informed consent was obtained. Patient was taken to the operating room and placed supine on the table. Preoperative antibiotic had been started. After satisfactory induction of sedation, the patient was prepped and draped in standard surgical fashion. Using a 15 blade, a small transverse incision was made about 3 fingerbreadths from the arterial anastomosis. The incision was carried down through the subcutaneous tissue using electrocautery. Once the graft was encountered, sharp dissection with Metzenbaum scissors continued. Proximal and distal control were obtained with loosely placed vessel loops. Of note, the patient's anticoagulation with Coumadin had not been stopped. Then using a micropuncture needle, the graft was entered. A micropuncture wire was advanced into the graft and it was looped due to thrombus. Then the micropuncture sheath was advanced over the wire. There was difficulty On removal of the micropuncture wire and the dilator as the end of the wire was uncoiled and when pulled out, a small piece of wire remained in the graft. With the aid of a glide catheter, a [place] wire was advanced into the venous outflow. Then a 5 Lithuanian Amie over -the-wire balloon was advanced over the wire. With the balloon inflated, the balloon was retracted. The idea was to pull the piece of wire back close to the sheath and removed the wire by grabbing it with a snap. This was accomplished. Then the 6 Lithuanian sheath with was placed back in the access site. On the initial fistulogram, there was small amount of thrombus in the mid segment of the graft as well as a short segment tight stenosis. 1 mg of TPA was administered into the AV graft. Then a 5 x 60 mm balloon followed by 7 x 60 mm balloon was advanced over the wire and the entire AV graft was angioplastied with a goal of macerating the thrombus. Then the slko-mcw-slir Amie balloon was advanced and placed just through the wire into the venous outflow. Post thrombolyzes and thrombectomy fistulogram showed patent AV graft with residual mid graft stenosis. There is also residual stenosis in the stent which was previously placed by the previous interventionalists. Then the sheath was removed with proximal and distal control. The sheath was then placed through the same puncture and directed in a retrograde fashion. A fistulogram showed patent AV graft and anastomosis. However there was tight stenosis just distal to the arterial anastomosis. The artery was of a small caliber. Then the Amie balloon was advanced over the wire was pulled back into the AV graft. The stenosis in the proximal AV graft was then angioplastied using 5 x 20 mm balloon. Post angioplasty, thrombolysis and thrombectomy fistulogram showed patent AV graft. A weakly palpable thrill over the graft. The puncture site was then closed with 2 interrupted 5-0 Prolene suture. The small incision was then closed with interrupted 3-0 Vicryl suture in a subdermal fashion. The skin was then closed with 4-0 Monocryl suture in a subcuticular fashion. Steri- Strips and sterile dressings were applied. There was palpable radial pulse after the procedure and no evidence of hematoma. She tolerated the procedure well and was taken to the PACU in stable condition.
--- NOTE | 2016-05-14 21:01 | NUR ---
PT TAKEN TO OR AT 1700. THEN TO BE TRANSFERRED TO ROOM 185-1. AT BEDSIDE PROVIDING SUPPPORT. REPORT CALLED TO SIVA
--- NOTE | 2016-05-14 22:11 | RADIOLOGY REPORT ---
EXAMINATION: CR humerus CLINICAL INFORMATION: Right arm fistula. Verbal order per Dr. Mason Palencia. COMPARISON: None TECHNIQUE: Multiple fluoroscopic cine images were submitted as part of the right upper arm fistulogram performed by Dr. Palencia.. 12 minutes 20 seconds fluoroscopy time provided. FINDINGS/IMPRESSION: Multiple fistulogram images were submitted as part of the study performed by Dr. Palencia. The stent is patent. There is a area of mild narrowing just proximal to the stent which is less pronounced on the subsequent images, possibly treated.
[2016-05-14 23:00] VITALS: BP 140/60
[2016-05-15 05:31] VITALS: BP 134/56
--- NOTE | 2016-05-15 05:39 | NUR ---
PT HAS 50MG PO HYDRALAZINE ORDER IN PLACE FOR 0600. AT 0530 BP 134/56 HR 47-50S. MD SILVA PAGED AND SHE STATED TO HOLD MED FOR NOW UNTIL HR STAYS IN THE 60S. ON THE MONITOR, PT HR IS STAYING BETWEEN 48-55. WILL CTM.
--- NOTE | 2016-05-15 07:54 | PN- Housestaff ---
[facility] 05/15/16 0754: Subjective Follow-up For: Thrombosed right arm AV graft S/P Thrombolyzes of right arm AV graft , Thrombectomy of right arm AV graft, Angioplasty of proximal and mid AV graft Tele-Events Since Last Visit: Bradycardia, no other events. Subjective: Patient seen and examined this morning. She was lying comfortably in bed in no acute distress. She underwent Thrombectomy of right arm AV graft and angioplasty of proximal and mid AV graft. Procedure went uneventful, scheduled for right upper extremity ultrasound to ensure AV fistula patency. Remains afebrile, the right is within normal limits, tolerating by mouth intake well, hemoglobin low but stable. No other complaints. Review of Systems Constitutional: Denies: chills, fever. Cardiovascular: Denies: chest pain, palpitations. Respiratory: Denies: cough, short of breath, sputum production. Gastrointestinal: Denies: abdominal pain, constipation, diarrhea, nausea, vomiting. Genitourinary: Denies: dysuria, frequency. Objective Last 24 Hrs of Vital Signs/I&O Vital Signs Date Time Temp Pulse Resp B/P Pulse O2 O2 Flow FiO2 Ox Delivery Rate 05/15 1306 58 130/50 05/15 0856 58 130/50 05/15 0856 58 130/50 05/15 0856 58 130/50 05/15 0802 98.3 58 18 130/50 99 Nasal 2.0L Cannula 05/15 0531 52 134/56 05/15 0000 Nasal 2.0L Cannula 05/14 2300 98.5 61 20 140/60 98 05/14 2240 70 140/60 05/14 2239 70 140/60 05/14 1600 97.9 70 24 140/60 95 Room Air 05/14 1423 70 170/60 Intake & Output 05/15 1600 05/15 0800 05/15 0000 Intake Total 150 100 Output Total 50 50 Balance 100 50 Intake, Oral 150 100 Number 0 Bowel Movements Output, Urine 50 50 Patient 70.023 kg Weight Physical Exam General Appearance: Alert, Oriented X3, Cooperative, No Acute Distress Cardiovascular: Regular Rate, Normal S1, Normal S2, No Murmurs Lungs: Clear to Auscultation, Normal Air Movement Abdomen: Normal Bowel Sounds, Soft, No Tenderness Extremities: No Clubbing, No Cyanosis, No Edema Current Medications: Current Medications Sig/Su Start time Last Medication Dose Route Stop Time Status Admin Acetaminophen 650 MG Q6P PRN 05/11 193 AC PO Acetaminophen 1,000 MG Q6P PRN 05/11 193 AC IV Alteplase, 4 MG .STK-MED ONE 05/14 1507 DC Recombinant IV 05/14 1508 Amlodipine Besylate 10 MG DAILY 05/12 1000 AC 05/15 PO 0856 Aspirin 81 MG DAILY 05/13 1721 AC 05/15 PO 1306 Atorvastatin Calcium 40 MG 1700 05/14 1700 AC 05/14 PO 2238 Calcium Acetate 667 MG WM 05/11 1700 AC 05/15 PO 1306 Dexamethasone 4 MG .STK-MED ONE 05/14 1721 DC IM 05/14 1722 Diclofenac Sodium 1 CATALINA 4 TIMES/DAY 05/12 1400 AC 05/15 TOP 1307 Epoetin Amanuel 10,000 UNIT .WITH DIALYSIS 05/11 2044 AC IV Ergocalciferol 50,000 IU ONCE A WEEK 05/18 1000 AC PO Fentanyl Citrate 250 MCG .STK-MED ONE 05/14 1720 DC IM 05/14 1721 Hydralazine HCl 50 MG Q8 05/13 1530 AC 05/15 PO 1306 Insulin Aspart 0 TIDAC 05/12 1200 AC 05/15 SC 1306 Ketamine HCl 50 MG .STK-MED ONE 05/14 1721 DC IM 05/14 1722 Lisinopril 40 MG DAILY 05/12 1000 AC 05/15 PO 0856 Metoprolol Tartrate 12.5 MG BID 05/13 2200 AC 05/15 PO 0856 Midazolam HCl 2 MG .STK-MED ONE 05/14 1721 DC IM 05/14 1722 Morphine Sulfate 1 MG Q6-PRN PRN 05/11 1930 AC 05/13 IV 2121 Multivitamins 1 TAB DAILY 05/12 1000 AC 05/15 PO 1306 Ondansetron HCl 8 MG .STK-MED ONE 05/14 1721 DC IM 05/14 1722 Polyethylene Glycol 17 GM DAILY 05/15 1333 AC PO Ramelteon 8 MG AT BEDTIME PRN 05/11 1815 AC 05/13 PO 2109 Senna/Docusate Sodium 1 TAB BID PRN 05/15 1345 AC PO Sertraline HCl 50 MG DAILY 05/12 1000 AC 05/15 PO 1305 Warfarin Sodium 5 MG COUMADIN 1700 ONE 05/14 1700 DC 05/14 PO 05/14 1701 2237 Last 24 Hrs of Lab/Anupam Results Last 24 Hrs of Labs/Mics: Laboratory Tests 05/15/16 0650: Anion Gap 11, Estimated GFR 9 L, Glucose 273 H, Calcium 8.5, Phosphorus 7.2 H , Magnesium 2.0, Total Bilirubin 0.3, AST 16, ALT 32, Albumin 3.0 L, PT 25.3 H , INR 2.43 H, CBC w Diff MAN DIFF ORDERED, RBC 3.07 L, MCV 92.7, MCH 29.5, RDW 17.8 H, MPV 8.4, Gran % 88.6 H, Lymphocytes % 6.1 L, Monocytes % 5.3, Eosinophils % 0, Basophils % 0 L, Absolute Granulocytes 8.6 H, Absolute Lymphocytes 0.6 L, Absolute Monocytes 0.5, Absolute Eosinophils 0, Absolute Basophils 0, Platelet Estimate VERIFIED BY SMEAR, Polychromasia 1+, Poikilocytosis 1+, Anisocytosis 1+, PUBS MCHC 31.8 L Assessment/Plan Assessment: This is a 66-year-old female with past medical history significant for ESRD on hemodialysis, hypertension, diabetes, who was brought in for chief complaint of acute shortness of breath and bradycardia accompanied by unresponsiveness during her hemodialysis. Of note, during admission is noted that her dialysis access has clotted. Patient got IJ non-tunnelled cath placed on 05/11/2016. She is due for renal transplant on May 28. Patient was transferred from ICU overnight, Initially there was concern that patient might have ARDS/pulmonary edema/pneumonia. She was started on Ceftriaxone and vancomycin and subsequently switched to Ceftaz which has been discontinued. Patient has been afebrile, white count stable; saturating well on room air. Repeat chest x-ray yesterday showed dissolution of infiltrates and low probability of pneumonia, chris cultures no growth to date. Increased troponins: Resolved, upon admission up to 2.69 subsequently trended down. No EKG changes. Hemodynamically stable. Possible etiology of elevated troponins, likely demand ischemia secondary to severe anemia and ESRD with decreased clearance of the troponins. She was transfused 2 units PRBCs on 05/11 and subsequently hemodialyzed. H&H now low but stable, which is up from 6.7 at admission. She will require outpatient stress test/work up prior to her renal transplant. FOBT-Guiac all stool. Cardiology is already on board, no recommendation of inpatient interventions at this point, patient would likely need a repeat nuclear stress test or possibly cardiac catheterization prior to renal transplant which always be done as an outpatient. She is aware of this. History of DVT currently on Coumadin: As per patient she has been on warfarin for the past 4 months, to be dosed as per INR. End-stage renal disease on dialysis: Patient has end-stage renal disease, due for dialysis today. Next session tomorrow to AV fistula, one successful IJ can be removed. DVT prophylaxis patient is on warfarin CODE STATUS full code Problem List: 1. End stage kidney disease 2. Anemia Pain Ratin Pain Location: None Pain Goal: Remain pain free Pain Plan: Tylenol Morphine Tomorrow's Labs & Rationales: CBC for H&H monitoring BEP for lites monitoring INR for Coumadin dosing. Consulting Request: Consulting Specialty: Cardiology BILL LANCE MD 05/15/162053: Attending Review Statement Attending Statement Attending MD Statement: examined this patient, discuss w/resident/PA/BUTT TRIMMER, agreed w/resident/PA/BUTT TRIMMER, reviewed EMR data (avail), discussed with nursing, discussed with case mgmt, amended to note Attending Assessment/Plan: The patient was seen and discussed with house staff. Appreciate pulmonary follow -up. Agree with plan of care as outlined.
[2016-05-15 08:02] VITALS: BP 130/50
[2016-05-15 08:29] LABS: ABSOLUTE BASOPHIL COUNT 0 /CUMM (0.0-0.2); ABSOLUTE EOSINOPHIL COUNT 0 /CUMM (0.0-0.7); ABSOLUTE GRANULOCYTE CT 8.6 /CUMM (1.4-6.5); ABSOLUTE LYMPH COUNT 0.6 /CUMM (1.2-3.4); ABSOLUTE MONOCYTE COUNT 0.5 /CUMM (0.10-0.60); BASOPHIL % 0 % (0.0-2.0); EOSINOPHIL % 0 % (0-5); GRANULOCYTE % 88.6 % (42.2-75.2); HEMATOCRIT 28.5 % (37-47); MEAN CORPUSCULAR HGB 29.5 PG (27.0-31.0); MEAN CORPUSCULAR HGB CONC 31.8 G/DL (33.0-37.0); MEAN CORPUSCULAR VOLUME 92.7 FL (81.0-99.0); MEAN PLATELET VOLUME 8.4 FL (7.4-10.4); PLATELET COUNT 322 /CUMM (130-400); RBC DISTRIBUTION WIDTH 17.8 % (11.5-14.5); RED BLOOD CELL CT 3.07 /CUMM (4.20-5.40); WHITE BLOOD CELL COUNT 9.8 /CUMM (4.8-10.8)
[2016-05-15 08:30] LABS: PT 25.3 SEC (9.4-12.5)
--- NOTE | 2016-05-15 11:48 | PN- Pulmonary ---
Subjective HPI/Critical Care Issues: pt seen and examined transferred out of icu hemodynamically stable and afebrile has a thrill and a bruit alongside right fistula s/p revision Objective Current Medications: Current Medications Sig/Su Start time Last Medication Dose Route Stop Time Status Admin Acetaminophen 650 MG Q6P PRN 05/11 1929 AC PO Acetaminophen 1,000 MG Q6P PRN 05/11 1929 AC IV Alteplase, 4 MG .STK-MED ONE 05/14 1507 DC Recombinant IV 05/14 1508 Amlodipine Besylate 10 MG DAILY 05/12 1000 AC 05/15 PO 0856 Aspirin 81 MG DAILY 05/13 1721 AC 05/14 PO 2235 Atorvastatin Calcium 40 MG 1700 05/14 1700 AC 05/14 PO 2238 Calcium Acetate 667 MG WM 05/11 1700 AC 05/15 PO 0856 Dexamethasone 4 MG .STK-MED ONE 05/14 1721 DC IM 05/14 1722 Diclofenac Sodium 1 CATALINA 4 TIMES/DAY 05/12 1400 AC 05/15 TOP 0857 Epoetin Amanuel 10,000 UNIT .WITH DIALYSIS 05/11 2044 AC IV Ergocalciferol 50,000 IU ONCE A WEEK 05/18 1000 AC PO Fentanyl Citrate 250 MCG .STK-MED ONE 05/14 1720 DC IM 05/14 1721 Hydralazine HCl 50 MG Q8 05/13 1530 AC 05/14 PO 2239 Insulin Aspart 0 TIDAC 05/12 1200 AC 05/15 SC 0855 Ketamine HCl 50 MG .STK-MED ONE 05/14 1721 DC IM 05/14 1722 Lisinopril 40 MG DAILY 05/12 1000 AC 05/15 PO 0856 Metoprolol Tartrate 12.5 MG BID 05/13 2200 AC 05/15 PO 0856 Midazolam HCl 2 MG .STK-MED ONE 05/14 1721 DC IM 05/14 1722 Morphine Sulfate 1 MG Q6-PRN PRN 05/11 1930 AC 05/13 IV 2121 Multivitamins 1 TAB DAILY 05/12 1000 AC 05/14 PO 2235 Ondansetron HCl 8 MG .STK-MED ONE 05/14 1721 DC IM 05/14 1722 Ramelteon 8 MG AT BEDTIME PRN 05/11 1815 AC 05/13 PO 2109 Sertraline HCl 50 MG DAILY 05/12 1000 AC 05/14 PO 2235 Warfarin Sodium 5 MG COUMADIN 1700 ONE 05/14 1700 DC 05/14 PO 05/14 1701 2237 Vital Signs & I&O Last 24 Hrs of Vitals and I&O: Vital Signs Date Time Temp Pulse Resp B/P Pulse O2 O2 Flow FiO2 Ox Delivery Rate 05/15 0856 58 130/50 05/15 0856 58 130/50 05/15 0856 58 130/50 05/15 0802 98.3 58 18 130/50 99 Nasal 2.0L Cannula 05/15 0531 52 134/56 05/15 0000 Nasal 2.0L Cannula 05/14 2300 98.5 61 20 140/60 98 05/14 2240 70 140/60 05/14 2239 70 140/60 05/14 1600 97.9 70 24 140/60 95 Room Air 05/14 1423 70 170/60 05/14 1227 98.5 65 18 166/60 95 Room Air Intake & Output 05/15 1600 05/15 0800 05/15 0000 Intake Total 150 100 Output Total 50 50 Balance 100 50 Intake, Oral 150 100 Number 0 Bowel Movements Output, Urine 50 50 Patient 154 lb Weight Exam Other Physical Findings: General - Alert, awake and oriented HEENT - ncat Cardiovascular - S1, S2, +murmur Lungs - bilateral rhonchi anterior chest Abdomen - soft, bowel sounds positive, no tenderness Extremities - no edema, bruit alongside right avf Results Last 24 Hrs of Lab Results: Laboratory Tests 05/15/16 0650: Anion Gap 11, Estimated GFR 9 L, Glucose 273 H, Calcium 8.5, Phosphorus 7.2 H , Magnesium 2.0, Total Bilirubin 0.3, AST 16, ALT 32, Albumin 3.0 L, PT 25.3 H , INR 2.43 H, CBC w Diff MAN DIFF ORDERED, RBC 3.07 L, MCV 92.7, MCH 29.5, RDW 17.8 H, MPV 8.4, Gran % 88.6 H, Lymphocytes % 6.1 L, Monocytes % 5.3, Eosinophils % 0, Basophils % 0 L, Absolute Granulocytes 8.6 H, Absolute Lymphocytes 0.6 L, Absolute Monocytes 0.5, Absolute Eosinophils 0, Absolute Basophils 0, Platelet Estimate VERIFIED BY SMEAR, Polychromasia 1+, Poikilocytosis 1+, Anisocytosis 1+, PUBS MCHC 31.8 L Impression/Plan Impression/Plan Impression/Plan: Impression 66-year-old woman - End-stage renal disease on dialysis - Chronic severe anemia appears stable with a hemoglobin of 7.2 baseline 6.1 last outpatient read per nephrology - Revised AV graft Plan - if avg is functional, would remove tmp - hd per renal - cardiology f/u - outpt ischemic w/u per cardiology - call with any questions
--- NOTE | 2016-05-15 12:16 | ULTRASOUND REPORT ---
EXAMINATION: RIGHT UPPER EXTREMITY VENOUS ULTRASOUND CLINICAL INFORMATION: Right arm pain and swelling COMPARISON: None. TECHNIQUE: Doppler spectral analysis and color flow Doppler imaging was performed of the right upper extremity. Compression and augmentation maneuvers were performed. FINDINGS: The right internal jugular vein, subclavian vein, axillary vein, brachial vein, basilic vein, cephalic vein, and visualized forearm veins were well-identified and normal. They demonstrate normal compressibility and color fill-in. The patient's AV fistula is also widely patent with a small amount of residual thrombus present in the proximal aspect of the graft. IMPRESSION: No evidence for right upper extremity deep vein thrombosis.
--- NOTE | 2016-05-15 13:14 | PN- Cardiology ---
Subjective Subjective: Feels well. No complaints today. She is s/p fistula revision. Objective Vital Signs and I&Os Vital Signs Date Time Temp Pulse Resp B/P Pulse O2 O2 Flow FiO2 Ox Delivery Rate 05/15 1306 58 130/50 05/15 0856 58 130/50 05/15 0856 58 130/50 05/15 0856 58 130/50 05/15 0802 98.3 58 18 130/50 99 Nasal 2.0L Cannula 05/15 0531 52 134/56 05/15 0000 Nasal 2.0L Cannula 05/14 2300 98.5 61 20 140/60 98 05/14 2240 70 140/60 05/14 2239 70 140/60 05/14 1600 97.9 70 24 140/60 95 Room Air 05/14 1423 70 170/60 Intake & Output 05/15 1600 05/15 0800 05/15 0000 05/14 1600 05/14 0800 05/14 0000 Intake Total 150 100 240 335 Output Total 50 50 1250 300 250 Balance 100 50 -1250 -60 85 Intake, IV 20 Intake, Oral 150 100 240 315 Number 0 Bowel Movements Output, 1000 Dialysate Output, Urine 50 50 250 300 250 Patient 154 lb 153 lb 156 lb Weight Physical Exam: General: no apparent distress. Alert. Eyes: No obvious scleral icterus. HEENT: No abnormal jugular venous pulsations. Cardiovascular: Normal intensity S1/S2. 3/6 systolic murmur, dialysis catheter noted. Respiratory: No rales or rhonchi Abdomen: Soft, nontender with no guarding or rebound tenderness. Musculoskeletal: No clubbing or cyanosis noted, right sided AV fistula Skin: Warm Neurologic: No gross focal deficits noted. Current Medications: Current Medications Sig/Su Start time Last Medication Dose Route Stop Time Status Admin Acetaminophen 650 MG Q6P PRN 05/11 1929 AC PO Acetaminophen 1,000 MG Q6P PRN 05/11 1929 AC IV Alteplase, 4 MG .STK-MED ONE 05/14 1507 DC Recombinant IV 05/14 1508 Amlodipine Besylate 10 MG DAILY 05/12 1000 AC 05/15 PO 0856 Aspirin 81 MG DAILY 05/13 1721 AC 05/15 PO 1306 Atorvastatin Calcium 40 MG 1700 05/14 1700 AC 05/14 PO 2238 Calcium Acetate 667 MG WM 05/11 1700 AC 05/15 PO 1306 Dexamethasone 4 MG .STK-MED ONE 05/14 1721 DC IM 05/14 1722 Diclofenac Sodium 1 CATALINA 4 TIMES/DAY 05/12 1400 AC 05/15 TOP 1307 Epoetin Amanuel 10,000 UNIT .WITH DIALYSIS 05/11 2044 AC IV Ergocalciferol 50,000 IU ONCE A WEEK 05/18 1000 AC PO Fentanyl Citrate 250 MCG .STK-MED ONE 05/14 1720 DC IM 05/14 1721 Hydralazine HCl 50 MG Q8 05/13 1530 05/15 PO 1306 Insulin Aspart 0 TIDAC 05/12 1200 AC 05/15 SC 1306 Ketamine HCl 50 MG .STK-MED ONE 05/14 1721 DC IM 05/14 1722 Lisinopril 40 MG DAILY 05/12 1000 AC 05/15 PO 0856 Metoprolol Tartrate 12.5 MG BID 05/13 2200 AC 05/15 PO 0856 Midazolam HCl 2 MG .STK-MED ONE 05/14 1721 DC IM 05/14 1722 Morphine Sulfate 1 MG Q6-PRN PRN 05/11 1930 AC 05/13 IV 2121 Multivitamins 1 TAB DAILY 05/12 1000 AC 05/15 PO 1306 Ondansetron HCl 8 MG .STK-MED ONE 05/14 1721 DC IM 05/14 1722 Ramelteon 8 MG AT BEDTIME PRN 05/11 1815 AC 05/13 PO 2109 Sertraline HCl 50 MG DAILY 05/12 1000 05/15 PO 1305 Warfarin Sodium 5 MG COUMADIN 1700 ONE 05/14 1700 DC 05/14 PO 05/14 1701 2237 Results Last 48 Hrs of Labs/Mics: Laboratory Tests 05/15/16 0650: Anion Gap 11, Estimated GFR 9 L, Glucose 273 H, Calcium 8.5, Phosphorus 7.2 H , Magnesium 2.0, Total Bilirubin 0.3, AST 16, ALT 32, Albumin 3.0 L, PT 25.3 H , INR 2.43 H, CBC w Diff MAN DIFF ORDERED, RBC 3.07 L, MCV 92.7, MCH 29.5, RDW 17.8 H, MPV 8.4, Gran % 88.6 H, Lymphocytes % 6.1 L, Monocytes % 5.3, Eosinophils % 0, Basophils % 0 L, Absolute Granulocytes 8.6 H, Absolute Lymphocytes 0.6 L, Absolute Monocytes 0.5, Absolute Eosinophils 0, Absolute Basophils 0, Platelet Estimate VERIFIED BY SMEAR, Polychromasia 1+, Poikilocytosis 1+, Anisocytosis 1+, PUBS MCHC 31.8 L 05/14/16 0515: Anion Gap 11, Estimated GFR 6 L, Glucose 169 H, Calcium 8.9, Phosphorus 5.9 H , Magnesium 1.9, Total Bilirubin 0.4, AST 17, ALT 36, Albumin 3.2 L, PT 21.0 H , INR 2.01 H, CBC w Diff NO MAN DIFF REQ, RBC 3.06 L, MCV 91.1, MCH 29.4, RDW 17.5 H, MPV 8.2, Gran % 71.6, Lymphocytes % 14.4 L, Monocytes % 10.2 H, Eosinophils % 3.5, Basophils % 0.3, Absolute Granulocytes 6.4, Absolute Lymphocytes 1.3, Absolute Monocytes 0.9 H, Absolute Eosinophils 0.3, Absolute Basophils 0, PUBS MCHC 32.3 L Recent Imaging Studies: Tele: shows SR/SB without prolonged pauses Doppler IMPRESSION: No evidence for right upper extremity deep vein thrombosis. Assessment/Plan Assessment/Plan 1. Acute hypoxic/hypercapnic respiratory failure with volume overload, - improved 2. Elevated troponin consistent with non-ST elevation myocardial infarction versus demand ischemia in the setting of severe anemia 3. Transient bradycardia-reportedly, the patient had transient sinus bradycardia at the time of the initial event. I suspect this was related to the underlying respiratory issues. She has had no further evidence of bradycardia. 3. Ventricular ectopy-rare ventricular ectopy noted on the monitor at the present time, continue to monitor 4. End-stage renal disease on hemodialysis 5. Acute on Chronic anemia 6. Nonfunctioning dialysis graft right arm with hx of thrombosis, on Coumadin, s/p revision 7. Mild aortic stenosis and mild mitral stenosis noted on echocardiogram Doing well s/p fistula intervention by Vascular. Anticoagulation per Vascular. Continue on ASA/statin/B-carlene. BP is stable. As the patient is currently asymptomatic were are not planning on inpatient cardiac catheterization at this time but she will certainly need either a repeat nuclear stress test or possibly a cardiac catheterization in the future prior to being considered for renal transplant. Follow-up in our office within 1 week of discharge. Bruno Ulrich MD FAC Continue telemetry? No
--- NOTE | 2016-05-15 15:23 | Discharge Summary ---
Visit Information Visit Dates Admission Date: 05/11/16 Discharge Date: 05/16/16 Hospital Course Course Attending Physician: BILL LANCE MD Primary Care Physician: TIA MORTENSEN MD Consulting Request: Consulting Specialty: Cardiology Hospital Course: This is a 66-year-old female with past medical history significant for ESRD on hemodialysis, hypertension, diabetes, who was brought in for chief complaint of acute shortness of breath and bradycardia accompanied by unresponsiveness during her hemodialysis. Of note, during admission is noted that her dialysis access has clotted. Patient got IJ non-tunnelled cath placed on 05/11/2016. She is due for renal transplant on May 28. Patient was initially monitored in ICU, there was concern that patient might have ARDS/pulmonary edema/pneumonia. She was started on Ceftriaxone and vancomycin and subsequently switched to Ceftaz which has been discontinued. Patient has been afebrile, white count stable; saturating well on room air. Repeat chest x-ray yesterday showed dissolution of infiltrates and low probability of pneumonia, chris cultures no growth to date. She had increased troponins upon admission up to 2.69 subsequently trended down. No EKG changes. Hemodynamically stable. Possible etiology of elevated troponins include and ischemia secondary to severe anemia and ESRD with decreased clearance of the troponins. She was transfused 2 units PRBCs on 05/11 and subsequently hemodialyzed. H&H now low but stable, which is up from 6.7 at admission. She will require outpatient stress test/work up prior to her renal transplant. FOBT-Guiac all stool. Cardiology was on board, no recommendation of inpatient interventions at this point, patient would likely need a repeat nuclear stress test or possibly cardiac catheterization prior to renal transplant which can be done as an outpatient. She is aware of this. As per patient she has been on warfarin for the past 4 months for DVT prophylaxis, Coumadin dose as per daily INRs. Patient has end-stage renal disease currently on dialysis awaiting renal transplant, received dialysis through IJ today, as no good flow was obtained through AV fistula. Patient to be discharge today with nereyda catheter as per nephrology recs, she will see IR physician in [facility] and either quniton catherter will be removed or replaced dependent on AVG patency. Patient informed not to take coumadin today and INR will be checked by IDR tomoroow. Also, CHARLI was performed for stool guaic(no stool in rectum, sample couldnt be obtained for testing of ocult blood in stool), as patient did not have bowel movement and she refused to take bowel regimen, she has been advised to follow up with PCP and get CBC repeated to ensure H&h stability upon discharge. Patient remains in agreement. DVT prophylaxis patient is on warfarin CODE STATUS full code Complications: none Allergies: Coded Allergies: No Known Allergies (05/11/16) Significant Procedures: Right arm AV graft cutdown Right arm fistulogram Thrombolyzes of right arm AV graft Thrombectomy of right arm AV graft Angioplasty of proximal and mid AV graft Disposition Summary Disposition Principal Diagnosis: Increased troponin, bradycardia, unresponsive during hemodialysis Additional Diagnosis: Thrombosed right arm AV graft Discharge Disposition: home or self care Discharge Instructions General Discharge Information Code Status: Full Code Patient's Diet: Renal dialysis diet Patient's Activity: As tolerated Follow-Up Instructions/Appts: Please follow-up with mast maker Mele Ulrich MD in one week, as it has been recommended by cardiology that you might need a repeat nuclear stress test or possibly cardiac catheterization prior to renal transplant. Medications at Discharge Discharge Medications: Stop taking the following medications: Warfarin Sodium (Coumadin) 5 MG TABLET ORAL Continue taking these medications: Amlodipine Besylate (Amlodipine Besylate) 10 MG TABLET 1 Tablet ORAL DAILY Comments: Last Taken: 05/16/16 Time: 11:30AM Carvedilol (Carvedilol) 3.125 MG TABLET 1 Tablet ORAL TWICE DAILY Comments: NOT GIVEN IN HOSPITAL Multivitamin (Daily Multiple Vitamin) 1 EACH TABLET 1 Tablet ORAL DAILY Comments: Last Taken: 05/16/16 Time: 11:30am Hydralazine HCl (Hydralazine HCl) 25 MG TABLET 2 Tablet ORAL THREE TIMES DAILY Comments: Last Taken: 05/15/16 Time: 10PM Lisinopril (Lisinopril) 40 MG TABLET 1 Tablet ORAL DAILY Comments: Last Taken: 05/16/16 Time: 11:30AM Eszopiclone (Lunesta) 1 MG TABLET 1 Tablet ORAL Every night Comments: NOT GIVEN IN HOSPITAL Sertraline HCl (Sertraline HCl) 50 MG TABLET 1 Tablet ORAL DAILY Comments: Last Taken: 05/16/16 Time: 11:30am Calcium Acetate (Calcium Acetate) 667 MG TABLET 3 Tablet ORAL 3 TIMES DAILY BEFORE MEALS Comments: Last Taken: 05/16/26 Time: 11:30AM Furosemide (Lasix) 40 MG TABLET 1 Tablet ORAL DAILY Comments: Last Taken: 05/12/16 Time: 10AM Insulin Glargine,Hum.rec.anlog (Lantus Solostar) 100 UNIT/ML (3 ML) INSULN.PEN 10 Units Inject into fatty tissue 1200 Comments: NOT GIVEN IN HOSPITAL Ergocalciferol (Vitamin D2) (Vitamin D2) 50,000 UNIT CAPSULE 1 Capsule ORAL DAILY Comments: NOT GIVEN IN HOSPITAL Start taking the following new medications: Atorvastatin Calcium (Atorvastatin Calcium) 40 MG TABLET 1 Milligram ORAL 5 PM Days = 30 No Refills Copies To: MELE ULRICH MD; BILL LANCE MD; TIA MORTENSEN MD Attending MD Review Statement Documenting Attending: BILL LANCE MD Other Findings: The patient was seen on the day of discharge and agree with the plan of care as outlined.
--- NOTE | 2016-05-15 15:23 | Patient Discharge Instructions ---
Discharge Instructions General Discharge Information You were seen/treated for: Hypotension Clotted dialysis access You had these procedures: Fistulogram Non-tunneled IJ cath placement Watch for these problems: Low bp Low HR confusion Lethargy Fever Chest pain Special Instructions: Please do not take coumadin today, see your IR physician tomorrow for possibility of removal or nereyda catheter. 1. Follow up with your PCP in one week 2. VERY VERY IMPORTANT for you to follow up with your mail service coordinator prior to your kidney transplant. You might need a cardiac stress test/ catheterizaton prior to the procedure. It could hold up the transplant if you don't get it done in time! ! 3. Follow up with your regular junior marketing associate 4. Con't dialysis Diet Continue normal diet: No Recommended Diet: Renal Dialysis Activity Full Activity/No Limits: No Activity Self Limited: Yes Acute Coronary Syndrome Inclusion Criteria At DC or during hospital stay patient has or had the following: ACS DIAGNOSIS Yes Discharge Core Measures Meds if any: Prescribed or Continued at Discharge LOPEZ/ARB if EF <40% Yes Aspirin Yes Beta-Joanna Yes Statin Yes Meds if any: NOT Prescribed or Continued at Discharge Congestive Heart Failure Inclusion Criteria At DC or during hospital stay patient has or had the following: CHF DIAGNOSIS No Discharge Core Measures Meds if any: Prescribed or Continued at Discharge Meds if any: NOT Prescribed or Continued at Discharge Cerebrovascular accident Inclusion Criteria At DC or during hospital stay patient has or had the following: CVA/TIA Diagnosis No Discharge Core Measures Meds if any: Prescribed or Continued at Discharge Meds if any: NOT Prescribed or Continued at Discharge Venous thromboembolism Inclusion Criteria VTE Diagnosis No VTE Type NONE VTE Confirmed by (Test) NONE Discharge Core Measures - Per Current guidelines, there needs to be overlap - treatment for the first 5 days of Warfarin therapy. - If discharged on Warfarin prior to 5 days of - overlap therapy, the patient will need to be - assessed for post discharge needs including - *Post discharge parental anticoagulation - *Warfarin and/or parental anticoagulation education - *Follow up date to check INR post discharge At least 5 days overlap therapy as Inpatient No Meds if any: Prescribed or Continued at Discharge Note: Overlap Therapy is Warfarin and Anticoagulant Meds if any: NOT Prescribed or Continued at Discharge
[2016-05-15 16:05] VITALS: BP 150/70
--- NOTE | 2016-05-15 19:55 | NUR ---
DOMINGUEZ REMOVED AT 1800, PT TOLERATED WELL. 45 ML CLEAR YELLOW URINE DOCUMENTED, PASSED ON IN REPORT TO NEXT RN.
[2016-05-15 23:11] VITALS: BP 144/60
--- NOTE | 2016-05-16 07:14 | PN- Housestaff ---
HEAVENLY MONTANO,[facility] 05/16/16 0714: Subjective Follow-up For: Thrombosed right arm AV graft S/P Thrombolyzes of right arm AV graft , Thrombectomy of right arm AV graft, Angioplasty of proximal and mid AV graft Tele-Events Since Last Visit: Sinus bradycardia, heart rate between 47-61 Subjective: Patient seen and examined this morning. She was lying comfortably in bed in no acute distress getting her dialysis, dialysis has to be done through IJ catheter again today as no flow was obtained through the AV fistula, remains afebrile, other vitals within normal limits. Review of Systems Constitutional: Reports: see HPI. Objective Last 24 Hrs of Vital Signs/I&O Vital Signs Date Time Temp Pulse Resp B/P Pulse O2 O2 Flow FiO2 Ox Delivery Rate 05/16 0807 97.6 55 20 166/64 93 Room Air 05/16 0800 Room Air 05/16 0535 45 05/15 2311 98.0 60 20 144/60 93 05/15 2139 64 138/64 05/15 2139 64 138/64 05/15 1605 97.4 64 20 150/70 96 05/15 1306 58 130/50 Intake & Output 05/16 1600 05/16 0800 05/16 0000 Intake Total 120 240 Output Total 45 Balance 120 195 Intake, Oral 120 240 Number 0 0 Bowel Movements Output, Urine 45 Patient 72.575 kg Weight Physical Exam General Appearance: Alert, Oriented X3, Cooperative, No Acute Distress Assessment/Plan Assessment: This is a 66-year-old female with past medical history significant for ESRD on hemodialysis, hypertension, diabetes, who was brought in for chief complaint of acute shortness of breath and bradycardia accompanied by unresponsiveness during her hemodialysis. Of note, during admission is noted that her dialysis access has clotted. Patient got IJ non-tunnelled cath placed on 05/11/2016. She is due for renal transplant on May 28. Patient was transferred from ICU yesterday, Initially there was concern that patient might have ARDS/pulmonary edema/pneumonia. She was started on Ceftriaxone and vancomycin and subsequently switched to Ceftaz which has been discontinued. Patient has been afebrile, white count stable; saturating well on room air. Repeat chest x-ray yesterday showed dissolution of infiltrates and low probability of pneumonia, chris cultures no growth to date. Increased troponins: Resolved, upon admission up to 2.69 subsequently trended down. No EKG changes. Hemodynamically stable. Possible etiology of elevated troponins, likely demand ischemia secondary to severe anemia and ESRD with decreased clearance of the troponins. She was transfused 2 units PRBCs on 05/11 and subsequently hemodialyzed. H&H now low but stable, which is up from 6.7 at admission. She will require outpatient stress test/work up prior to her renal transplant. FOBT-Guiac all stool. Cardiology is already on board, no recommendation of inpatient interventions at this point, patient would likely need a repeat nuclear stress test or possibly cardiac catheterization prior to renal transplant which always be done as an outpatient. She is aware of this. History of DVT currently on Coumadin: As per patient she has been on warfarin for the past 4 months, to be dosed as per INR. End-stage renal disease on dialysis: Patient has end-stage renal disease, getting dialysis through IJ, as no good flow was obtained through AV fistula. Patient to be discharge today with nereyda catheter as per nephrology [facility], she will see IR physician in [facility] and either quniton catherter will be removed or replaced dependent on AVG patency. Patient informed not to take coumadin today and INR will be checked by IDR megan. Also, CHARLI was performed for stool guaic(no stool in rectum, sample couldnt be obtained for testing of ocult blood in stool), as patient did not have bowel movement and she refused to take bowel regimen, she has been advised to follow up with PCP and get CBC repeated to ensure H&h stability upon discharge. Patient remains in agreement. DVT prophylaxis patient is on warfarin CODE STATUS full code Problem List: 1. End stage kidney disease 2. Symptomatic bradycardia 3. Anemia Pain Ratin Pain Location: None Pain Goal: Remain pain free Pain Plan: Mild pain pathway Tomorrow's Labs & Rationales: INR for Coumadin dosing CBC for H&H monitoring Consulting Request: Consulting Specialty: Cardiology BILL LANCE MD 05/16/16 9730: Attending MD Review Statement Attending Statement Attending Statement: examined this patient, discuss w/resident/PA/MIRROR FABRICATION SUPERVISOR, agreed w/resident/PA/MIRROR FABRICATION SUPERVISOR, reviewed EMR data (avail), discussed with nursing, discussed with case mgmt, amended to note Attending Assessment/Plan: The patient was seen and discussed with house staff. Agree wtih the plan of care as outlined.
[2016-05-16 08:07] VITALS: BP 166/64
[2016-05-16 08:52] LABS: ABSOLUTE BASOPHIL COUNT 0.1 /CUMM (0.0-0.2); ABSOLUTE EOSINOPHIL COUNT 0.3 /CUMM (0.0-0.7); ABSOLUTE GRANULOCYTE CT 6.6 /CUMM (1.4-6.5); ABSOLUTE LYMPH COUNT 1.5 /CUMM (1.2-3.4); ABSOLUTE MONOCYTE COUNT 0.8 /CUMM (0.10-0.60); BASOPHIL % 0.6 % (0.0-2.0); GRANULOCYTE % 71.9 % (42.2-75.2); HEMATOCRIT 26.6 % (37-47); MEAN CORPUSCULAR HGB 29.7 PG (27.0-31.0); MEAN CORPUSCULAR HGB CONC 32.5 G/DL (33.0-37.0); MEAN CORPUSCULAR VOLUME 91.5 FL (81.0-99.0); MEAN PLATELET VOLUME 8.3 FL (7.4-10.4); PLATELET COUNT 324 /CUMM (130-400); RBC DISTRIBUTION WIDTH 17.2 % (11.5-14.5); RED BLOOD CELL CT 2.91 /CUMM (4.20-5.40); WHITE BLOOD CELL COUNT 9.2 /CUMM (4.8-10.8)
[2016-05-16 09:07] LABS: PT 29.9 SEC (9.4-12.5)
--- NOTE | 2016-05-16 10:50 | PN- Nephrology ---
Assessment/Plan Assessment: 1. End-stage renal disease 2. Shortness of breath and altered mental status - transient - now completely resolved; etiology uncertain 3. Thrombosed right upper arm AVG, status post thrombectomy yesterday but with poor flow this morning 4. Severe anemia requiring 2 unit packed RBC transfusion; etiology of anemia, which had recently worsened, still unknown Suggestion: 1. Hemodialysis today - in progress via her right IJ non-tunneled catheter 2. Can be discharged following dialysis today 3. I have made arrangements for her to be seen by her usual IR physician in [place] tomorrow who will reevaluate her AVG and either remove her DLQ or replace it with a tunneled catheter if needed 4. Would continue to hold her Coumadin today; no need for Vit K (discussed with her IR physician) Subjective Subjective: Patient has no complaints today. She is however anxious to go home. Seen with dialysis. Unfortunately, her right upper arm AVG was easily cannulated but flows are poor. As a result, we are using her non-tunneled right IJ catheter for access today. Objective Vital Signs and I&Os Vital Signs Date Time Temp Pulse Resp B/P Pulse O2 O2 Flow FiO2 Ox Delivery Rate 05/16 0807 97.6 55 20 166/64 93 Room Air 05/16 0800 Room Air 05/16 0535 45 05/15 2311 98.0 60 20 144/60 93 05/15 2139 64 138/64 05/15 2139 64 138/64 05/15 1605 97.4 64 20 150/70 96 05/15 1306 58 130/50 Intake & Output 05/16 1600 05/16 0400 05/15 1600 05/15 0400 05/14 0400 Intake Total 120 240 630 100 240 335 Output Total 45 935 53 6393 250 Balance 120 195 480 50 -1310 85 Intake, IV 20 Intake, Oral 120 240 630 100 240 315 Number 0 0 0 Bowel Movements Output, 1000 Dialysate Output, Urine 45 150 50 550 250 Patient 160 lb 154 lb 153 lb Weight Physical Exam: General: Well-developed white female in no acute distress Skin: Without rash or jaundice HEENT: Conjunctivae pink, sclerae anicteric, mucous membranes moist Neck: Without masses or thyromegaly, no supraclavicular or cervical adenopathy; there is a right IJ non-tunneled dialysis catheter in place Chest: Clear to P&A Heart: Regular rate and rhythm without S3 or rub Abdomen: Soft and nontender without palpable masses or organomegaly Extremities: Without cyanosis or LE edema; the right upper arm AVG has a bruit with some surrounding edema Current Medications: Current Medications Sig/Su Start time Last Medication Dose Route Stop Time Status Admin Acetaminophen 650 MG Q6P PRN 05/11 1929 AC PO Acetaminophen 1,000 MG Q6P PRN 05/11 193 AC IV Amlodipine Besylate 10 MG DAILY 05/12 1000 AC 05/15 PO 0856 Aspirin 81 MG DAILY 05/13 1721 AC 05/15 PO 1306 Atorvastatin Calcium 40 MG 1700 05/14 1700 AC 05/15 PO 1752 Calcium Acetate 667 MG WM 05/11 1700 AC 05/15 PO 1752 Diclofenac Sodium 1 CATALINA 4 TIMES/DAY 05/12 1400 AC 05/15 TOP 2139 Epoetin Amanuel 10,000 UNIT .WITH DIALYSIS 05/11 2044 AC IV Ergocalciferol 50,000 IU ONCE A WEEK 05/18 1000 AC PO Hydralazine HCl 50 MG Q8 05/13 1530 AC 05/15 PO 2139 Insulin Aspart 0 TIDAC 05/12 1200 AC 05/15 SC 1752 Lisinopril 40 MG DAILY 05/12 1000 AC 05/15 PO 0856 Metoprolol Tartrate 12.5 MG BID 05/13 2200 AC 05/15 PO 2139 Morphine Sulfate 1 MG Q6-PRN PRN 05/11 1930 AC 05/13 IV 2121 Multivitamins 1 TAB DAILY 05/12 1000 AC 05/15 PO 1306 Polyethylene Glycol 17 GM DAILY 05/15 1333 AC 05/15 PO 1414 Ramelteon 8 MG AT BEDTIME PRN 05/11 1815 AC 05/13 PO 2109 Senna/Docusate Sodium 1 TAB BID PRN 05/15 1345 AC PO Sertraline HCl 50 MG DAILY 05/12 1000 AC 05/15 PO 1305 Warfarin Sodium 5 MG COUMADIN 1700 ONE 05/15 1700 DC 05/15 PO 05/15 1701 1752 Results Pertinent Lab Results: Laboratory Tests 05/16 0747 Chemistry Sodium (137 - 145 mmol/L) 136 L Potassium (3.5 - 5.1 mmol/L) 4.4 Chloride (98 - 107 mmol/L) 100 Carbon Dioxide (22 - 30 mmol/L) 24 Anion Gap (5 - 16) 12 BUN (7 - 17 mg/dL) 54 H Creatinine (0.5 - 1.0 mg/dL) 6.6 *H Estimated GFR (>60 ml/min) 6 L BUN/Creatinine Ratio (7 - 25 %) 8.2 Calcium (8.4 - 10.2 mg/dL) 8.8 Phosphorus (2.5 - 4.5 mg/dL) 5.8 H Magnesium (1.6 - 2.3 mg/dL) 2.0 Albumin (3.5 - 5.0 g/dL) 3.1 L Coagulation PT (9.4 - 12.5 SEC) 29.9 H INR (0.90 - 1.19) 2.88 H Hematology CBC w Diff MAN DIFF ORDERED WBC (4.8 - 10.8 /CUMM) 9.2 RBC (4.20 - 5.40 /CUMM) 2.91 L Hgb (12.0 - 16.0 G/DL) 8.6 L Hct (37 - 47 %) 26.6 L MCV (81.0 - 99.0 FL) 91.5 MCH (27.0 - 31.0 PG) 29.7 RDW (11.5 - 14.5 %) 17.2 H Plt Count (130 - 400 /CUMM) 324 MPV (7.4 - 10.4 FL) 8.3 Gran % (42.2 - 75.2 %) 71.9 Lymphocytes % (20.5 - 51.1 %) 16.2 L Monocytes % (1.7 - 9.3 %) 8.3 Eosinophils % (0 - 5 %) 3.0 Basophils % (0.0 - 2.0 %) 0.6 Absolute Granulocytes (1.4 - 6.5 /CUMM) 6.6 H Absolute Lymphocytes (1.2 - 3.4 /CUMM) 1.5 Absolute Monocytes (0.10 - 0.60 /CUMM) 0.8 H Absolute Eosinophils (0.0 - 0.7 /CUMM) 0.3 Absolute Basophils (0.0 - 0.2 /CUMM) 0.1 Platelet Estimate (ADEQUATE) VERIFIED BY SMEAR Polychromasia 1+ Poikilocytosis 1+ Anisocytosis 1+ Ovalocytes 1+ PUBS MCHC (33.0 - 37.0 G/DL) 32.5 L 05/15 05/14 0650 0515 Chemistry Sodium (137 - 145 mmol/L) 139 137 Potassium (3.5 - 5.1 mmol/L) 4.7 4.4 Chloride (98 - 107 mmol/L) 102 105 Carbon Dioxide (22 - 30 mmol/L) 26 22 Anion Gap (5 - 16) 11 11 BUN (7 - 17 mg/dL) 38 H 54 H Creatinine (0.5 - 1.0 mg/dL) 5.0 H 7.0 *H Estimated GFR (>60 ml/min) 9 L 6 L Glucose (65 - 99 mg/dL) 273 H 169 H Calcium (8.4 - 10.2 mg/dL) 8.5 8.9 Phosphorus (2.5 - 4.5 mg/dL) 7.2 H 5.9 H Magnesium (1.6 - 2.3 mg/dL) 2.0 1.9 Total Bilirubin (0.2 - 1.3 mg/dL) 0.3 0.4 AST (14 - 36 U/L) 16 17 ALT (9 - 52 U/L) 32 36 Albumin (3.5 - 5.0 g/dL) 3.0 L 3.2 L Coagulation PT (9.4 - 12.5 SEC) 25.3 H 21.0 H INR (0.90 - 1.19) 2.43 H 2.01 H Hematology CBC w Diff MAN DIFF ORDERED NO MAN DIFF REQ WBC (4.8 - 10.8 /CUMM) 9.8 8.9 RBC (4.20 - 5.40 /CUMM) 3.07 L 3.06 L Hgb (12.0 - 16.0 G/DL) 9.1 L 9.0 L Hct (37 - 47 %) 28.5 L 27.9 L MCV (81.0 - 99.0 FL) 92.7 91.1 MCH (27.0 - 31.0 PG) 29.5 29.4 RDW (11.5 - 14.5 %) 17.8 H 17.5 H Plt Count (130 - 400 /CUMM) 322 323 MPV (7.4 - 10.4 FL) 8.4 8.2 Gran % (42.2 - 75.2 %) 88.6 H 71.6 Lymphocytes % (20.5 - 51.1 %) 6.1 L 14.4 L Monocytes % (1.7 - 9.3 %) 5.3 10.2 H Eosinophils % (0 - 5 %) 0 3.5 Basophils % (0.0 - 2.0 %) 0 L 0.3 Absolute Granulocytes (1.4 - 6.5 /CUMM) 8.6 H 6.4 Absolute Lymphocytes (1.2 - 3.4 /CUMM) 0.6 L 1.3 Absolute Monocytes (0.10 - 0.60 /CUMM) 0.5 0.9 H Absolute Eosinophils (0.0 - 0.7 /CUMM) 0 0.3 Absolute Basophils (0.0 - 0.2 /CUMM) 0 0 Platelet Estimate (ADEQUATE) VERIFIED BY SMEAR Polychromasia 1+ Poikilocytosis 1+ Anisocytosis 1+ PUBS MCHC (33.0 - 37.0 G/DL) 31.8 L 32.3 L
[2016-05-16] MEDS ORDERED: ATORVASTATIN CA40 M1 PO (13:26)
[2016-05-16 13:31] VITALS: BP 148/58
== END 2016-05-16 13:33 | DRG 981 ==
LOC: ENRESERVTM → ENRESERVDT → ERH 08:37 → 1NO 09:56 → ENPENDDIS 09:56 → CRI 09:56 → ERHI 09:56 → CRI 12:14 → 1NO 05-14 18:39
PROVIDERS: Emergency Medicine; Internal Medicine Nephrology; Preventive Medicine Public Health & General Preventive Medicine; Student in an Organized Health Care Education/Training Program; ADMIT Internal Medicine
PROC: 02HV33Z Insertion of Infusion Device into Superior Vena Cava, Percutaneous Approach (ICD-10-PCS; 2016-05-11)
PROC: 5A1D60Z (ICD-10-PCS; 2016-05-11)
PROC: 5A09357 Assistance with Respiratory Ventilation, Less than 24 Consecutive Hours, Continuous Positive Airway Pressure (ICD-10-PCS; 2016-05-11)
PROC: 30233N1 Transfusion of Nonautologous Red Blood Cells into Peripheral Vein, Percutaneous Approach (ICD-10-PCS; 2016-05-11)
PROC: 05773ZZ Dilation of Right Axillary Vein, Percutaneous Approach (ICD-10-PCS; principal; 2016-05-14)
PROC: 3E03317 Introduction of Other Thrombolytic into Peripheral Vein, Percutaneous Approach (ICD-10-PCS; principal; 2016-05-14)
PROC: 05C73ZZ Extirpation of Matter from Right Axillary Vein, Percutaneous Approach (ICD-10-PCS; principal; 2016-05-14)
DX: J96.02 Acute respiratory failure with hypercapnia (principal); N18.6 End stage renal disease; E87.2 Acidosis; I12.0 Hypertensive chronic kidney disease with stage 5 chronic kidney disease or end stage renal disease; D68.9 Coagulation defect, unspecified; I24.8 Other forms of acute ischemic heart disease; T82.868A Thrombosis due to vascular prosthetic devices, implants and grafts, initial encounter; E11.22 Type 2 diabetes mellitus with diabetic chronic kidney disease; Z79.4 Long term (current) use of insulin; D63.1 Anemia in chronic kidney disease; J96.01 Acute respiratory failure with hypoxia; E78.5 Hyperlipidemia, unspecified; F32.9 Major depressive disorder, single episode, unspecified; R00.1 Bradycardia, unspecified; Z79.01 Long term (current) use of anticoagulants; Y83.9 Surgical procedure, unspecified as the cause of abnormal reaction of the patient, or of later complication, without mention of misadventure at the time of the procedure; Z99.2 Dependence on renal dialysis
CPT/HCPCS: 1NSP; CCU; 36415; 73060-RT; 77001; 80307; 81001; 82436; 86920; 87040; 87070; 87086; 87449; 87450; 87804; 87804-59; 93005; 93010; 93306; 93970; 94799; C1725; C1752; C1769; J0131; J0456; J0690; J0713; J0885; J1100; J1644; J2405; J2997; J3370; J3490; J7060; P9016; Q9967